=== PATIENT | female | born 1945 | race Caucasian/White ===

== ENCOUNTER → 2017-10-30 | Outpatient (CLI) | payer MEDICARE ==
--- NOTE | 2017-10-30 13:43 | CT ---
EXAMINATION TYPE: CT chest w con DATE OF EXAM: 10/30/2017 COMPARISON: November 19, 2012 HISTORY: sarcoidoisis CT DLP: 475.2 mGycm Automated exposure control for dose reduction was used. CONTRAST: CT scan of the chest is performed with IV Contrast, patient injected with 100 mL of Isovue 300. FINDINGS: LUNGS: Again noted are upper lobe and mid lung zone as well as lower lobe areas of interstitial lung disease and nodularity somewhat improved from prior examination. No suspicious masses appreciated. No evidence for pleural effusion or consolidation. MEDIASTINUM: Low right paratracheal adenopathy measures 1.0 cm. Subcarinal adenopathy measures 1.8 cm and demonstrates internal calcifications and is slightly improved from prior study. AP window adenop athy persists and is also unchanged and measures 9 mm. Bilateral hilar adenopathy measuring 1 cm on t he right and less than 1 cm on the left. Subcentimeter axillary lymph nodes noted. UPPER ABDOMEN: Left adrenal mass measures 2.7 cm. Overall no change from prior study. Fatty liver.Lar ge calculus left renal pelvis measuring 2.2 cm with urothelial thickening. OTHER: No additional significant abnormality is seen. IMPRESSION: 1. Persistent interstitial and reticulonodular changes of the lungs likely improved from prior study. 2. Mediastinal hilar adenopathy as discussed. 3. Large calculus left renal pelvis measuring 2.2 cm with urothelial thickening. 4. Stable left adrenal mass may reflect adenoma. Other possibilities not excluded.
== END | disposition home or self-care (01) ==
LOC: RADCTMAIN 12:02
PROVIDERS: ATTEND Internal Medicine Critical Care Medicine
DX: R91.8 Other nonspecific abnormal finding of lung field (principal); R59.0 Localized enlarged lymph nodes
CPT/HCPCS: 82565; 84520; 71260; 36415; Q9967

== ENCOUNTER → 2020-01-21 | Outpatient (CLI) | payer MEDICARE ==
--- NOTE | 2020-01-21 12:55 | US ---
"EXAMINATION TYPE: US renals and bladder DATE OF EXAM: 01/21/2020 COMPARISON: NONE CLINICAL HISTORY: R94.4 abnormal kidney function studies,E11.21. No pain per patient. Abnormal labs. EXAM MEASUREMENTS: Right Kidney: 10.8 x 4.9 x 4.9 cm Left Kidney: 10.7 x 4.0 x 5.0 cm Right Kidney: No hydronephrosis or masses seen. Left Kidney: Moderate to severe hydronephrosis. Areas of nonshadowing linear echogenicity around the renal pelvis likely represent echogenic renal sinus fat. No shadowing nephrolithiasis. Bladder: Distended with no wall thickening. Urine is anechoic. Bilateral Jets seen IMPRESSION: 1. Moderate to severe left hydronephrosis. Further evaluation with CT exam may be of benefit. 2. No right hydronephrosis. 3. No shadowing nephrolithiasis. 4. Normal urinary bladder. A [place] level critical message alert has been initiated for Jody Escobedo DO via the [employer] 36 0 | Critical Results System on 01/21/2020 12:52 PM. This message alert has been sent to Jody adan DO via the preferences provided by the clinician for the receipt of Radiology Critical Findings. [place] essage ID [id number]."
== END | disposition home or self-care (01) ==
LOC: RADUSWWP 09:04
PROVIDERS: ATTEND Family Medicine
DX: N13.30 Unspecified hydronephrosis (principal); E11.21 Type 2 diabetes mellitus with diabetic nephropathy
CPT/HCPCS: 76770

== ENCOUNTER → 2020-03-03 | Outpatient (CLI) | payer MEDICARE ==
--- NOTE | 2020-03-03 10:51 | CT ---
EXAMINATION TYPE: CT abdomen pelvis wo/w con DATE OF EXAM: 03/03/2020 HISTORY: abnormal US, hydronephrosis CT DLP: 2704.1mGycm Automated Exposure Control for Dose Reduction was Utilized. CONTRAST: CT scan of the abdomen and pelvis is performed with oral and without and with IV Contrast, patient in jected with 80 mL of Isovue 300. COMPARISON: Renal ultrasound January 21, 2020. CT chest October 30, 2017 and older CTs. FINDINGS: LUNG BASES: Mild linear scarring and/or atelectatic change. LIVER/GB: Gallbladder not seen and presumed surgically absent PANCREAS: No significant abnormality is seen. SPLEEN: No significant abnormality is seen. ADRENALS: Stable 2.4 cm left adrenal mass of low density consistent with benign lipid rich adenoma. KIDNEYS: Noncontrast images show 5 mm calculus lower pole level right kidney coronal image 53. There is larger 15 mm calculus lower pole left kidney coronal image 66 and 3 mm punctate calcificatio n mid pole level left kidney coronal image 66. There is a 5 mm calculus left kidney lower pole level coronal image 63. In addition there are 17 mm calculus at left UPJ axial image 33 series 3. This was present and noted on [address] Postcontrast images show symmetric corticomedullary uptake and excretion with moderate to severe left -sided hydronephrosis. No right-sided hydronephrosis. No hydroureter is present bilaterally. No intra luminal calculus in the poorly distended bladder. BOWEL: Oral contrast which is level of mid transverse colon. Focal moderate concentric wall thickenin g coronal image 23 is present. Follow-up advised. No suspicious proximal dilatation. Appendix within normal limits UTERUS/ADNEXA: Anteverted uterus. Scattered bilateral pelvic phleboliths LYMPH NODES: No greater than 1cm abdominal or pelvic lymph nodes are appreciated. OSSEOUS STRUCTURES: Exaggerated lumbar lordosis. Prominent facet arthropathy throughout the lumbar sp ine. Slight grade 1 anterolisthesis L3 on L4 and L4 on L5. OTHER: Moderate to large sized fat-containing umbilical hernia. IMPRESSION: Confirmation of moderate to severe left-sided hydronephrosis without delayed excretion du e to large calculus at left UPJ correlating with recent ultrasound. Additional nonobstructing renal c alculi bilaterally left more numerous than right.
== END | disposition home or self-care (01) ==
LOC: RADCTMAIN 07:53
PROVIDERS: ATTEND Family Medicine
DX: N13.2 Hydronephrosis with renal and ureteral calculous obstruction (principal); N13.30 Unspecified hydronephrosis
CPT/HCPCS: 82565; 84520; 74178; 36415; Q9967

== ENCOUNTER 2020-04-23 17:35 | Observation (INO) | payer MEDICARE ==
[2020-04-23] MEDS ORDERED: SODIUM CHLORIDE 0.9% 1,000 ML IV STA (17:52)
[2020-04-23 18:07] LABS: Basophils % (A) 0 %; Eosinophils # (A) 0.2 k/uL (0-0.7); Eosinophils % (A) 1 %; HCT 46.6 % (34.0-46.0); HGB 15.2 gm/dL (11.4-16.0); Lymphocytes # (A) 0.8 k/uL (1.0-4.8); Lymphocytes % (A) 8 %; MCH 30.7 pg (25.0-35.0); MCHC 32.7 g/dL (31.0-37.0); MCV 93.9 fL (80.0-100.0); Mean Platelet Volume 6.7; Monocytes # (A) 0.5 k/uL (0-1.0); Monocytes % (A) 5 %; Neutrophils # (A) 9.4 k/uL (1.3-7.7); Neutrophils % (A) 86 %; Platelet Count 191 k/uL (150-450); RBC 4.96 m/uL (3.80-5.40); RDW 14.7 % (11.5-15.5); WBC 10.9 k/uL (3.8-10.6)
--- NOTE | 2020-04-23 18:14 | ED ---
General Adult HPI - General Chief complaint: Weakness Stated complaint: Dehydration/Weakness Time Seen by Provider: 04/23/20 17:40 Source: patient, EMS Mode of arrival: EMS - History of Present Illness Initial comments: Dictation was produced using [employer] dictation software. please excuse any grammatical, word or spelling errors. This patient was cared for during a federal and state declared state of emergency secondary to Covid 19 Chief Complaint: 74-year-old female with kidney disease, dementia, diabetes presents to the emergency department for episode of weakness. History of Present Illness: 74-year-old female she presents to emergency department for weakness. Patient reports that she's been feeling weak today. Patient is a poor historian. EMS and patient's niece reports that she's had an episode of weakness today. She was assisted to the bathroom where she is having significant difficulties. Phallus and the toilet and when she tried to stand up she could not really get up. She ambulated couple steps where she felt really weak and could not stand up anymore. She was slowly. She was escorted down to the ground by her family member. Patient lives at home with niece, niece's in a 10-year-old daughter. The has severe back problems and the niece is working full-time unable to care for at home. Niece who has been tr valeria to help care for her reports that she was trying to get home health care nursing to assist in caring for the patient. He did not qualify. Niece is concerned that patient is seemingly more more difficult to care for at home. She has chronic diarrhea. She is seen for diarrhea by primary care physician who told niece that it's from dietary reasons. The ROS documented in this emergency department record has been reviewed and confirmed by me. Those systems with pertinent positive or negative responses have been documented in the HPI. All other systems are other negative and/or noncontributory. PHYSICAL EXAM: General Impression: Alert and oriented x3, not in acute distress HEENT: Normocephalic atraumatic, extra-ocular movements intact, pupils equal and reactive to light bilaterally, dry mucous membranes Cardiovascular: Heart regular rate and rhythm Chest: Able to complete full sentences, no retractions, no tachypnea Abdomen: abdomen soft, non-tender, non-distended, no organomegaly Musculoskeletal: Pulses present and equal in all extremities, no peripheral edema Motor: no focal deficits noted Neurological: CN II-XII grossly intact, no focal motor or sensory deficits noted Skin: Intact with no visualized rashes Psych: Normal affect and mood ED course: 74-year-old female presents to the emergency department for episode of weakness. Vital signs upon arrival are within acceptable limits. Patient appears comfortable at this time. Patient has a a poor social situation. EKG interpretation: Ventricular rate 76, sinus rhythm,. Interval 172, QRS 82, QTc 461. No MD prolongation, no QTC prolongation, no ST or T-wave changes noted. No old EKG for comparison. Overall, this EKG is unremarkable Laboratory evaluation obtained. Mild leukocytosis 10.9. Metabolic panel shows non-gap acidosis that is very mild. Lactic acidosis of 6.3. Urinalysis is negative per chest x-ray is clear. Medications reviewed. I displaced not entirely clear what is causing patient's lactic acidosis. It's likely from metformin. Patient given intravenous fluids. Otherwise, no other obvious source. Case discussed with [facility] nurse practitioner was willing to accept patient's [facility] hospitalist group. - Related Data Home Medications Medication Instructions Recorded Confirmed Aspirin EC [Ecotrin Low Dose] 81 mg PO DAILY 04/23/20 04/23/20 Atorvastatin [Lipitor] 20 mg PO HS 04/23/20 04/23/20 Clopidogrel Bisulfate [Plavix] 75 mg PO DAILY 04/23/20 04/23/20 Gabapentin [Neurontin] 100 mg PO TID 04/23/20 04/23/20 lisinopriL [Zestril] 5 mg PO HS 04/23/20 04/23/20 metFORMIN HCL [Glucophage] 1,000 mg PO BID 04/23/20 04/23/20 sitaGLIPtin PHOSPHATE [Januvia] 100 mg PO DAILY 04/23/20 04/23/20 Allergies Allergy/AdvReac Type Severity Reaction Status Date / Time No Known Allergies Allergy Verified 10/02/17 10:21 Review of Systems ROS Statement: Those systems with pertinent positive or pertinent negative responses have been documented in the HPI. ROS Other: All systems not noted in ROS Statement are negative. Past Medical History Past Medical History: Diabetes Mellitus, Respiratory Disorder Additional Past Medical History / Comment(s): sarcoidosis History of Any Multi-Drug Resistant Organisms: None Reported Past Surgical History: Cholecystectomy Past Anesthesia/Blood Transfusion Reactions: No Reported Reaction Past Psychological History: Depression Smoking Status: Former smoker Past Alcohol Use History: None Reported Past Drug Use History: None Reported Course Vital Signs 04/23/20 17:37 Temperature 97.7 F Pulse Rate 79 Respiratory 18 Rate Blood Pressure 138/83 O2 Sat by Pulse 98 Oximetry Medical Decision Making - Lab Data Result diagrams: 04/23/20 18:01 04/23/20 18:01 Lab Results 04/23/20 04/23/20 04/23/20 Range/Units 18:01 18:01 18:01 WBC 10.9 H (3.8-10.6) k/uL RBC 4.96 (3.80-5.40) m/uL Hgb 15.2 (11.4-16.0) gm/dL Hct 46.6 H (34.0-46.0) % MCV 93.9 (80.0-100.0) fL MCH 30.7 (25.0-35.0) pg MCHC 32.7 (31.0-37.0) g/dL RDW 14.7 (11.5-15.5) % Plt Count 191 (150-450) k/uL MPV 6.7 Neutrophils % 86 % Lymphocytes % 8 % Monocytes % 5 % Eosinophils % 1 % Basophils % 0 % Neutrophils # 9.4 H (1.3-7.7) k/uL Lymphocytes # 0.8 L (1.0-4.8) k/uL Monocytes # 0.5 (0-1.0) k/uL Eosinophils # 0.2 (0-0.7) k/uL Basophils # 0.0 (0-0.2) k/uL Sodium 141 (137-145) mmol/L Potassium 3.7 (3.5-5.1) mmol/L Chloride 109 H (98-107) mmol/L Carbon Dioxide 21 L (22-30) mmol/L Anion Gap 11 mmol/L BUN 14 (7-17) mg/dL Creatinine 0.88 (0.52-1.04) mg/dL Est GFR (CKD-EPI)AfAm 74 (>60 ml/min/1.73 sqM) Est GFR (CKD-EPI)NonAf 64 (>60 ml/min/1.73 sqM) Glucose 159 H (74-99) mg/dL Plasma Lactic Acid Raudel 6.4 H* (0.7-2.0) mmol/L Calcium 9.3 (8.4-10.2) mg/dL Magnesium 1.5 L (1.6-2.3) mg/dL Total Bilirubin 0.7 (0.2-1.3) mg/dL AST 39 H (14-36) U/L ALT 37 H (4-34) U/L Alkaline Phosphatase 87 (38-126) U/L Total Protein 6.7 (6.3-8.2) g/dL Albumin 3.7 (3.5-5.0) g/dL Lipase (23-300) U/L Urine Color Urine Appearance (Clear) Urine pH (5.0-8.0) Ur Specific [place] (1.001-1.035) Urine Protein (Negative) Urine Glucose (UA) (Negative) Urine Ketones (Negative) Urine Blood (Negative) Urine Nitrite (Negative) Urine Bilirubin (Negative) Urine Urobilinogen (<2.0) mg/dL Ur Leukocyte Esterase (Negative) Urine RBC (0-5) /hpf Urine WBC (0-5) /hpf Hyaline Casts (0-2) /lpf Urine Mucus (None) /hpf 04/23/20 04/23/20 Range/Units 18:01 18:29 WBC (3.8-10.6) k/uL RBC (3.80-5.40) m/uL Hgb (11.4-16.0) gm/dL Hct (34.0-46.0) % MCV (80.0-100.0) fL MCH (25.0-35.0) pg MCHC (31.0-37.0) g/dL RDW (11.5-15.5) % Plt Count (150-450) k/uL MPV Neutrophils % % Lymphocytes % % Monocytes % % Eosinophils % % Basophils % % Neutrophils # (1.3-7.7) k/uL Lymphocytes # (1.0-4.8) k/uL Monocytes # (0-1.0) k/uL Eosinophils # (0-0.7) k/uL Basophils # (0-0.2) k/uL Sodium (137-145) mmol/L Potassium (3.5-5.1) mmol/L Chloride (98-107) mmol/L Carbon Dioxide (22-30) mmol/L Anion Gap mmol/L BUN (7-17) mg/dL Creatinine (0.52-1.04) mg/dL Est GFR (CKD-EPI)AfAm (>60 ml/min/1.73 sqM) Est GFR (CKD-EPI)NonAf (>60 ml/min/1.73 sqM) Glucose (74-99) mg/dL Plasma Lactic Acid Raudel (0.7-2.0) mmol/L Calcium (8.4-10.2) mg/dL Magnesium (1.6-2.3) mg/dL Total Bilirubin (0.2-1.3) mg/dL AST (14-36) U/L ALT (4-34) U/L Alkaline Phosphatase (38-126) U/L Total Protein (6.3-8.2) g/dL Albumin (3.5-5.0) g/dL Lipase 32 (23-300) U/L Urine Color Yellow Urine Appearance Clear (Clear) Urine pH 5.0 (5.0-8.0) Ur Specific [place] 1.018 (1.001-1.035) Urine Protein Negative (Negative) Urine Glucose (UA) Negative (Negative) Urine Ketones Negative (Negative) Urine Blood Negative (Negative) Urine Nitrite Negative (Negative) Urine Bilirubin Negative (Negative) Urine Urobilinogen <2.0 (<2.0) mg/dL Ur Leukocyte Esterase Trace H (Negative) Urine RBC 2 (0-5) /hpf Urine WBC 5 (0-5) /hpf Hyaline Casts 6 H (0-2) /lpf Urine Mucus Rare H (None) /hpf Disposition Clinical Impression: Lactic acidosis Disposition: ADMITTED IP TO THIS HOSP Condition: Fair Referrals: Jody Escobedo DO [Primary Care Provider] - 1-2 days Decision Time: 19:08
[2020-04-23 18:20] LABS: Albumin 3.7 g/dL (3.5-5.0); Calcium 9.3 mg/dL (8.4-10.2); Magnesium 1.5 mg/dL (1.6-2.3); Potassium 3.7 mmol/L (3.5-5.1); Total Bilirubin 0.7 mg/dL (0.2-1.3); Total Protein 6.7 g/dL (6.3-8.2)
[2020-04-23] MEDS ORDERED: PIPERACILLIN-TAZOBACTAM 3.375 GM in SODIUM CHLORIDE 0.9% 100 ML IVPB STA (18:34)
[2020-04-23 18:40] LABS: Appearance,Urine Clear (Clear); Bilirubin,Urine Negative (Negative); Blood,Urine Negative (Negative); Color,Urine Yellow; Glucose,Urine (UA) Negative (Negative); Hyaline Casts,Urine 6 /lpf (0-2); Ketones,Urine Negative (Negative); Leukocyte Esterase,Urine Trace (Negative); Mucus,Urine Rare /hpf; Nitrite,Urine Negative (Negative); Protein,Urine Negative (Negative); RBC,Urine 2 /hpf (0-5); Specific Gravity,Urine 1.018 (1.001-1.035); Urobilinogen,Urine <2.0 mg/dL (<2.0); WBC,Urine 5 /hpf (0-5)
--- NOTE | 2020-04-23 18:49 | XR ---
EXAMINATION TYPE: XR chest 1V portable DATE OF EXAM: 04/23/2020 COMPARISON: NONE HISTORY: Weakness and intermittent nausea and vomiting. TECHNIQUE: Single frontal view of the chest is obtained. FINDINGS: There is no focal air space opacity, pleural effusion, or pneumothorax seen. The cardiac silhouette size is within normal limits. The osseous structures are intact. IMPRESSION: No acute process.
[2020-04-23] MEDS: MAGNESIUM SULFATE-D5W PMX 1 GM in DEXTROSE/WATER 1 100ML.BAG IVPB SCH ×2 (18:55→20:12)
[2020-04-23] MEDS ORDERED: ONDANSETRON 4 MG/2 ML VIAL IVP PRN (19:02)
[2020-04-23] MEDS ORDERED: NALOXONE 0.4 MG/ML 1 ML VIAL IV PRN (19:02)
[2020-04-23] MEDS ORDERED: ACETAMINOPHEN TAB 325 MG TAB PO PRN (19:02)
[2020-04-23] MEDS: SODIUM CHLORIDE 0.9% 1,000 ML IV SCH (21:35)
[2020-04-24 04:20] LABS: Basophils % (A) 0 %; Eosinophils # (A) 0.1 k/uL (0-0.7); Eosinophils % (A) 1 %; HCT 39.4 % (34.0-46.0); Lymphocytes # (A) 1.5 k/uL (1.0-4.8); Lymphocytes % (A) 19 %; MCH 30.9 pg (25.0-35.0); MCV 93.8 fL (80.0-100.0); Monocytes # (A) 0.5 k/uL (0-1.0); Monocytes % (A) 6 %; Neutrophils # (A) 5.6 k/uL (1.3-7.7); Neutrophils % (A) 72 %; Platelet Count 164 k/uL (150-450); RDW 14.8 % (11.5-15.5); WBC 7.8 k/uL (3.8-10.6)
[2020-04-24] MEDS: SODIUM CHLORIDE 0.9% 1,000 ML IV SCH ×3 (04:39→23:28)
[2020-04-24 04:50] LABS: ALT 32 U/L (4-34); AST 32 U/L (14-36); African American GFR (CKD) 85 (>60 ml/min/1.73 sqM); Albumin 2.9 g/dL (3.5-5.0); Albumin/Globulin Ratio 1.1; Alkaline Phosphatase 72 U/L (38-126); Blood Urea Nitrogen 11 mg/dL (7-17); Calcium 8.8 mg/dL (8.4-10.2); Carbon Dioxide 23 mmol/L (22-30); Globulin 2.7 g/dL; Glucose 110 mg/dL (74-99); Non-African American GFR(CKD) 74 (>60 ml/min/1.73 sqM); Potassium 3.8 mmol/L (3.5-5.1); Sodium 140 mmol/L (137-145); Total Bilirubin 0.7 mg/dL (0.2-1.3); Total Protein 5.6 g/dL (6.3-8.2)
[2020-04-24 04:51] LABS: Anion Gap 5 mmol/L; Chloride 112 mmol/L (98-107)
[2020-04-24 07:11] LABS: Glucose,Whole Blood 100 mg/dL (75-99)
[2020-04-24] MEDS ORDERED: PANTOPRAZOLE 40 MG/10 ML VIAL IV SCH (09:00)
--- NOTE | 2020-04-24 11:05 | P.HPIM ---
History of Present Illness 74-year-old female was brought in because of from generalized weakness. Patient didn't have a fall but about to fall and was tested to ground. Patient is alert oriented 2. Patient does complain that she has memory issues for a while. Patient appears to have dementia which may be vascular dementia , patient is able to provide me fairly good history and patient denied any fever chills patient denied dysuria cough. All the workup for sepsis is negative. Patient is found to have lactic acidosis and patient is on metformin which can cause lactic acidosis. Patient is bit dehydrated patient received IV fluids overnight. Patient is on dual antiplatelet therapy not sure why patient is on dual antiplatelet therapy. Review of Systems REVIEW OF SYSTEMS: CONSTITUTIONAL: No fever, no malaise, no fatigue. HEENT: No recent visual problems or hearing problems. Denied any sore throat. CARDIOVASCULAR: No chest pain, orthopnea, PND, no palpitations, no syncope. PULMONARY: No shortness of breath, no cough, no hemoptysis. GASTROINTESTINAL: No diarrhea, no nausea, no vomiting, no abdominal pain. NEUROLOGICAL: No headaches, no weakness, no numbness. HEMATOLOGICAL: Denies any bleeding or petechiae. GENITOURINARY: Denies any burning micturition, frequency, or urgency. MUSCULOSKELETAL/RHEUMATOLOGICAL: Denies any joint pain, swelling, or any muscle pain. ENDOCRINE: Denies any polyuria or polydipsia. The rest of the 14-point review of systems is negative. Past Medical History Past Medical History: Dementia, Diabetes Mellitus, Respiratory Disorder Additional Past Medical History / Comment(s): sarcoidosis History of Any Multi-Drug Resistant Organisms: None Reported Past Surgical History: Cholecystectomy Past Anesthesia/Blood Transfusion Reactions: No Reported Reaction Past Psychological History: Depression Smoking Status: Never smoker Past Alcohol Use History: None Reported Past Drug Use History: None Reported Medications and Allergies Home Medications Medication Instructions Recorded Confirmed Type Aspirin EC [Ecotrin Low Dose] 81 mg PO DAILY 04/23/20 04/23/20 History Atorvastatin [Lipitor] 20 mg PO HS 04/23/20 04/23/20 History Clopidogrel Bisulfate [Plavix] 75 mg PO DAILY 04/23/20 04/23/20 History Gabapentin [Neurontin] 100 mg PO TID 04/23/20 04/23/20 History lisinopriL [Zestril] 5 mg PO HS 04/23/20 04/23/20 History sitaGLIPtin PHOSPHATE [Januvia] 100 mg PO DAILY 04/23/20 04/23/20 History Allergies Allergy/AdvReac Type Severity Reaction Status Date / Time No Known Allergies Allergy Verified 10/02/17 10:21 Physical Exam Vitals: Vital Signs Temp Pulse Pulse Resp BP BP Pulse Ox 04/24/20 07:38 97.9 F 63 17 158/83 97 04/24/20 01: 97.3 F L 53 L 129/66 96 04/23/20 21:00 18 04/23/20 20:59 97.8 F 63 108/64 96 04/23/20 20:15 70 18 116/52 95 04/23/20 17:37 97.7 F 79 18 138/83 98 Intake and Output 04/23/20 04/24/20 04/24/20 22:59 06:59 14:59 Other: Voiding Method Diaper Diaper Weight 81.647 kg PHYSICAL EXAMINATION: GENERAL: The patient is alert and oriented x3, not in any acute distress. Well developed, well nourished. HEENT: Pupils are round and equally reacting to light. EOMI. No scleral icterus. No conjunctival pallor. Normocephalic, atraumatic. No pharyngeal erythema. No thyromegaly. CARDIOVASCULAR: S1 and S2 present. No murmurs, rubs, or gallops. PULMONARY: Chest is clear to auscultation, no wheezing or crackles. ABDOMEN: Soft, nontender, nondistended, normoactive bowel sounds. No palpable organomegaly. MUSCULOSKELETAL: No joint swelling or deformity. EXTREMITIES: No cyanosis, clubbing, or pedal edema. NEUROLOGICAL: Gross neurological examination did not reveal any focal deficits. SKIN: No rashes. Results CBC & Chem 7: 04/24/20 04:00 04/24/20 04:00 Labs: Abnormal Lab Results - Last 24 Hours (Table) 04/23/20 04/23/20 04/23/20 Range/Units 18:01 18:01 18:01 WBC 10.9 H (3.8-10.6) k/uL Hct 46.6 H (34.0-46.0) % Neutrophils # 9.4 H (1.3-7.7) k/uL Lymphocytes # 0.8 L (1.0-4.8) k/uL Chloride 109 H (98-107) mmol/L Carbon Dioxide 21 L (22-30) mmol/L Glucose 159 H (74-99) mg/dL POC Glucose (mg/dL) (75-99) mg/dL Plasma Lactic Acid Raudel 6.4 H* (0.7-2.0) mmol/L Magnesium 1.5 L (1.6-2.3) mg/dL AST 39 H (14-36) U/L ALT 37 H (4-34) U/L Total Protein (6.3-8.2) g/dL Albumin (3.5-5.0) g/dL Ur Leukocyte Esterase (Negative) Hyaline Casts (0-2) /lpf Urine Mucus (None) /hpf 04/23/20 04/23/20 04/24/20 Range/Units 18:29 21:10 00:50 WBC (3.8-10.6) k/uL Hct (34.0-46.0) % Neutrophils # (1.3-7.7) k/uL Lymphocytes # (1.0-4.8) k/uL Chloride (98-107) mmol/L Carbon Dioxide (22-30) mmol/L Glucose (74-99) mg/dL POC Glucose (mg/dL) (75-99) mg/dL Plasma Lactic Acid Raudel 3.2 H* 2.7 H* (0.7-2.0) mmol/L Magnesium (1.6-2.3) mg/dL AST (14-36) U/L ALT (4-34) U/L Total Protein (6.3-8.2) g/dL Albumin (3.5-5.0) g/dL Ur Leukocyte Esterase Trace H (Negative) Hyaline Casts 6 H (0-2) /lpf Urine Mucus Rare H (None) /hpf 04/24/20 04/24/20 Range/Units 04:00 07:10 WBC (3.8-10.6) k/uL Hct (34.0-46.0) % Neutrophils # (1.3-7.7) k/uL Lymphocytes # (1.0-4.8) k/uL Chloride 112 H (98-107) mmol/L Carbon Dioxide (22-30) mmol/L Glucose 110 H (74-99) mg/dL POC Glucose (mg/dL) 100 H (75-99) mg/dL Plasma Lactic Acid Raud[place] (0.7-2.0) mmol/L Magnesium (1.6-2.3) mg/dL AST (14-36) U/L ALT (4-34) U/L Total Protein 5.6 L (6.3-8.2) g/dL Albumin 2.9 L (3.5-5.0) g/dL Ur Leukocyte Esterase (Negative) Hyaline Casts (0-2) /lpf Urine Mucus (None) /hpf Assessment and Plan Plan: -Generalized weakness: Secondary to advanced age and dementia. As nursing staff to ablate the patient and patient is strong enough to be discharged patient will be discharged today or rales patient will need evaluation with physical therapy and occupational therapy. The patient is staying here will also do mini cognitive testing for her dementia. -possible vascular dementia -mild dehydration improved with IV fluids -Type 2 diabetes mellitus -Lactic acidosis: Secondary to metformin as mentioned above metformin were discussed in your patient is also on Januvia which she will continue. Mild dehydration may have contributed to her lactic acidosis as well there is no evidence of sepsis at this time.
--- NOTE | 2020-04-24 11:13 | P.DS ---
Providers Date of admission: 04/23/20 19:03 Attending physician: Kartik Horta Primary care physician: Jody Escobedo Hospital Course: Patient will require subacute intimidation placement. Patient will be discharged today will also try and set up home care if she qualifies for that. Patient has a walker. Patient will be referred to neurologist for her dementia. Patient Condition at Discharge: Fair Plan - Discharge Summary Discharge Rx Participant: Yes New Discharge Prescriptions: Discontinued metFORMIN HCL [Glucophage] 1,000 mg PO BID No Action sitaGLIPtin PHOSPHATE [Januvia] 100 mg PO DAILY lisinopriL [Zestril] 5 mg PO HS Clopidogrel Bisulfate [Plavix] 75 mg PO DAILY Atorvastatin [Lipitor] 20 mg PO HS Aspirin EC [Ecotrin Low Dose] 81 mg PO DAILY Gabapentin [Neurontin] 100 mg PO TID Discharge Medication List Aspirin EC [Ecotrin Low Dose] 81 mg PO DAILY 04/23/20 [History] Atorvastatin [Lipitor] 20 mg PO HS 04/23/20 [History] Clopidogrel Bisulfate [Plavix] 75 mg PO DAILY 04/23/20 [History] Gabapentin [Neurontin] 100 mg PO TID 04/23/20 [History] lisinopriL [Zestril] 5 mg PO HS 04/23/20 [History] sitaGLIPtin PHOSPHATE [Januvia] 100 mg PO DAILY 04/23/20 [History] Follow up Appointment(s)/Referral(s): Jody Escobedo DO [Primary Care Provider] - 3 Days Emelia Kee MD [REFERRING] - 1 Week Discharge Disposition: HOME WITH HOME HEALTH SERVICES
[2020-04-24 11:40] LABS: Glucose,Whole Blood 148 mg/dL (75-99)
[2020-04-24] MEDS: GABAPENTIN 100 MG CAP PO SCH ×2 (16:52→20:50)
[2020-04-24 16:54] LABS: Glucose,Whole Blood 104 mg/dL (75-99)
[2020-04-24 20:37] LABS: Glucose,Whole Blood 102 mg/dL (75-99)
[2020-04-24] MEDS: ATORVASTATIN 20 MG TAB PO SCH (20:51)
[2020-04-24] MEDS: lisinopriL 5 MG TAB PO SCH (20:51)
[2020-04-25] MEDS: SODIUM CHLORIDE 0.9% 1,000 ML IV SCH (05:55)
[2020-04-25 06:45] LABS: Glucose,Whole Blood 110 mg/dL (75-99)
[2020-04-25] MEDS: GABAPENTIN 100 MG CAP PO SCH ×3 (07:34→20:44)
[2020-04-25] MEDS: ASPIRIN 81 MG PO SCH (07:34)
[2020-04-25] MEDS: ENOXAPARIN 40 MG/0.4 ML SYRINGE SQ SCH (07:34)
[2020-04-25] MEDS: PANTOPRAZOLE 40 MG TABLET PO SCH (07:34)
[2020-04-25] MEDS: LINAGLIPTIN 5 MG TABLET PO SCH (07:34)
[2020-04-25] MEDS: CLOPIDOGREL 75 MG TAB PO SCH (07:35)
--- NOTE | 2020-04-25 10:02 | P.PN ---
Subjective 74-year-old female was brought in because of from generalized weakness. Patient didn't have a fall but about to fall and was tested to ground. Patient is alert oriented 2. Patient does complain that she has memory issues for a while. Patient appears to have dementia which may be vascular dementia , patient is able to provide me fairly good history and patient denied any fever chills patient denied dysuria cough. All the workup for sepsis is negative. Patient is found to have lactic acidosis and patient is on metformin which can cause l actic acidosis. Patient is bit dehydrated patient received IV fluids overnight. Patient is on dual antiplatelet therapy not sure why patient is on dual antiplatelet therapy. 04/25/2020 Patient is alert oriented 1 today patient appears to have fluctuating mental status. This is secondary to advanced dementia. Patient will need placement physical therapy and occupational therapy evaluation is pending, magnesium is bit low which we will replace leukocytosis resolved dehydration improved.. Constitutional: Denied any fatigue denied any fever. Cardio vascular: denied any chest pain, palpitations Gastrointestinal denied any nausea vomiting Pulmonary: Denied any shortness of breath cough Neurologic denied any new focal deficits. Patient is not a reliable historian because of her dementia. All inpatient medications were reviewed and appropriate changes in these medications as dictated in the interval history and assessment and plan. Objective - Vital Signs Vital signs: Vital Signs Temp 97.6 F 04/25/20 07:57 Pulse 60 04/25/20 07:57 Resp 17 04/25/20 07:57 BP 159/79 04/25/20 07:57 Pulse Ox 94 L 04/25/20 07:57 Intake & Output 04/24/20 04/25/20 04/25/20 18:59 06:59 18:59 Output Total 1750 Balance -1750 Output: Urine 1750 Other: Voiding Method Diaper Diaper Incontinent External Catheter # Voids 3 - Exam PHYSICAL EXAMINATION: GENERAL: The patient is alert and oriented x1, not in any acute distress. Well developed, well nourished. HEENT: Pupils are round and equally reacting to light. EOMI. No scleral icterus. No conjunctival pallor. Normocephalic, atraumatic. No pharyngeal erythema. No thyromegaly. CARDIOVASCULAR: S1 and S2 present. No murmurs, rubs, or gallops. PULMONARY: Chest is clear to auscultation, no wheezing or crackles. ABDOMEN: Soft, nontender, nondistended, normoactive bowel sounds. No palpable organomegaly. MUSCULOSKELETAL: No joint swelling or deformity. EXTREMITIES: No cyanosis, clubbing, or pedal edema. NEUROLOGICAL: Gross neurological examination did not reveal any focal deficits. SKIN: No rashes. - Labs CBC & Chem 7: 04/24/20 04:00 04/24/20 04:00 Labs: Abnormal Lab Results - Last 24 Hours (Table) 04/24/20 04/24/20 04/24/20 Range/Units 11:39 16:53 20:36 POC Glucose (mg/dL) 148 H 104 H 102 H (75-99) mg/dL 04/25/20 Range/Units 06:44 POC Glucose (mg/dL) 110 H (75-99) mg/dL Microbiology - Last 24 Hours (Table) 04/23/20 18:46 Blood Culture - Preliminary Blood No Growth after 24 hours Assessment and Plan Plan: -Generalized weakness: Secondary to advanced age and dementia. We will obtain mini cognitive testing patient will need placement. Patient dementia is pretty advanced. -possible vascular dementia -mild dehydration improved with IV fluids -Type 2 diabetes mellitus -Lactic acidosis: Secondary to metformin as mentioned above metformin were discussed in your patient is also on Januvia which she will continue. Mild dehydration may have contributed to her lactic acidosis as well there is no evidence of sepsis at this time. DVT prophylaxis: Lovenox
[2020-04-25] MEDS: MAGNESIUM SULFATE-D5W PMX 1 GM in DEXTROSE/WATER 1 100ML.BAG IVPB SCH ×2 (10:44→12:34)
[2020-04-25 11:32] LABS: Glucose,Whole Blood 130 mg/dL (75-99)
[2020-04-25 16:49] LABS: Glucose,Whole Blood 101 mg/dL (75-99)
[2020-04-25] MEDS: ATORVASTATIN 20 MG TAB PO SCH (20:44)
[2020-04-25] MEDS: lisinopriL 5 MG TAB PO SCH (20:44)
[2020-04-25 21:02] LABS: Glucose,Whole Blood 125 mg/dL (75-99)
[2020-04-26 06:41] LABS: Glucose,Whole Blood 135 mg/dL (75-99)
[2020-04-26] MEDS: ENOXAPARIN 40 MG/0.4 ML SYRINGE SQ SCH (08:00)
[2020-04-26] MEDS: PANTOPRAZOLE 40 MG TABLET PO SCH (08:00)
[2020-04-26] MEDS: LINAGLIPTIN 5 MG TABLET PO SCH (08:00)
[2020-04-26] MEDS: CLOPIDOGREL 75 MG TAB PO SCH (08:00)
[2020-04-26] MEDS: ASPIRIN 81 MG PO SCH (08:00)
[2020-04-26] MEDS: GABAPENTIN 100 MG CAP PO SCH (08:00)
--- NOTE | 2020-04-26 11:07 | P.DS ---
Providers Date of admission: 04/23/20 19:03 Attending physician: Kartik Horta Primary care physician: Jody Fanny [facility] Course: 74-year-old female was brought in because of from generalized weakness. Patient didn't have a fall but about to fall and was tested to ground. Patient is alert oriented 2. Patient does complain that she has memory issues for a while. Patient appears to have dementia which may be vascular dementia , patient is able to provide me fairly good history and patient denied any fever chills patient denied dysuria cough. All the workup for sepsis is negative. Patient is found to have lactic acidosis and patient is on metformin which can cause lactic acidosis. Patient is bit dehydrated patient received IV fluids overnight. Patient is on dual antiplatelet therapy not sure why patient is on dual antiplatelet therapy. 04/25/2020 Patient is alert oriented 1 today patient appears to have fluctuating mental status. This is secondary to advanced dementia. Patient will need placement physical therapy and occupational therapy evaluation is pending, magnesium is bit low which we will replace leukocytosis resolved dehydration improved.. 04/26/2020 Patient is alert oriented 2-3 today. It's typical for an advanced dementia patient to have acute phases of lucidity and non-lucid phases. Patient most probably will be discharged to subacute rehabilitation today. PT and OT will evaluate the patient. PHYSICAL EXAMINATION: GENERAL: The patient is alert and oriented x2-3, not in any acute distress. Well developed, well nourished. HEENT: Pupils are round and equally reacting to light. EOMI. No scleral icterus. No conjunctival pallor. Normocephalic, atraumatic. No pharyngeal erythema. No thyromegaly. CARDIOVASCULAR: S1 and S2 present. No murmurs, rubs, or gallops. PULMONARY: Chest is clear to auscultation, no wheezing or crackles. ABDOMEN: Soft, nontender, nondistended, normoactive bowel sounds. No palpable organomegaly. MUSCULOSKELETAL: No joint swelling or deformity. EXTREMITIES: No cyanosis, clubbing, or pedal edema. NEUROLOGICAL: Gross neurological examination did not reveal any focal deficits. SKIN: No rashes. Assessment and Plan Plan: -Generalized weakness: Secondary to advanced age and dementia. We will obtain mini cognitive testing patient will need placement. Patient's dementia is pretty advanced. -possible vascular dementia -mild dehydration improved with IV fluids -Rule out urinary tract infection -Type 2 diabetes mellitus -Lactic acidosis: Secondary to metformin as mentioned above metformin were discussed in your patient is also on Januvia which she will continue. Mild dehydration may have contributed to her lactic acidosis as well there is no evidence of sepsis at this time. mostly probably will be discharged to subacute rehab Patient Condition at Discharge: Fair Plan - Discharge Summary Discharge Rx Participant: Yes New Discharge Prescriptions: Discontinued metFORMIN HCL [Glucophage] 1,000 mg PO BID No Action sitaGLIPtin PHOSPHATE [Januvia] 100 mg PO DAILY lisinopriL [Zestril] 5 mg PO HS Clopidogrel Bisulfate [Plavix] 75 mg PO DAILY Atorvastatin [Lipitor] 20 mg PO HS Aspirin EC [Ecotrin Low Dose] 81 mg PO DAILY Gabapentin [Neurontin] 100 mg PO TID Discharge Medication List Aspirin EC [Ecotrin Low Dose] 81 mg PO DAILY 04/23/20 [History] Atorvastatin [Lipitor] 20 mg PO HS 04/23/20 [History] Clopidogrel Bisulfate [Plavix] 75 mg PO DAILY 04/23/20 [History] Gabapentin [Neurontin] 100 mg PO TID 04/23/20 [History] lisinopriL [Zestril] 5 mg PO HS 04/23/20 [History] sitaGLIPtin PHOSPHATE [Januvia] 100 mg PO DAILY 04/23/20 [History] Follow up Appointment(s)/Referral(s): Jody Escobedo DO [Primary Care Provider] - 3 Days (Office closed at time of discharge. Please call to make appointment on Sunday) Emelia Kee MD [REFERRING] - 1 Week () Discharge Disposition: TRANSFER TO SNF/ECF
[2020-04-26 11:24] LABS: Glucose,Whole Blood 126 mg/dL (75-99)
[2020-04-26 14:40] VITALS: BP 168/82; PULSE 74; RESP 18; TEMP 98.1
== END 2020-04-26 14:33 ==
LOC: EC 17:35 → 4SSUR 19:03
PROVIDERS: ADMIT Hospitalist; ATTEND Hospitalist
DX: R53.1 Weakness (principal); F03.90 Unspecified dementia, unspecified severity, without behavioral disturbance, psychotic disturbance, mood disturbance, and anxiety; E86.0 Dehydration; Z20.828 Contact with and (suspected) exposure to other viral communicable diseases; E11.9 Type 2 diabetes mellitus without complications; E87.2 Acidosis; T38.3X5A Adverse effect of insulin and oral hypoglycemic [antidiabetic] drugs, initial encounter; K52.9 Noninfective gastroenteritis and colitis, unspecified; D72.829 Elevated white blood cell count, unspecified; D86.9 Sarcoidosis, unspecified; Z90.49 Acquired absence of other specified parts of digestive tract; F32.9 Major depressive disorder, single episode, unspecified; Z87.891 Personal history of nicotine dependence; Z79.02 Long term (current) use of antithrombotics/antiplatelets; Z79.84 Long term (current) use of oral hypoglycemic drugs; Z79.82 Long term (current) use of aspirin; Z79.899 Other long term (current) drug therapy
CPT/HCPCS: 96366 ×2; 96372 ×2; 96375; 96361; 96365; 99285; 36415; 93005; 97162; 97166; 80053 ×2; 83605 ×2; 83690; 83735 ×3; 85025 ×2; 81001; 87040; 87635; 71045; G0378 ×4; J2543; J1650 ×2; J3475 ×2; C9113

== ENCOUNTER → 2020-06-21 | Outpatient (CLI) | payer MEDICARE ==
--- NOTE | 2020-06-21 16:05 | US ---
EXAMINATION TYPE: US kidneys/renal and bladder DATE OF EXAM: 06/21/2020 COMPARISON: 01/21/[address] 03/03/2020 CLINICAL HISTORY: 74-year-old female N18.31 STAGE 3 CHR KIDNEY DISEASE. Abnormal labs TECHNIQUE: Multiple sonographic images of the kidneys and bladder are seen. FINDINGS: EXAM MEASUREMENTS: Right Kidney: 10.4 x 4.7 x 5.4 cm Left Kidney: 9.4 x 4.9 x 5.0 cm Plant Guard notes:Limited due to overlying bowel gas and body habitus Right Kidney: prominent dromedary hump vs cortical mass measuring 3.1 x 2.8 x 2.8 cm. The former is f avored as no abnormal mass was identified on the patient's 03/03/2020 CT. Short interval follow-up ul trasound is recommended to reassess this area. Left Kidney: Limited visualization due to overlying bowel gas. Mild hydronephrosis seen. Bladder: Underdistention limits its evaluation Bilateral Jets not seen IMPRESSION: 1. Examination limitations due to large patient body habitus and overlying bowel gas. Limited detail visualization of the left kidney. There seems to be mild residual hydronephrosis on the left. 2. Either a dromedary hump measuring 3.1 cm versus a cortical mass of the right renal midpole. The fo rmer is favored. Three-month follow-up ultrasound recommended to reassess.
== END ==
LOC: RADUSWWP 14:08
PROVIDERS: ATTEND Internal Medicine
DX: N18.30 Chronic kidney disease, stage 3 unspecified (principal)
CPT/HCPCS: 76770

== ENCOUNTER 2020-07-08 07:26 | Day surgery (SDC) | payer MEDICARE, OTHER ==
[2020-07-05 15:55] VITALS: BMI 36.6
--- NOTE | 2020-07-07 22:40 | P.HPIHPCON ---
History of Present Illness H&P Date: 07/02/20 Chief Complaint: left ureteral calculi This is 74 old female with history of a 1.7 cm left UPJ stone, and multiple nonobstructive renal calculi. Stone has been present since February 2020. CT was reviewed and there is evidence of hydronephrosis on that side. Additionally she has significant stone burden in the lower pole. Discussed with her the option of doing Ureteroscopy vs PCNL. Discussed risk and benefit of each approach. Discussed with her and her son that PCNL has higher clearance rate but is associated with higher complication given her comorbidities. Discussed with her if stone is impacted then we can only proceed with stent placement followed by ureteroscopy in the future. Discussed with her given the size of the stone she might need a repeated ureteroscopy to clear her stone burden. Discussed that the lower pole stone are unlikely to be addressed during ureteroscopy given the location. She understood all risks and agreed to proceed with left sided ureteroscopy with holmium laser and stone basketting and stent placement, understood this might be a staged procedure. Consent for Procedure: I have explained the operation/procedure to the patient, including the risks, benefits, side effects, alternative therapies (including not receiving the proposed treatment or service), the likelihood of the patient achieving his/her goals, and potential recuperation problems for the procedure/sedation/analgesia, as well as any blood products, if indicated. I also explained to the patient the risks, benefits and side effects of the alternatives, as well as the risks related to not receiving the proposed procedure, care, treatment, or services. Past Medical History Past Medical History: Dementia, Diabetes Mellitus, Respiratory Disorder Additional Past Medical History / Comment(s): sarcoidosis History of Any Multi-Drug Resistant Organisms: None Reported Past Surgical History: Cholecystectomy Past Anesthesia/Blood Transfusion Reactions: No Reported Reaction Past Psychological History: Depression Smoking Status: Never smoker Past Alcohol Use History: None Reported Past Drug Use History: None Reported Medications and Allergies Home Medications Medication Instructions Recorded Confirmed Type Aspirin EC [Ecotrin Low Dose] 81 mg PO DAILY 04/23/20 07/06/20 History Atorvastatin [Lipitor] 20 mg PO HS 04/23/20 07/05/20 History Clopidogrel Bisulfate [Plavix] 75 mg PO DAILY 04/23/20 07/06/20 History sitaGLIPtin PHOSPHATE [Januvia] 100 mg PO DAILY 04/23/20 07/05/20 History Gabapentin [Neurontin] 100 mg PO TID #14 cap 04/26/20 07/05/20 Rx Acetaminophen [Tylenol] 650 mg PO Q6H PRN 07/05/20 07/05/20 History Ciprofloxacin HCl [Cipro] 500 mg PO Q12HR 07/05/20 07/05/20 History Nystatin 100,000 Unit/gm Oint 1 applic TOPICAL BID 07/05/20 07/05/20 History [Mycostatin Oint] Allergies Allergy/AdvReac Type Severity Reaction Status Date / Time No Known Allergies Allergy Verified 07/05/20 14:33 Surgical - Exam - General well developed, well nourished, no distress - Respiratory normal expansion, normal respiratory effort - Abdomen Abdomen: soft, non tender Assessment and Plan Assessment: 74 yo female with hx of 1.7 cm left sided ureteral stone -OR for left sided ureteroscopy with holmium laser lithotripsy, stone basketting and stent placement
[~2020-07-08 07:26] MED LIST: DEXAMETHASONE SOD PHOSPHATE 4 MG/ML 1 ML VIAL IV ONE; HYDROmorphone 0.5 MG/0.5 ML SYRINGE IVP PRN; LACTATED RINGERS 1,000 ML IV SCH; ONDANSETRON 4 MG/2 ML VIAL IVP ONE
[2020-07-08 08:13] LABS: Glucose,Whole Blood 121 mg/dL (75-99)
[2020-07-08] MEDS ORDERED: LACTATED RINGERS 1,000 ML IV ONE (08:16)
--- NOTE | 2020-07-08 08:17 | XR ---
EXAMINATION TYPE: XR KUB DATE OF EXAM: 07/08/2020 COMPARISON: None HISTORY: Kidney stone TECHNIQUE: AP supine abdomen FINDINGS: There is a 2.1 x 1.5 cm calcification in the region of the left renal pelvis. There is a 1. 8 x 0.9 cm calcification at the inferior pole left kidney Psoas margins are normal. Normal bowel gas is present. IMPRESSION: 1. Large calcifications in the region of the left kidney.
[2020-07-08] MEDS ORDERED: GLYCOPYRROLATE 0.2 MG/ML 2 ML VIAL ONE (11:30)
[2020-07-08] MEDS ORDERED: ROCURONIUM 10 MG/ML (5 ML VIAL) IV ONE (11:30)
[2020-07-08] MEDS ORDERED: SUCCINYLCHOLINE CHLORIDE 100 MG/5 ML SYR IV ONE (11:30)
[2020-07-08] MEDS ORDERED: PROPOFOL 10 MG/ML 20 ML VIAL IV ONE (11:30)
[2020-07-08] MEDS ORDERED: fentaNYL (PF) 50 MCG/ML 2 ML AMP ONE (11:30)
[2020-07-08] MEDS ORDERED: LIDOCAINE 1% INJ 10MG/ML (20 ML MDV) ONE (11:30)
[2020-07-08] MEDS ORDERED: NEOSTIGMINE 1 MG/ML 10 ML VIAL ONE (11:30)
[2020-07-08] MEDS ORDERED: ePHEDrine SULFATE/0.9% NACL/PF 50 MG/5 ML SYRINGE IV ONE (11:30)
[2020-07-08] MEDS ORDERED: IOPAMIDOL-370 50ML BTL MISCELLANE ONE (11:33)
--- NOTE | 2020-07-08 13:14 | P.OP ---
Date of Procedure: 07/08/20 Preoperative Diagnosis: Left-sided ureteral stone Postoperative Diagnosis: Same Procedure(s) Performed: Cystoscopy, left ureteroscopy, holmium laser lithotripsy, stone basketing and stent placement Implants: 6-Guamanian by 22 cm stent Anesthesia: KEON Surgeon: Khris Melendez Estimated Blood Loss (ml): 5 Pathology: other (Left ureteral stone, left renal urine culture) Condition: stable Disposition: PACU Indications for Procedure: right-sided ureteroscopy, with holmium laser lithotripsy, stone basketing and stent placement Operative Findings: Stone completely impacted in the left UPJ, holmium laser lithotripsy was performed to allow for wire passage into the kidney Description of Procedure: Patient was brought to the operating room, general anesthesia was induced. She was prepped and draped in sterile fashion a placemed in dorsal lithotomy position. A cystoscopy fitted with the 21-Guamanian sheath was inserted per urethra, cystoscopy was performed which showed no abnormality within the bladder . Attention was then carried to the left ureteral orifice which was intubated with a open-ended catheter, retrograde pyelogram was performed which showed minimal contrast past the radiopaque stone in the UPJ. At this time a wire was advanced through the catheter but resistance was met at stone. Multiple attempts was made to navigate the wire past stone but was unsuccessful. At this time 1113-Guamanian access sheath was passed over the wire under fluoroscopy and distal to the stone. A flexible ureteroscope was advanced through the access sheath, the stone was visualized and was completely impacted attempted to place a wire past the stone was unsuccessful. At this time using the holmium laser the stone was carefully fragmented, some of the fragments were removed using the stone basket. Fragmenting was continued until a lumen could be visualized. Once the lumen was visualized, I was able to advance the scope into the renal pelvis. At this time urine within the renal pelvis appeared to be cloudy, aspirate was obtained and sent for culture. Given the this finding of cloudy urine within the renal pelvis the decision was made to stop further fragmenting the stone given the concern of infected urine in the kidney. At this time a wire was advanced through the ureteroscope and the ureteroscope was withdrawn with the wire in place. Pullback ureteroscopy was performed showed no injury to the ureter. At this time ureteral stent was passed over the wire, the proximal curl was visualized on fluoroscopy and the distal curl was visualized using the cystoscope. The bladder was emptied at the end of the case. The patient tolerated the procedure well was taken to PACU in stable condition. At this time she will be set up for a second stage ureteroscopy to clear her residual st one
[2020-07-08 13:31] LABS: Glucose,Whole Blood 172 mg/dL (75-99)
[2020-07-08 13:35] VITALS: TEMP 97
--- NOTE | 2020-07-08 13:58 | FL ---
Fluoroscopy INDICATION: Pain FINDINGS: Fluoroscopy time: Not available seconds. Images obtained: 4. IMPRESSIONS: 1. Documentation of fluoroscopy.
[2020-07-08 14:30] VITALS: BP 145/71
[2020-07-08 14:31] VITALS: PULSE 55; RESP 20
== END 2020-07-08 14:55 | disposition home or self-care (01) ==
LOC: OR 07:26
PROVIDERS: ATTEND Urology
DX: N20.1 Calculus of ureter (principal); F03.90 Unspecified dementia, unspecified severity, without behavioral disturbance, psychotic disturbance, mood disturbance, and anxiety; D86.9 Sarcoidosis, unspecified; F32.9 Major depressive disorder, single episode, unspecified; I25.10 Atherosclerotic heart disease of native coronary artery without angina pectoris; I12.9 Hypertensive chronic kidney disease with stage 1 through stage 4 chronic kidney disease, or unspecified chronic kidney disease; E11.22 Type 2 diabetes mellitus with diabetic chronic kidney disease; Z87.442 Personal history of urinary calculi; Z87.09 Personal history of other diseases of the respiratory system; Z90.49 Acquired absence of other specified parts of digestive tract; N18.9 Chronic kidney disease, unspecified; Z79.82 Long term (current) use of aspirin; Z79.899 Other long term (current) drug therapy; Z79.02 Long term (current) use of antithrombotics/antiplatelets; Z79.84 Long term (current) use of oral hypoglycemic drugs; Z97.2 Presence of dental prosthetic device (complete) (partial)
CPT/HCPCS: 82365; 87070; 87205; 87075; 87077; 87186; 74420; 74018; 52356; C2625; C1758; C1769; J1100; J2710; J0690; J2405; J2001; J3010; J0330; J2704; Q9967

== ENCOUNTER → 2020-08-13 | Day surgery (SDC) | payer MEDICARE, OTHER ==
[2020-08-11 09:22] VITALS: BMI 39.4
[~2020-08-13] MED LIST changes: +GENTAMICIN 90 MG in SODIUM CHLORIDE 0.9% 100 ML IVPB PRN; +LIDOCAINE 1% INJ 10MG/ML (20 ML MDV) ONE; +MIDAZOLAM 2 MG/2 ML VIAL IV PRN; +PROPOFOL 10 MG/ML 20 ML VIAL IV ONE; +SUCCINYLCHOLINE CHLORIDE 100 MG/5 ML SYR IV ONE; +fentaNYL (PF) 50 MCG/ML 2 ML AMP ONE
--- NOTE | 2020-08-13 11:02 | XR ---
EXAMINATION TYPE: XR KUB DATE OF EXAM: 08/13/2020 10:43 AM CLINICAL HISTORY: Kidney stones TECHNIQUE: Supine images of the abdomen and pelvis were obtained COMPARISON: 07/08/2020. FINDINGS: There is a left-sided ureteral stent proximally coiled over the region of the renal pelvis and distal ly over the expected urinary bladder. There is a 17 x 15 mm calculus over the renal pelvis/proximal c oil. The stone previously measured 15 x 21 mm on 07/08/2020, and is decreased in size versus rotated in position. There are 2 adjacent versus staghorn calculi over the lower pole of the left kidney measur ing up to 14 mm and 9 mm. Single versus overlapping calcification over the lower pole on 07/08/2020 com parison previously spanned 9 x 18 mm. Appearance of pelvic phleboliths appear similar. There is a calcification left lateral aspect of L4 o verlying the ureteral stent, which was seen on 07/08/2020 comparison and 03/03/2020 CT comparison and d emonstrated to be vascular in etiology, not related to ureteral calculus. Nonspecific bowel gas pattern. Degenerative changes and levocurvature of the lumbar spine. Degenerati ve changes of the sacroiliac joints and bilateral hips. IMPRESSION: 1. Left ureteral stent with appropriate radiographic appearance. 2. 15 x 17 mm calculus overlies the renal pelvis/proximal ureteral stent coil. 3. 2 adjacent versus staghorn calculi over the left renal lower pole measure 14 and 9 mm.
[2020-08-13 11:23] LABS: Glucose,Whole Blood 110 mg/dL (75-99)
--- NOTE | 2020-08-13 11:33 | P.HPIHPCON ---
History of Present Illness H&P Date: 08/13/20 Chief Complaint: left ureteral stone This is 74 old female with history of a 1.7 cm left UPJ stone, and multiple nonobstructive renal calculi. She underwent staged 1 left-sided ureteroscopy, holmium laser lithotripsy and stent placement on July 08, she presents today for second stage ureteroscopy. Stone has been present since February 2020. . Discussed that the lower pole stone are unlikely to be addressed during ureteroscopy given the location. She and her son understood all risks and agreed to proceed with left sided ureteroscopy with holmium laser and stone basketting and stent placement. Of note she is currently on IV antibiotic Consent for Procedure: I have explained the operation/procedure to the patient, including the risks, benefits, side effects, alternative therapies (including not receiving the proposed treatment or service), the likelihood of the patient achieving his/her goals, and potential recuperation problems for the procedure/sedation/analgesia, as well as any blood products, if indicated. I also explained to the patient the risks, benefits and side effects of the alternatives, as well as the risks related to not receiving the proposed procedure, care, treatment, or services. Past Medical History Past Medical History: Dementia, Diabetes Mellitus, Respiratory Disorder Additional Past Medical History / Comment(s): sarcoidosis History of Any Multi-Drug Resistant Organisms: ESBL, MRSA Date of last positivie culture/infection: 07/08/20 ESBL Klebsiella; 12/17/08 MRSA MDRO Source:: ESBL-Urine aspirated-renal pelvis; MRSA-unkonwn Past Surgical History: Cholecystectomy Past Anesthesia/Blood Transfusion Reactions: No Reported Reaction Smoking Status: Never smoker Medications and Allergies Home Medications Medication Instructions Recorded Confirmed Type Aspirin EC [Ecotrin Low Dose] 81 mg PO DAILY 04/23/20 08/12/20 History Atorvastatin [Lipitor] 20 mg PO HS 04/23/20 08/12/20 History Clopidogrel Bisulfate [Plavix] 75 mg PO DAILY 04/23/20 08/13/20 History sitaGLIPtin PHOSPHATE [Januvia] 100 mg PO DAILY 04/23/20 08/13/20 History Gabapentin [Neurontin] 100 mg PO TID #14 cap 04/26/20 08/13/20 Rx Acetaminophen [Tylenol] 650 mg PO Q6H PRN 07/05/20 08/12/20 History Nystatin 100,000 Unit/gm Oint 1 applic TOPICAL BID 07/05/20 08/12/20 History [Mycostatin Oint] Acetaminophen Tab [Tylenol Tab] 500 mg PO Q8H PRN 08/12/20 08/12/20 History Cholecalciferol [Vitamin D3 (25 25 mcg PO DAILY 08/12/20 08/13/20 History Mcg = 1000 Iu)] Ertapenem [INVanz] 1 gm IVPB Q24H 08/12/20 08/13/20 History Allergies Allergy/AdvReac Type Severity Reaction Status Date / Time No Known Allergies Allergy Verified 08/13/20 11:10 Surgical - Exam Vital Signs Temp Pulse Resp BP Pulse Ox 97.4 F L 60 16 146/66 99 08/13/20 11:13 08/13/20 11:13 08/13/20 11:13 08/13/20 11:13 08/13/20 11:13 - General well developed, well nourished, no distress, no pain - Eyes PERRL, normal ocular movement - Respiratory normal expansion, normal respiratory effort Results - Labs Abnormal Lab Results - Last 24 Hours (Table) 08/13/20 Range/Units 11:21 POC Glucose (mg/dL) 110 H (75-99) mg/dL Assessment and Plan Assessment: OR for left-sided ureteroscopy, holmium laser lithotripsy, stone basketing, stent removal versus exchange
--- NOTE | 2020-08-13 13:54 | FL ---
Fluoroscopy INDICATION: Pain FINDINGS: Fluoroscopy time: 11 seconds. Images obtained: 1. IMPRESSIONS: 1. Documentation of fluoroscopy.
--- NOTE | 2020-08-13 13:54 | P.OP ---
Date of Procedure: 08/13/20 Preoperative Diagnosis: Left ureteral, renal stones Postoperative Diagnosis: Same Procedure(s) Performed: Cystoscopy, left ureteroscopy, holmium laser lithotripsy, stone basketing and stent exchange Implants: 6-Haitian by 22 cm stent Anesthesia: KEON Surgeon: Khris Melendez Estimated Blood Loss (ml): 5 Pathology: other (Left ureteral, renal stones) Condition: stable Disposition: PACU Indications for Procedure: This is 74 old female with history of a 1.7 cm left UPJ stone, and multiple nonobstructive renal calculi. She underwent staged 1 left-sided ureteroscopy, holmium laser lithotripsy and stent placement on July 08, she presents today for second stage ureteroscopy. Stone has been present since February 2020. . Discussed that the lower pole stone are unlikely to be addressed during ureteroscopy given the location. She and her son understood all risks and agreed to proceed with left sided ureteroscopy with holmium laser and stone basketting and stent placement. Of note she is currently on IV antibiotic Operative Findings: Large stone in the left UPJ, multiple small stones within the lower pole, sizable stones in the lower pole were removed, the remaining stones were less than 1 mm, but there was more than 100 stones in the lower pole, consistent with urinary stasis stones Description of Procedure: Patient brought to the operating room, general anesthesia was induced. She was prepped and draped in sterile fashion a placed in dorsal lithotomy position. Cystoscopy fitted with a 21-Haitian sheath was inserted per urethra, cystoscopy was performed which showed no abnormality within the bladder. Stent was grasped using a stent grasper, and removed to the meatus. Next the sensor wire was advanced through the stent and the stent was removed with the wire in place. Next a 1214 Haitian access sheath was passed over the wire under fluoroscopy to the proximal ureter. Next a flexible ureteroscope was inserted through the access sheath, a large stone was encountered in the UPJ, the stone was dusted using the holmium laser, sizable fragments were removed using the stone basket. Renoscopy also showed multiple stones within the lower pole, of note there was a greater than 100 stones in the lower pole, the majority were less than 1 mm in size. The sizable once were removed using the stone basket. Repeat renoscopy showed no sizable stone or injury to the kidney, but of note there was more than 100 small stones within the lower pole, all consistent with urinary stasis stones, and all measured less than 1 mm in size. Pullback ureteroscopy was performed which showed no injury to the ureter. As the ureteroscope was withdrawn and a wire was advanced through. Next a ureteral stent was passed over the wire, the proximal curl was visualized on fluoroscopy and distal curl was visualized and cystoscope. The bladder was emptied and of the case. The patient tolerated the procedure well was taken to PACU in stable condition
[2020-08-13 13:57] VITALS: TEMP 97
[2020-08-13 14:33] VITALS: RESP 17
[2020-08-13 14:41] LABS: Glucose,Whole Blood 150 mg/dL (75-99)
[2020-08-13 15:10] VITALS: BP 177/70; PULSE 74
== END | disposition home or self-care (01) ==
LOC: OR 10:08
PROVIDERS: ATTEND Urology
DX: N20.2 Calculus of kidney with calculus of ureter (principal); E11.9 Type 2 diabetes mellitus without complications; F03.90 Unspecified dementia, unspecified severity, without behavioral disturbance, psychotic disturbance, mood disturbance, and anxiety; J98.9 Respiratory disorder, unspecified; Z86.14 Personal history of Methicillin resistant Staphylococcus aureus infection; Z86.19 Personal history of other infectious and parasitic diseases; Z90.49 Acquired absence of other specified parts of digestive tract; D86.9 Sarcoidosis, unspecified; F32.9 Major depressive disorder, single episode, unspecified; Z79.84 Long term (current) use of oral hypoglycemic drugs; Z79.02 Long term (current) use of antithrombotics/antiplatelets; Z79.82 Long term (current) use of aspirin; Z79.899 Other long term (current) drug therapy
CPT/HCPCS: 52356; 82365; 74018; C2625; C1894; C1769; J1100; J2405; J2001; J3010; J1580; J0330; J2704; 76000

== ENCOUNTER → 2020-08-16 | Outpatient (CLI) | payer MEDICARE, OTHER ==
--- NOTE | 2020-08-16 09:36 | BD ---
EXAMINATION TYPE: Axial Bone Density DATE OF EXAM: 08/16/2020 COMPARISON: 11/14/2010 CLINICAL HISTORY: Height: 58 IN Weight: 191 LBS FRAX RISK QUESTIONS: Secondary Osteoporosis: 3. Menopause before 45: AGE 38 RISK FACTORS HISTORY OF: Active: LIMITED Postmenopausal woman: AGE 38 MEDICATIONS: Additional Medications: ASPIRIN, ATORVASTATIN, CHOLECALCIFEROL, CLOPIDOGREL, ERTAPENEM, GABAPENTIN, N YSTATIN, PHENAZOPYRIDINE, SITAGLIPTIN, TAMSULOSIN, TYLENOL EXTRA STRENGTH, EXAM MEASUREMENTS: Bone mineral densitometry was performed using the [employer] System. Bone mineral density as measured about the Lumbar spine is: ----- L1-L4(G/cm2): 1.153 T Score Values are as follows: ----- L2: -0.8 ----- L3: 0.5 ----- L4: -0.2 ----- L1-L4: -0.2 Bone mineral density has: Decreased -2.7% since study of: 11/14/2010 Bone mineral density about the R hip (g/cm2): 0.724 Bone mineral density about the L hip (g/cm2): 0.811 T Score values are as follows: -----R Neck: -2.3 -----L Neck: -1.6 -----R Total: -1.6 -----L Total: -1.9 Bone mineral density has: Decreased -16.0% since study of: 11/14/2010 IMPRESSION: Osteopenia (T Score between -2.5 and -1). There is slightly increased risk of fracture and the patient may be considered for treatment. Re-Screen 2-5 years. NOTE: T-SCORE=SD OF THE YOUNG ADULT MEAN.
== END | disposition home or self-care (01) ==
LOC: RADBDWWP 08:31
PROVIDERS: ATTEND Internal Medicine
DX: M85.80 Other specified disorders of bone density and structure, unspecified site (principal)
CPT/HCPCS: 77080

== ENCOUNTER → 2020-12-10 | Outpatient (CLI) | payer MEDICARE, OTHER ==
--- NOTE | 2020-12-10 09:30 | US ---
EXAMINATION TYPE: US kidneys/renal and bladder DATE OF EXAM: 12/10/2020 COMPARISON: 06/21/2020 ultrasound, 03/03/2020 CT CLINICAL HISTORY: N20.0 calculus of kidney. hematuria. follow up from prior ultrasound 06/21/20 EXAM MEASUREMENTS: Right Kidney: 11.2 x 5.1 x 4.8 cm Left Kidney: 10.3 x 4.7 x 4.1 cm Right Kidney: lobulated, isoechoic area mid as on prior exam. Possible mass vs. dromedary hump. Findi ng is similar to the 06/21/2020 exam. Left Kidney: lobulation mid/lower pole. mild hydronephrosis Bladder: not fully distended, appears wnl Bilateral Jets seen: no IMPRESSION: Persistent fullness of the right renal cortex without interval growth. Consider repeat CT examination .
== END | disposition home or self-care (01) ==
LOC: RADUSWWP 08:00
PROVIDERS: ATTEND Urology
DX: N28.89 Other specified disorders of kidney and ureter (principal)
CPT/HCPCS: 76770

== ENCOUNTER → 2021-04-06 | Outpatient (CLI) | payer MEDICARE, OTHER ==
--- NOTE | 2021-04-06 09:46 | CT ---
EXAMINATION TYPE: CT abdomen pelvis wo con DATE OF EXAM: 04/06/2021 COMPARISON: 03/03/2020 HISTORY: Unspecified hydronephrosis CT DLP: 1317.3 mGycm Examination of the solid and hollow viscera is limited given the lack of contrast. FINDINGS: LUNG BASES: No evidence for nodule. No evidence for infiltrate. LIVER/GB: The gallbladder is unremarkable. No space-occupying hepatic lesion. PANCREAS: No pancreatic mass identified. No inflammatory process seen. SPLEEN: No evidence for splenomegaly. No intrasplenic lesions seen. ADRENALS: No adrenal nodules identified. No evidence for thickening. KIDNEYS: There is much improved left-sided hydronephrosis with only mild fullness currently noted of the left renal pelvis. There is a calculus noted in the region of the left UPJ which measures 7.4 mm versus 1.7 cm previously. Nonobstructing calculi lower pole left kidney measure up to 5 mm. Nonobstru cting calculus mid pole right kidney is likely 4 mm. BOWEL: Appendix has a normal appearance. No evidence of bowel obstruction. No inflammatory process. Lymph nodes: No evidence for adenopathy greater than 1 cm. Abdominal aorta: Atheromatous changes seen. No evidence for aneurysm. Genital organs: No significant abnormality. Other: There is a fat-containing umbilical hernia. Degenerative changes lumbar spine. IMPRESSION: There is much improved left-sided hydronephrosis with only mild fullness currently noted of the left renal pelvis. There is a calculus noted in the region of the left UPJ which measures 7.4 mm versus 1. 7 cm previously.
== END | disposition home or self-care (01) ==
LOC: RADCTMAIN 09:12
PROVIDERS: ATTEND Urology
DX: N13.2 Hydronephrosis with renal and ureteral calculous obstruction (principal)
CPT/HCPCS: 74176

== ENCOUNTER 2021-05-13 09:25 | Day surgery (SDC) | payer MEDICARE, OTHER ==
[2021-05-11 11:48] VITALS: BMI 42.0
--- NOTE | 2021-05-12 09:49 | P.HPIHPCON ---
History of Present Illness H&P Date: 05/12/21 This is a 75-year-old female with a history of a left-sided UPJ stone, causing minimal hydronephrosis. Review of images it appeared to be multiple small fragments within the left proximal ureter. She underwent stent placement on April 25. Discussed given the persistent Guinda the option of left-sided ureteroscopy. Discussed the risk of surgery which includes but not limited to bleeding, infection, injury to the ureter. Discussed also risk from anesthesia. This was discussed with the patient and her son. They understood all the risk and agreed to proceed. The patient's urine culture showed ESBL, she is currently on ertapenem Consent for Procedure: I have explained the operation/procedure to the patient, including the risks, benefits, side effects, alternative therapies (including not receiving the proposed treatment or service), the likelihood of the patient achieving his/her goals, and potential recuperation problems for the procedure/sedation/analgesia, as well as any blood products, if indicated. I also explained to the patient the risks, benefits and side effects of the alternatives, as well as the risks related to not receiving the proposed procedure, care, treatment, or services. Past Medical History Past Medical History: Dementia, Diabetes Mellitus, Hyperlipidemia, Hypertension, Respiratory Disorder Additional Past Medical History / Comment(s): Sarcoidosis, hx of and current kidney stones, chronic UTI's, bladder and bowel incontinence. History of Any Multi-Drug Resistant Organisms: ESBL, MRSA Date of last positivie culture/infection: 04/25/21 ESBL Klebsiella; 12/17/08 MRSA MDRO Source:: ESBL-Urine aspirated-renal pelvis; MRSA-unkonwn Past Surgical History: Cholecystectomy Additional Past Surgical History / Comment(s): Surgery for kidney stones. Past Anesthesia/Blood Transfusion Reactions: No Reported Reaction Past Psychological History: Depression Additional Psychological History / Comment(s): DEMENTIA. Smoking Status: Former smoker Past Alcohol Use History: None Reported Additional Past Alcohol Use History / Comment(s): Quit smoking in the s. Past Drug Use History: None Reported - Past Family History Mother Family Medical History: No Reported History Medications and Allergies Home Medications Medication Instructions Recorded Confirmed Type Atorvastatin [Lipitor] 20 mg PO HS 04/23/20 05/11/21 History Clopidogrel Bisulfate [Plavix] 75 mg PO DAILY 04/23/20 05/11/21 History sitaGLIPtin PHOSPHATE [Januvia] 100 mg PO DAILY 04/23/20 05/11/21 History Gabapentin [Neurontin] 100 mg PO TID #14 cap 04/26/20 05/11/21 Rx Acetaminophen [Tylenol] 650 mg PO Q6H PRN 07/05/20 05/11/21 History Cholecalciferol [Vitamin D3 (25 50 mcg PO DAILY 08/12/20 05/11/21 History Mcg = 1000 Iu)] Tamsulosin [Flomax] 0.4 mg PO DAILY #10 cap 08/13/20 05/11/21 Rx Acetaminophen [Tylenol Extra 500 mg PO Q8H PRN 05/11/21 05/11/21 History Strength] Aspirin 81 mg PO HS 05/11/21 05/11/21 History Allergies Allergy/AdvReac Type Severity Reaction Status Date / Time No Known Allergies Allergy Verified 04/25/21 13:00 Surgical - Exam - General no distress - Eyes normal ocular movement - ENT normal nares, normal mucosa - Respiratory normal expansion, normal respiratory effort - Abdomen Abdomen: soft, non tender - Psychiatric oriented to time, oriented to person Assessment and Plan Assessment: OR For left-sided ureteroscopy, holmium laser lithotripsy, stone basketing and stent removal
[~2021-05-13 09:25] MED LIST changes: +ERTAPENEM 1 GM in SODIUM CHLORIDE 0.9% 50 ML IVPB ONE; -GENTAMICIN 90 MG in SODIUM CHLORIDE 0.9% 100 ML IVPB PRN; -HYDROmorphone 0.5 MG/0.5 ML SYRINGE IVP PRN; +HYDROmorphone 1 MG/ML 1 ML SYRINGE IVP PRN; -LIDOCAINE 1% INJ 10MG/ML (20 ML MDV) ONE; -PROPOFOL 10 MG/ML 20 ML VIAL IV ONE; -SUCCINYLCHOLINE CHLORIDE 100 MG/5 ML SYR IV ONE; -fentaNYL (PF) 50 MCG/ML 2 ML AMP ONE
--- NOTE | 2021-05-13 10:11 | XR ---
EXAMINATION TYPE: XR KUB DATE OF EXAM: 05/13/2021 HISTORY: Pain Comparison: None.Single KUB is submitted for interpretation. Findings: Right renal calculi: Stable 7.5 mm calculus mid pole right kidney. Right ureteral calculi: None Visualized. Left renal calculi: Stable calculi overlying the lower pole of the left kidney. Left ureteral calculi: Left ureteral stent is noted to be in place. No definite calculus along the c ourse of the stent. Several phleboliths are seen distally within the pelvis. Pelvic calcifications: Probable phleboliths noted. Bowel gas pattern is unremarkable. No free air. No mass effects. IMPRESSION: 1. Stable appearing bilateral nephrolithiasis. 2. Left ureteral stent.
[2021-05-13] MEDS ORDERED: LIDOCAINE 1% (10MG/ML) FOR IV START INTRADERMA ONE (10:25)
[2021-05-13 10:32] LABS: Glucose,Whole Blood 92 mg/dL (75-99)
[2021-05-13 10:34] VITALS: RESP 16
[2021-05-13] MEDS ORDERED: SUCCINYLCHOLINE CHLORIDE 100 MG/5 ML SYR IV ONE (10:55)
[2021-05-13] MEDS ORDERED: ROCURONIUM 10 MG/ML (5 ML VIAL) IV ONE (10:55)
[2021-05-13] MEDS ORDERED: NEOSTIGMINE 1 MG/ML 10 ML VIAL ONE (10:55)
[2021-05-13] MEDS ORDERED: LIDOCAINE 1% INJ 10MG/ML (20 ML MDV) ONE (10:55)
[2021-05-13] MEDS ORDERED: fentaNYL (PF) 50 MCG/ML 2 ML AMP ONE (10:55)
[2021-05-13] MEDS ORDERED: GLYCOPYRROLATE 0.2 MG/ML 2 ML VIAL ONE (10:55)
[2021-05-13] MEDS ORDERED: PROPOFOL 10 MG/ML 20 ML VIAL IV ONE (10:55)
--- NOTE | 2021-05-13 12:06 | FL ---
Fluoroscopy History: CYSTO LITHO LEFT SIDE LEFT SIDE RENAL CALCULI. DR. HUNT SMASHED STONES WITH LASER AND REMOVED WITH BASKET. FL TIME OF 2 S ECS
[2021-05-13 12:09] VITALS: TEMP 96.8
--- NOTE | 2021-05-13 12:14 | P.OP ---
Date of Procedure: 05/13/21 Preoperative Diagnosis: Left ureteral stones Postoperative Diagnosis: Left renal stones Procedure(s) Performed: Cystoscopy, left ureteroscopy, holmium laser lithotripsy, stone basketing and stent removal Implants: None Anesthesia: FLORIANA Surgeon: Khris Melendez Estimated Blood Loss (ml): 1 Pathology: other (left renal stone) Condition: stable Disposition: PACU Indications for Procedure: This is a 75-year-old female with a history of a left-sided UPJ stone, causing minimal hydronephrosis. Review of images it appeared to be multiple small fragments within the left proximal ureter. She underwent stent placement on April 25. Discussed given the persistent Kellogg the option of left-sided ureteroscopy. Discussed the risk of surgery which includes but not limited to bleeding, infection, injury to the ureter. Discussed also risk from anesthesia. This was discussed with the patient and her son. They understood all the risk and agreed to proceed. The patient's urine culture showed ESBL, she is currently on ertapenem Operative Findings: Multiple stones within the left lower pole Description of Procedure: Patient was brought to the operating room, general anesthesia was induced. She was prepped and draped so fashion a placement dorsal lithotomy position. Cystoscopy fitted with a 21-Armenian sheath was inserted per urethra, cystoscopy was performed which showed no abnormality within the bladder. Attention was then carried to the ureteral stent, the stent was grasped and removed to the meatus. Next a sensor wire was advanced through the stent the stent was removed with the wire in place. Next a 11-13 Fr ureteral access sheath was passed over the wire and into the proximal ureter under fluoroscopy. Next a flexible ureteroscope was inserted through the access sheath, renoscopy was performed showed multiple stones within the lower pole. Using the holmium laser the stones were fragmented, sizable fragments were removed using the stone basket. Repeat renoscopy showed no sizable stones within the kidney. Pullback ureteroscopy was performed showed no injury to ureter and ureteral fragments. The bladder was emptied at the end of the case. Patient tolerated procedure wel l was taken to recovery in stable condition
[2021-05-13 12:20] LABS: Glucose,Whole Blood 129 mg/dL (75-99)
[2021-05-13 14:57] VITALS: BP 139/80; PULSE 61
== END 2021-05-13 14:48 ==
LOC: OR 09:25
PROVIDERS: ATTEND Urology
DX: N20.1 Calculus of ureter (principal)
CPT/HCPCS: 52356; 82365; 74018; C1769; J1100; J2710; J2405; J2001; J3010; J0330; J2704

== ENCOUNTER → 2021-06-23 | Outpatient (CLI) | payer MEDICARE, OTHER ==
--- NOTE | 2021-06-28 11:36 | MM ---
Reason for exam: clinical finding. Last mammogram was performed 10 years and 5 months ago. History: Patient is postmenopausal. Benign left mammotome panel of the left breast, May 30, 2011. Indicated problem(s): pain in the left breast. Physical Findings: A clinical breast exam by your physician is recommended on an annual basis and results should be correlated with mammographic findings. MG 3D Diag Mammo W/Cad ELSI Bilateral CC and MLO view(s) were taken. Technologist: RT Corina (R)(M) Prior study comparison: January 24, 2011, [facility] DIGITAL BILATERAL MAMMOGRAM w/CAD. November 14, 2010, bilateral digital screening mammo w/CAD. There are scattered fibroglandular densities. Stable benign calcifications. There is no discrete abnormality. No significant changes when compared with prior studies. ASSESSMENT: Benign, BI-RAD 2 RECOMMENDATION: Routine screening mammogram of both breasts in 1 year. Manage patient on a clinical basis.
== END | disposition home or self-care (01) ==
LOC: RADMAMWWP 14:31
DX: N64.89 Other specified disorders of breast (principal); R92.1 Mammographic calcification found on diagnostic imaging of breast; Z78.0 Asymptomatic menopausal state
CPT/HCPCS: 77066; G0279; 77062

== ENCOUNTER 2021-12-06 08:50 | Emergency (ER) | payer MEDICARE, OTHER ==
[2021-12-06 08:58] VITALS: RESP 18; TEMP 97.6
[2021-12-06 09:39] LABS: Basophils % (A) 0 %; Eosinophils % (A) 0 %; HCT 43.4 % (34.0-46.0); HGB 13.6 gm/dL (11.4-16.0); Lymphocytes # (A) 1.3 k/uL (1.0-4.8); Lymphocytes % (A) 20 %; MCH 30.1 pg (25.0-35.0); MCHC 31.4 g/dL (31.0-37.0); Mean Platelet Volume 7.4; Monocytes # (A) 0.5 k/uL (0-1.0); Monocytes % (A) 7 %; Neutrophils # (A) 4.4 k/uL (1.3-7.7); Neutrophils % (A) 70 %; Platelet Count 190 k/uL (150-450); RBC 4.52 m/uL (3.80-5.40); RDW 13.5 % (11.5-15.5); WBC 6.3 k/uL (3.8-10.6)
[2021-12-06 10:11] LABS: ALT 19 U/L (4-34); AST 24 U/L (14-36); African American GFR (CKD) 69 (>60 ml/min/1.73 sqM); Alcohol <10 mg/dL; Alkaline Phosphatase 114 U/L (38-126); Anion Gap 12 mmol/L; Blood Urea Nitrogen 18 mg/dL (7-17); Calcium 9.5 mg/dL (8.4-10.2); Carbon Dioxide 24 mmol/L (22-30); Chloride 106 mmol/L (98-107); Glucose 139 mg/dL (74-99); Non-African American GFR(CKD) 60 (>60 ml/min/1.73 sqM); Potassium 3.6 mmol/L (3.5-5.1); Sodium 142 mmol/L (137-145); Total Bilirubin 0.4 mg/dL (0.2-1.3); Total Protein 7.1 g/dL (6.3-8.2)
--- NOTE | 2021-12-06 10:48 | ED ---
Psych HPI - General Chief Complaint: Psychiatric Symptoms Stated Complaint: mental health Time Seen by Provider: 12/06/21 09:05 Source: patient, EMS, RN notes reviewed Mode of arrival: EMS Limitations: no limitations - History of Present Illness Initial Comments: This a 76-year-old female presents emergency department for psychiatric evaluation. Patient is [facility] was sent here for increased agitation, depression. Patient reportedly was throwing chairs at staff member. Patient does not provide useful information that she states she is just angry at prior doctor. Patient denies any drug use no alcohol abuse denies being homicidal. Patient does have a history of depression, psychiatric issues. - Related Data Home Medications Medication Instructions Recorded Confirmed Atorvastatin [Lipitor] 20 mg PO HS 04/23/20 12/06/21 Clopidogrel Bisulfate [Plavix] 75 mg PO DAILY 04/23/20 12/06/21 sitaGLIPtin PHOSPHATE [Januvia] 100 mg PO DAILY 04/23/20 12/06/21 Acetaminophen [Tylenol] 650 mg PO Q6H PRN 07/05/20 12/06/21 Cholecalciferol [Vitamin D3 (25 50 mcg PO DAILY 08/12/20 12/06/21 Mcg = 1000 Iu)] Acetaminophen [Tylenol Extra 500 mg PO TID@0700,1300,1900 05/11/21 12/06/21 Strength] Aspirin 81 mg PO HS 05/11/21 12/06/21 Ativan 2mg/Ml 0.5 mg IM Q8H PRN 12/06/21 12/06/21 Gabapentin [Neurontin] 100 mg PO TID@0700,1300,1900 12/06/21 12/06/21 LORazepam [Ativan] 0.5 mg PO Q6H PRN 12/06/21 12/06/21 Previous Rx's Medication Instructions Recorded Tamsulosin [Flomax] 0.4 mg PO DAILY #10 cap 08/13/20 Allergies Allergy/AdvReac Type Severity Reaction Status Date / Time No Known Allergies Allergy Verified 12/06/21 09:26 Review of Systems ROS Statement: Those systems with pertinent positive or pertinent negative responses have been documented in the HPI. ROS Other: All systems not noted in ROS Statement are negative. Past Medical History Past Medical History: Dementia, Diabetes Mellitus, Hyperlipidemia, Hypertension, Respiratory Disorder Additional Past Medical History / Comment(s): Sarcoidosis, hx of and current kidney stones, chronic UTI's, bladder and bowel incontinence. History of Any Multi-Drug Resistant Organisms: ESBL, MRSA Date of last positivie culture/infection: 04/25/21 ESBL Klebsiella; 12/17/08 MRSA MDRO Source:: ESBL-Urine aspirated-renal pelvis; MRSA-unkonwn Past Surgical History: Cholecystectomy Additional Past Surgical History / Comment(s): Surgery for kidney stones. Past Anesthesia/Blood Transfusion Reactions: No Reported Reaction Past Psychological History: Depression Smoking Status: Former smoker Past Alcohol Use History: None Reported Past Drug Use History: None Reported - Past Family History Mother Family Medical History: No Reported History General Exam Limitations: altered mental status General appearance: alert, in no apparent distress Head exam: Present: atraumatic, normocephalic, normal inspection Eye exam: Present: normal appearance, PERRL, EOMI. Absent: scleral icterus, conjunctival injection, periorbital swelling ENT exam: Present: normal exam, normal oropharynx, mucous membranes moist Neck exam: Present: normal inspection, full ROM. Absent: tenderness, meningismus, lymphadenopathy Respiratory exam: Present: normal lung sounds bilaterally. Absent: respiratory distress, wheezes, rales, rhonchi, stridor Cardiovascular Exam: Present: regular rate, normal rhythm, normal heart sounds. Absent: systolic murmur, diastolic murmur, rubs, gallop, clicks GI/Abdominal exam: Present: soft, normal bowel sounds. Absent: distended, tenderness, guarding, rebound, rigid Neurological exam: Present: alert Psychiatric exam: Present: agitated Skin exam: Present: warm, dry, intact, normal color. Absent: rash Course Vital Signs 12/06/21 08:55 Temperature 97.6 F Pulse Rate 91 Respiratory 18 Rate Blood Pressure 146/72 O2 Sat by Pulse 98 Oximetry Medical Decision Making - Medical Decision Making 76-year-old female presented for psychiatric evaluation from [facility] Patient was evaluated by EPS case discussed with psychiatrist on-call who recommends patient be discharged felt this related to dementia. Patient we discharged in stable condition. - Lab Data Result diagrams: 12/06/21 09:24 12/06/21 09:24 Lab Results 12/06/21 12/06/21 Range/Units 09:24 09:24 WBC 6.3 (3.8-10.6) k/uL RBC 4.52 (3.80-5.40) m/uL Hgb 13.6 (11.4-16.0) gm/dL Hct 43.4 (34.0-46.0) % MCV 96.0 (80.0-100.0) fL MCH 30.1 (25.0-35.0) pg MCHC 31.4 (31.0-37.0) g/dL RDW 13.5 (11.5-15.5) % Plt Count 190 (150-450) k/uL MPV 7.4 Neutrophils % 70 % Lymphocytes % 20 % Monocytes % 7 % Eosinophils % 0 % Basophils % 0 % Neutrophils # 4.4 (1.3-7.7) k/uL Lymphocytes # 1.3 (1.0-4.8) k/uL Monocytes # 0.5 (0-1.0) k/uL Eosinophils # 0.0 (0-0.7) k/uL Basophils # 0.0 (0-0.2) k/uL Sodium 142 (137-145) mmol/L Potassium 3.6 (3.5-5.1) mmol/L Chloride 106 (98-107) mmol/L Carbon Dioxide 24 (22-30) mmol/L Anion Gap 12 mmol/L BUN 18 H (7-17) mg/dL Creatinine 0.92 (0.52-1.04) mg/dL Est GFR (CKD-EPI)AfAm 69 (>60 ml/min/1.73 sqM) Est GFR (CKD-EPI)NonAf 60 (>60 ml/min/1.73 sqM) Glucose 139 H (74-99) mg/dL Calcium 9.5 (8.4-10.2) mg/dL Total Bilirubin 0.4 (0.2-1.3) mg/dL AST 24 (14-36) U/L ALT 19 (4-34) U/L Alkaline Phosphatase 114 (38-126) U/L Total Protein 7.1 (6.3-8.2) g/dL Albumin 4.0 (3.5-5.0) g/dL Serum Alcohol <10 mg/dL Disposition Clinical Impression: Dementia Disposition: HOME SELF-CARE Condition: Stable Instructions (If sedation given, give patient instructions): Dementia (ED) Additional Instructions: Please return to the Emergency Department if symptoms worsen or any other concerns. Is patient prescribed a controlled substance at d/c from ED?: No Referrals: Nonstaff,Physician [Primary Care Provider] - 1-2 days Time of Disposition: 14:01
[2021-12-06 14:07] VITALS: BP 149/79; PULSE 78
[2021-12-06 14:07] LABS: Appearance,Urine Clear (Clear); Bacteria,Urine Rare /hpf; Bilirubin,Urine Negative (Negative); Blood,Urine Moderate (Negative); Color,Urine Yellow; Glucose,Urine (UA) Negative (Negative); Hyaline Casts,Urine 1 /lpf (0-2); Ketones,Urine Negative (Negative); Leukocyte Esterase,Urine Small (Negative); Mucus,Urine Rare /hpf; Nitrite,Urine Positive (Negative); Protein,Urine Negative (Negative); RBC,Urine 10 /hpf (0-5); Specific Gravity,Urine 1.015 (1.001-1.035); Squamous Epithelial Cell,Urine 3 /hpf (0-4); Urobilinogen,Urine <2.0 mg/dL (<2.0); WBC,Urine 9 /hpf (0-5)
[2021-12-06 14:11] LABS: Amphetamine Screen,Urine Not Detected (NotDetected); Barbiturate Screen,Urine Not Detected (NotDetected); Benzodiazepines Screen,Urine Detected (NotDetected); Cocaine Screen,Urine Not Detected (NotDetected); Methadone Screen, Urine Not Detected (NotDetected); Opiate Screen,Urine Not Detected (NotDetected); Oxycodone Screen, Urine Not Detected (NotDetected); Phencyclidine Screen,Urine Not Detected (NotDetected); Tricyclic Antidepressant,Urine Not Detected (NotDetected); Urn Cannabinoid Scrn Not Detected (NotDetected)
== END 2021-12-06 16:01 | disposition home or self-care (01) ==
LOC: EC 08:50
DX: F03.90 Unspecified dementia, unspecified severity, without behavioral disturbance, psychotic disturbance, mood disturbance, and anxiety (principal); E11.9 Type 2 diabetes mellitus without complications; E78.5 Hyperlipidemia, unspecified; I10 Essential (primary) hypertension; Z87.891 Personal history of nicotine dependence; Z79.899 Other long term (current) drug therapy; Z79.02 Long term (current) use of antithrombotics/antiplatelets; Z79.84 Long term (current) use of oral hypoglycemic drugs; Z79.82 Long term (current) use of aspirin
CPT/HCPCS: 36415; 80053; 85025; 81001; 80306; 99285; G0480; 80320

== ENCOUNTER 2021-12-28 13:55 | Observation (INO) | payer MEDICARE, OTHER ==
[2021-12-28 14:46] LABS: ALT 23 U/L (4-34); AST 26 U/L (14-36); African American GFR (CKD) 64 (>60 ml/min/1.73 sqM); Alcohol <10 mg/dL; Alkaline Phosphatase 131 U/L (38-126); Anion Gap 12 mmol/L; Blood Urea Nitrogen 23 mg/dL (7-17); Calcium 9.4 mg/dL (8.4-10.2); Carbon Dioxide 25 mmol/L (22-30); Chloride 104 mmol/L (98-107); Glucose 153 mg/dL (74-99); Non-African American GFR(CKD) 55 (>60 ml/min/1.73 sqM); Potassium 4.1 mmol/L (3.5-5.1); Sodium 141 mmol/L (137-145); Total Bilirubin 0.3 mg/dL (0.2-1.3); Total Protein 6.8 g/dL (6.3-8.2)
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
[2021-12-28] MEDS ORDERED: ONDANSETRON 4 MG/2 ML VIAL IM STA (15:10)
[2021-12-28] MEDS ORDERED: ONDANSETRON 4 MG/2 ML VIAL IVP STA (15:21)
[2021-12-28 15:50] LABS: Basophils % (A) 1 %; Eosinophils # (A) 0.1 k/uL (0-0.7); Eosinophils % (A) 2 %; HCT 42.7 % (34.0-46.0); HGB 13.8 gm/dL (11.4-16.0); Lymphocytes # (A) 0.7 k/uL (1.0-4.8); Lymphocytes % (A) 13 %; MCH 31.1 pg (25.0-35.0); MCHC 32.2 g/dL (31.0-37.0); MCV 96.5 fL (80.0-100.0); Mean Platelet Volume 7.3; Monocytes # (A) 0.4 k/uL (0-1.0); Monocytes % (A) 8 %; Neutrophils # (A) 3.9 k/uL (1.3-7.7); Neutrophils % (A) 75 %; Platelet Count 168 k/uL (150-450); RBC 4.42 m/uL (3.80-5.40); WBC 5.3 k/uL (3.8-10.6)
[2021-12-28 16:24] LABS: Appearance,Urine Cloudy (Clear); Bacteria,Urine Occasional /hpf; Bilirubin,Urine Negative (Negative); Blood,Urine Small (Negative); Color,Urine Yellow; Glucose,Urine (UA) Negative (Negative); Ketones,Urine Negative (Negative); Leukocyte Esterase,Urine Large (Negative); Mucus,Urine Rare /hpf; Nitrite,Urine Positive (Negative); Protein,Urine Trace (Negative); RBC,Urine 5 /hpf (0-5); Specific Gravity,Urine 1.019 (1.001-1.035); Squamous Epithelial Cell,Urine <1 /hpf (0-4); Urobilinogen,Urine <2.0 mg/dL (<2.0); WBC,Urine 148 /hpf (0-5)
[2021-12-28] MEDS ORDERED: LORazepam 2 MG/ML INJ IM STA ×2 (16:24→17:36)
[2021-12-28 16:31] LABS: Amphetamine Screen,Urine Not Detected (NotDetected); Barbiturate Screen,Urine Not Detected (NotDetected); Benzodiazepines Screen,Urine Detected (NotDetected); Cocaine Screen,Urine Not Detected (NotDetected); Methadone Screen, Urine Not Detected (NotDetected); Opiate Screen,Urine Not Detected (NotDetected); Oxycodone Screen, Urine Not Detected (NotDetected); Phencyclidine Screen,Urine Not Detected (NotDetected); Tricyclic Antidepressant,Urine Not Detected (NotDetected); Urn Cannabinoid Scrn Not Detected (NotDetected)
[2021-12-28] MEDS ORDERED: cefTRIAXone IN SWFI 1,000 MG/10 ML SYRINGE IVP STA (17:18)
[2021-12-28] MEDS ORDERED: cefTRIAXone 1,000 MG VIAL (IM USE) IM STA (17:23)
[2021-12-28] MEDS ORDERED: ACETAMINOPHEN TAB 325 MG TAB PO PRN (18:19)
[2021-12-28] MEDS ORDERED: HYDROcodone/APAP 5-325MG 1 EACH TAB PO PRN (18:19)
[2021-12-28] MEDS ORDERED: NALOXONE 0.4 MG/ML 1 ML VIAL IV PRN (18:19)
[2021-12-28] MEDS ORDERED: ONDANSETRON 4 MG/2 ML VIAL IM PRN (18:20)
[2021-12-28] MEDS ORDERED: LORazepam 0.5 MG TAB PO PRN (18:21)
[2021-12-28] MEDS: ATORVASTATIN 20 MG TAB PO SCH (20:21)
[2021-12-28] MEDS: GABAPENTIN 100 MG CAP PO SCH (20:21)
[2021-12-28] MEDS: ASPIRIN 81 MG PO SCH (20:21)
[2021-12-28] MEDS ORDERED: QUEtiapine 25 MG TAB PO STA (20:28)
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
[2021-12-29 07:27] LABS: Glucose,Whole Blood 116 mg/dL (70-110)
[2021-12-29] MEDS: INSULIN ASPART (NovoLOG) 100 UNIT/ML VIAL SQ SCH ×4 (08:42→20:29)
[2021-12-29] MEDS: SODIUM CHLORIDE 0.9% 1,000 ML IV SCH ×2 (08:48→19:55)
[2021-12-29] MEDS: HEPARIN SODIUM,PORCINE/PF 5,000 UNIT/0.5 ML SYRINGE SQ SCH ×3 (08:51→23:17)
[2021-12-29] MEDS: CHOLECALCIFEROL 25 MCG (1000 IU) TABLET PO SCH (08:51)
[2021-12-29] MEDS: GABAPENTIN 100 MG CAP PO SCH ×3 (08:51→19:55)
[2021-12-29] MEDS: TAMSULOSIN 0.4 MG CAP.ER.24H PO SCH (08:51)
[2021-12-29] MEDS: CLOPIDOGREL 75 MG TAB PO SCH (08:51)
[2021-12-29 11:17] LABS: Glucose,Whole Blood 151 mg/dL (70-110)
[2021-12-29] MEDS: OLANZapine 2.5 MG TAB PO SCH (11:40)
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
[2021-12-29 17:41] LABS: Glucose,Whole Blood 110 mg/dL (70-110)
[2021-12-29] MEDS: ATORVASTATIN 20 MG TAB PO SCH (19:55)
[2021-12-29] MEDS: ASPIRIN 81 MG PO SCH (19:55)
[2021-12-29 20:23] LABS: Glucose,Whole Blood 160 mg/dL (70-110)
[2021-12-30 07:04] LABS: Glucose,Whole Blood 115 mg/dL (70-110)
[2021-12-30] MEDS: GABAPENTIN 100 MG CAP PO SCH ×3 (07:44→20:08)
[2021-12-30] MEDS: OLANZapine 2.5 MG TAB PO SCH (07:44)
[2021-12-30] MEDS: CHOLECALCIFEROL 25 MCG (1000 IU) TABLET PO SCH (07:44)
[2021-12-30] MEDS: CLOPIDOGREL 75 MG TAB PO SCH (07:44)
[2021-12-30] MEDS: TAMSULOSIN 0.4 MG CAP.ER.24H PO SCH (07:44)
[2021-12-30] MEDS: HEPARIN SODIUM,PORCINE/PF 5,000 UNIT/0.5 ML SYRINGE SQ SCH ×3 (07:44→22:52)
[2021-12-30] MEDS: INSULIN ASPART (NovoLOG) 100 UNIT/ML VIAL SQ SCH ×4 (07:45→20:14)
[2021-12-30 11:06] LABS: Glucose,Whole Blood 168 mg/dL (70-110)
[2021-12-30] MEDS: SODIUM CHLORIDE 0.9% 1,000 ML IV SCH ×2 (12:53→22:52)
[2021-12-30] MEDS ORDERED: QUEtiapine 25 MG TAB PO PRN (14:24)
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
--- NOTE | 2021-12-30 15:09 | P.PN ---
Subjective Progress Note Date: 12/30/21 Patient this morning was sitting in the chair. She denied any acute complaints. She is denying any suicidal or homicidal idealization. I have not been notified via nurse of any aggressive behavior since admission. Patient seen by psychiatry and started on Seroquel twice a day. Objective - Vital Signs Vital signs: Vital Signs Temp 98.5 F 12/30/21 11:05 Pulse 68 12/30/21 11:05 Resp 18 12/30/21 11:05 BP 147/76 12/30/21 11:05 Pulse Ox 97 12/30/21 11:05 FiO2 Intake & Output 12/29/21 12/30/21 12/30/21 18:59 06:59 18:59 Intake Total 50 600 Output Total 2 Balance 50 600 -2 Intake: Intake, IV Titration 50 Amount cefTRIAXone 1 gm In 50 Sodium Chloride 0.9% 50 ml @ 100 mls/hr IVPB Q24HR TIERA Rx#:[id number] Oral 600 Output: Urine 2 Other: Voiding Method Diaper Diaper Diaper Incontinent Incontinent Incontinent # Voids 2 - Exam General examination - Alert and Oriented 2 in NAD Heart - + S1S2 no murmurs Lungs - diminished patella bilaterally with Abdomen soft NT ND +ve BS Extremities - No edema 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 - Moving all 4 extremities spontaneously Psych - Calm and cooperative - Labs CBC & Chem 7: 12/28/21 14:29 12/28/21 14:29 Labs: Abnormal Lab Results - Last 24 Hours (Table) 12/29/21 12/30/21 12/30/21 Range/Units 20:21 07:03 11:05 POC Glucose (mg/dL) 160 H 115 H 168 H (70-110) mg/dL Microbiology - Last 24 Hours (Table) 12/28/21 16:06 Urine Culture - Preliminary Urine,Voided Gram Neg Bacilli Assessment and Plan Assessment: Urinary tract infection We'll start the patient IV Rocephin Urine culture growing gram-negative bacilli Patient does not meet sepsis criteria Dementia with behavioral disturbance at her long term Psychiatry started the patient on seroquel 25 mg twice a day Resume Zyprexa No aggressive behavior since admission Depression Appreciated psychiatry recommendations Patient denies suicidal or homicidal idealization Diabetes mellitus Sliding-scale insulin DVT prophylaxis: Subcu heparin
[2021-12-30] MEDS: QUEtiapine 25 MG TAB PO SCH ×2 (16:02→22:51)
[2021-12-30 17:14] LABS: Glucose,Whole Blood 151 mg/dL (70-110)
[2021-12-30 20:08] LABS: Glucose,Whole Blood 237 mg/dL (70-110)
[2021-12-30] MEDS: ATORVASTATIN 20 MG TAB PO SCH (20:08)
[2021-12-30] MEDS: ASPIRIN 81 MG PO SCH (20:08)
[2021-12-31 07:20] LABS: Glucose,Whole Blood 118 mg/dL (70-110)
[2021-12-31] MEDS: INSULIN ASPART (NovoLOG) 100 UNIT/ML VIAL SQ SCH ×2 (07:32→13:13)
[2021-12-31] MEDS: TAMSULOSIN 0.4 MG CAP.ER.24H PO SCH (07:59)
[2021-12-31] MEDS: GABAPENTIN 100 MG CAP PO SCH ×2 (07:59→13:13)
[2021-12-31] MEDS: HEPARIN SODIUM,PORCINE/PF 5,000 UNIT/0.5 ML SYRINGE SQ SCH ×2 (07:59→08:03)
[2021-12-31] MEDS: CLOPIDOGREL 75 MG TAB PO SCH (07:59)
[2021-12-31] MEDS: QUEtiapine 25 MG TAB PO SCH (08:00)
[2021-12-31] MEDS: CHOLECALCIFEROL 25 MCG (1000 IU) TABLET PO SCH (08:00)
[2021-12-31 12:04] LABS: Glucose,Whole Blood 205 mg/dL (70-110)
--- NOTE | 2021-12-31 12:29 | P.DS ---
Providers Date of admission: 12/30/21 15:26 Expected date of discharge: 12/31/21 Attending physician: Antony Lucio DO Consults: 12/29/21 13:51 Consult Physician Routine Consulting Provider: Mann Gutierrez Consult Reason/Comments: depression Do you want consulting provider notified?: Yes Primary care physician: Physician Nonstaff Hospital Course: Discharge Diagnosis: Dementia with aggressive behavior likely exacerbated by UTI UTI Diabetes mellitus Hospital Course: Patient is a 76-year-old female with a past medical history dementia who [facility] to her aggressive behavior towards the staff. In the ED patient was found to have a UTI. She was started on antibiotics. During her hospitalization patient did not have any aggressive behavior. Patient seen by psychiatry and her Zyprexa was discontinued and her seroquel was changed to 25 mg twice a day. Patient's urine culture grew Klebsiella pneumonia. She'll be discharged on Ceftin to complete a 5 day antibiotic course. Patient deemed stable for discharge back to her [facility]. General examination - Alert and Oriented 2 in NAD Heart - + S1S2 no murmurs Lungs - diminished patella bilaterally with Abdomen soft NT ND +ve BS Extremities - No edema ADMIN ASSISTANT - Moving all 4 extremities spontaneously Psych - Calm and cooperative A total of [33] minutes of time were spent preparing this complex discharge summary . Patient Condition at Discharge: Fair Plan - Discharge Summary Discharge Rx Participant: No New Discharge Prescriptions: New cefUROXime axetiL [Ceftin] 500 mg PO BID 3 Days #6 tab QUEtiapine [SEROquel] 25 mg PO BID tab Continue sitaGLIPtin PHOSPHATE [Januvia] 100 mg PO DAILY@0700 Clopidogrel Bisulfate [Plavix] 75 mg PO DAILY@0700 Atorvastatin [Lipitor] 20 mg PO HS LORazepam [Ativan] 0.5 mg PO Q6H PRN PRN Reason: Anxiety Cholecalciferol [Vitamin D3 (25 Mcg = 1000 Iu)] 50 mcg PO DAILY Aspirin 81 mg PO HS Acetaminophen [Tylenol Extra Strength] 500 mg PO TID@0700,1300,1900 Gabapentin [Neurontin] 100 mg PO TID@0700,1300,1900 Tamsulosin [Flomax] 0.4 mg PO DAILY@0700 Discontinued Acetaminophen [Tylenol] 650 mg PO Q6H PRN PRN Reason: Pain OLANZapine [ZyPREXA] 2.5 mg PO DAILY@0700 Discharge Medication List Atorvastatin [Lipitor] 20 mg PO HS 04/23/20 [History] Clopidogrel Bisulfate [Plavix] 75 mg PO DAILY@0700 04/23/20 [History] sitaGLIPtin PHOSPHATE [Januvia] 100 mg PO DAILY@0700 04/23/20 [History] Cholecalciferol [Vitamin D3 (25 Mcg = 1000 Iu)] 50 mcg PO DAILY 08/12/20 [History] Acetaminophen [Tylenol Extra Strength] 500 mg PO TID@0700,1300,1900 05/11/21 [History] Aspirin 81 mg PO HS 05/11/21 [History] Gabapentin [Neurontin] 100 mg PO TID@0700,1300,1900 12/06/21 [History] LORazepam [Ativan] 0.5 mg PO Q6H PRN 12/06/21 [History] Tamsulosin [Flomax] 0.4 mg PO DAILY@0700 12/28/21 [History] QUEtiapine [SEROquel] 25 mg PO BID tab 12/31/21 [Rx] cefUROXime axetiL [Ceftin] 500 mg PO BID 3 Days #6 tab 12/31/21 [Rx] Follow up Appointment(s)/Referral(s): Nonstaff,Physician [Primary Care Provider] - 1-2 days Discharge Disposition: TRANSFER TO SNF/ECF
[2021-12-31] MEDS: SODIUM CHLORIDE 0.9% 1,000 ML IV SCH (13:13)
[2021-12-31 13:18] VITALS: BP 129/60; PULSE 71; RESP 16; TEMP 98.2
== END 2021-12-31 14:27 ==
LOC: EC 13:55 → 4SSUR 17:52 → 5NMEDONC 18:45 → INTOOBSV 12-30 15:26 → OBSVTOIN 12-30 15:26 → UNDODISIN 12-31 14:27
PROVIDERS: ADMIT Internal Medicine; ATTEND Internal Medicine
DX: N39.0 Urinary tract infection, site not specified (principal); F03.91 Unspecified dementia, unspecified severity, with behavioral disturbance; B96.1 Klebsiella pneumoniae [K. pneumoniae] as the cause of diseases classified elsewhere; F32.A Depression, unspecified; E11.9 Type 2 diabetes mellitus without complications; E78.5 Hyperlipidemia, unspecified; I10 Essential (primary) hypertension; D86.9 Sarcoidosis, unspecified; R15.9 Full incontinence of feces; R32 Unspecified urinary incontinence; E66.9 Obesity, unspecified; Z68.35 Body mass index [BMI] 35.0-35.9, adult; Z79.02 Long term (current) use of antithrombotics/antiplatelets; Z79.84 Long term (current) use of oral hypoglycemic drugs; Z79.82 Long term (current) use of aspirin; Z79.899 Other long term (current) drug therapy; Z86.14 Personal history of Methicillin resistant Staphylococcus aureus infection; Z16.12 Extended spectrum beta lactamase (ESBL) resistance; Z86.19 Personal history of other infectious and parasitic diseases; Z90.49 Acquired absence of other specified parts of digestive tract; Z87.442 Personal history of urinary calculi; Z87.891 Personal history of nicotine dependence; Z87.440 Personal history of urinary (tract) infections
CPT/HCPCS: 96361 ×2; 96365; 96366; 96372 ×3; 96375; 99285; 36415; 97162; 97166; 80053; 85025; 81001; 80306; 87086; 87077; 87186; G0378 ×5; G0480; J2060; J2405; J0696 ×4; J1644 ×2; 80320; 96374

== ENCOUNTER → 2023-03-06 | Outpatient (CLI) | payer MEDICARE, OTHER ==
--- NOTE | 2023-03-06 15:33 | CT ---
EXAMINATION TYPE: CT abdomen pelvis wo con DATE OF EXAM: 03/06/2023 COMPARISON: 04/06/2021 HISTORY: Renal stones CT DLP: 1116.80 mGycm Examination of the solid and hollow viscera is limited given the lack of contrast. FINDINGS: LUNG BASES: Pleural based pulmonary nodule right middle lobe measuring 1.[address] of the ch est is recommended for further evaluation and/or PET/CT to exclude malignancy. LIVER/GB: The gallbladder is unremarkable. No space-occupying hepatic lesion. PANCREAS: No pancreatic mass identified. No inflammatory process seen. SPLEEN: No evidence for splenomegaly. No intrasplenic lesions seen. ADRENALS: 2.4 cm left adrenal lesion could reflect an adenoma. Right adrenal gland is unremarkable. N o evidence for thickening. KIDNEYS: Large staghorn calculi seen bilaterally difficult to measure however estimated at 5.2 x 3.7 cm on the right and 6.0 x 4.3 cm on the left. Parenchymal thinning noted bilaterally left greater kb n right. No definite obstructive uropathy at this time. Dependent calculi within the urinary bladder lumen. BOWEL: Appendix has a normal appearance. No evidence of bowel obstruction. No inflammatory process. Lymph nodes: No evidence for adenopathy greater than 1 cm. Abdominal aorta: Atheromatous changes seen. No evidence for aneurysm. Genital organs: No significant abnormality. Other: Fat-containing umbilical hernia. Low level and without IMPRESSION: 1.Pleural based pulmonary nodule right middle lobe measuring 1.[address] of the chest is rec ommended for further evaluation and/or PET/CT to exclude malignancy. 2. Large staghorn calculi bilaterally without obstructive uropathy at this time. Multiple small depen dent calculi within the urinary bladder lumen.
== END | disposition home or self-care (01) ==
LOC: RADCTMAIN 14:11
PROVIDERS: ATTEND Urology
DX: N21.0 Calculus in bladder (principal); N20.0 Calculus of kidney; R91.1 Solitary pulmonary nodule
CPT/HCPCS: 74176

== ENCOUNTER 2023-04-18 22:28 | Inpatient (IN) | payer MEDICARE, OTHER ==
[2023-04-18 22:55] LABS: Glucose,Whole Blood 340 mg/dL (70-110)
--- NOTE | 2023-04-18 23:01 | ED ---
General Adult HPI - General Chief complaint: Altered Mental Status Stated complaint: AMS Time Seen by Provider: 04/18/23 22:59 Source: patient, EMS Mode of arrival: EMS Limitations: altered mental status - History of Present Illness Initial comments: This patient is a 77-year-old woman sent from residential to have evaluation of altered mental status and hyperglycemia. The patient reported to be very minimally responsive prior to leaving the residential. When I interview the patient, she is able answer simple questions. She denies pain. No dyspnea. Not able to otherwise characterize her symptoms. -: unknown Consistency: constant Improves with: none Worsens with: none - Related Data Home Medications Medication Instructions Recorded Confirmed Atorvastatin [Lipitor] 20 mg PO HS@199904/23/20 04/19/23 Clopidogrel Bisulfate [Plavix] 75 mg PO DAILY@69904/23/20 04/19/23 sitaGLIPtin PHOSPHATE [Januvia] 100 mg PO DAILY@69904/23/20 04/19/23 Cholecalciferol [Vitamin D3 (25 50 mcg PO DAILY@69908/12/20 04/19/23 Mcg = 1000 Iu)] Acetaminophen [Tylenol Extra 500 mg PO TID@0700,1300,1900 05/11/21 04/19/23 Strength] Aspirin 81 mg PO HS@199905/11/21 04/19/23 Tamsulosin [Flomax] 0.4 mg PO DAILY@69912/28/21 04/19/23 Citalopram Hydrobromide [CeleXA] 10 mg PO DAILY@69904/19/23 04/19/23 Empagliflozin [Jardiance] 10 mg PO DAILY@69904/19/23 04/19/23 QUEtiapine [SEROquel] 12.5 mg PO HS@199904/19/23 04/19/23 Allergies Allergy/AdvReac Type Severity Reaction Status Date / Time No Known Allergies Allergy Verified 04/19/23 06:28 Review of Systems ROS Statement: Those systems with pertinent positive or pertinent negative responses have been documented in the HPI. ROS Other: All systems not noted in ROS Statement are negative. Limitations: ROS unobtainable due to patients medical condition Constitutional: Reports: weakness. Denies: fever Respiratory: Denies: cough Gastrointestinal: Denies: vomiting Neurological: Denies: headache Past Medical History Past Medical History: Dementia, Diabetes Mellitus, Hyperlipidemia, Hypertension, Respiratory Disorder Additional Past Medical History / Comment(s): Sarcoidosis, hx of and current kidney stones, chronic UTI's, bladder and bowel incontinence. History of Any Multi-Drug Resistant Organisms: ESBL, MRSA Date of last positivie culture/infection: 04/25/21 ESBL Klebsiella; 12/17/08 MRSA MDRO Source:: ESBL-Urine aspirated-renal pelvis; MRSA-[place]wn Past Surgical History: Cholecystectomy Additional Past Surgical History / Comment(s): Surgery for kidney stones. Past Anesthesia/Blood Transfusion Reactions: No Reported Reaction Past Psychological History: Depression Smoking Status: Former smoker Past Alcohol Use History: None Reported Past Drug Use History: None Reported - Past Family History Mother Family Medical History: No Reported History Father History Unknown: Yes General Exam Limitations: no limitations General appearance: alert Head exam: Present: atraumatic, normocephalic Eye exam: Present: normal appearance. Absent: scleral icterus, conjunctival injection ENT exam: Present: mucous membranes dry Neck exam: Present: normal inspection, full ROM. Absent: meningismus Respiratory exam: Present: rhonchi. Absent: respiratory distress, wheezes, rales, stridor, accessory muscle use, decreased breath sounds Cardiovascular Exam: Present: regular rate, normal rhythm, normal heart sounds. Absent: systolic murmur, diastolic murmur, rubs, gallop GI/Abdominal exam: Present: soft. Absent: distended, tenderness, guarding, rebound, rigid, mass Extremities exam: Present: normal inspection, normal capillary refill, other. Absent: pedal edema, calf tenderness Back exam: Present: normal inspection. Absent: CVA tenderness (R), CVA tenderness (L) Neurological exam: Present: alert. Absent: oriented X3, motor sensory deficit Skin exam: Present: warm, dry, intact, normal color. Absent: rash Course Vital Signs 04/18/23 04/18/23 04/18/23 22:37 23:07 23:29 Temperature 97.8 F Pulse Rate 80 81 82 Respiratory 16 14 16 Rate Blood Pressure 130/74 114/72 129/84 O2 Sat by Pulse 96 95 Oximetry 04/19/23 04/19/23 04/19/23 02:19 05:52 08:31 Temperature 98.4 F 97.3 F L Pulse Rate 81 76 74 Respiratory 16 16 16 Rate Blood Pressure 111/63 127/81 110/80 O2 Sat by Pulse 97 96 98 Oximetry 04/19/23 04/19/23 04/19/23 10:30 18:07 23:50 Temperature 97.7 F Pulse Rate 74 60 58 L Respiratory 18 20 18 Rate Blood Pressure 112/76 117/62 116/63 O2 Sat by Pulse 98 95 100 Oximetry 04/20/23 04/20/23 04/20/23 01:00 02:00 04:32 Temperature Pulse Rate 56 L 57 L 56 L Respiratory 18 16 16 Rate Blood Pressure 129/99 126/60 131/87 O2 Sat by Pulse 96 96 96 Oximetry 04/20/23 04/20/23 04/20/23 05:55 07:54 13:05 Temperature 98 F 97.5 F L 97.5 F L Pulse Rate 61 65 70 Respiratory 18 18 18 Rate Blood Pressure 108/58 142/71 115/73 O2 Sat by Pulse 96 97 97 Oximetry EKG Findings - EKG Results: EKG: interpreted by ERMD, sinus rhythm (rate 80 bpm) - Blocks, [place], Hypertrophy, ST Abn: QRS axis and voltage: low voltage (<0.5 MV total QRS and <1.0 MV in each precordial lead) Medical Decision Making - Medical Decision Making The patient had chest x-ray which I interpreted as negative for acute infiltrate, pneumothorax, congestive heart failure. Was pt. sent in by a medical professional or institution (JABARI Denise, [employer], urgent care, hospital, or residential...) When possible be specific @ -[No] Did you speak to anyone other than the patient for history (EMS, parent, family, police, friend...)? What history was obtained from this source @ -[No] Did you review nursing and triage notes (agree or disagree)? Why? @ -[I reviewed and agree with nursing and triage notes] Were old charts reviewed (outside hosp., previous admission, EMS record, old EKG, old radiological studies, urgent care reports/EKG's, residential records)? Report findings @ -[No old charts were reviewed] Differential Diagnosis (chest pain, altered mental status, abdominal pain women, abdominal pain men, vaginal bleeding, weakness, fever, dyspnea, syncope, headache, dizziness, GI bleed, back pain, seizure, CVA, palpatations, mental health, musculoskeletal)? @ -[Differential Altered Mental Status: Hypoglycemia, DKA, hypercapnia, ETOH, overdose, CO poisoning, trauma, myxedema coma, HTN encephalopathy, infection, encephalitis, psychosis, intercranial hem orrhage, hepatic encephalopathy, meningitis, CVA, this is not meant to be an all-inclusive list EKG interpreted by me (3pts min.). @ -[As above] X-rays interpreted by me (1pt min.). @ -[I interpreted as above CT interpreted by me (1pt min.). @ -[None done] U/S interpreted by me (1pt. min.). @ -[None done] What testing was considered but not performed or refused? (CT, X-rays, U/S, labs)? Why? @ -[None] What meds were considered but not given or refused? Why? @ -[None] Did you discuss the management of the patient with other professionals (professionals i.e. , PA, [employer], lab, RT, psych nurse, social media strategist, shank turner, teacher, customer service officer, shoe parts caser)? Give summary @ -[No] Was smoking cessation discussed for >3mins.? @ -[No] Was critical care preformed (if so, how long)? @ -[No] Were there social determinants of health that impacted care today? How? (Homelessness, low income, unemployed, alcoholism, drug addiction, transportat ion, low edu. Level, literacy, decrease access to med. care, detention, rehab)? @ -[No] Was there de-escalation of care discussed even if they declined (Discuss DNR or withdrawal of care, Hospice)? DNR status @ -[No] What co-morbidities impacted this encounter? (DM, HTN, Smoking, COPD, CAD, Cancer, CVA, ARF, Chemo, Hep., AIDS, mental health diagnosis, sleep apnea, morbid obesity)? @ -[None] Was patient admitted / discharged? Hospital course, mention meds given and route, prescriptions, significant lab abnormalities, going to OR and other pertinent info. @ -[Patient is 77-year-old woman here to have evaluation of altered mental status, found to have urinary tract infection and hypernatremia. There is also metabolic encephalopathy/delirium. The patient is started on antibiotics and will have admission Undiagnosed new problem with uncertain prognosis? @ -[No] Drug Therapy requiring intensive monitoring for toxicity (Heparin, Nitro, Insulin, Cardizem)? @ -[No] Were any procedures done? @ -[No] Diagnosis/symptom? @ -[Acute urinary tract infection Acute hypernatremia Acute kidney injury Elevated troponin I Acute delirium Acute, or Chronic, or Acute on Chronic? @ -[Acute Uncomplicated (without systemic symptoms) or Complicated (systemic symptoms)? @ -[Complicated by acute delirium fects of treatment? @ -[No] Exacerbation, Progression, or Severe Exacerbation? @ -[No] Poses a threat to life or bodily function? How? (Chest pain, [place], [place], pneumonia, PE, COPD, DKA, ARF, appy, cholecystitis, CVA, Diverticulitis, Homicidal, Suicidal, threat to staff... and all critical care pts) @ yes there is moderate risk of morbidity/mortality in older patient with this degree of hypernatremia and urinary tract infection - Lab Data Result diagrams: 04/23/23 07:46 04/25/23 08:19 Lab Results 04/18/23 04/18/23 04/18/23 Range/Units 22:54 23:32 23:32 WBC 11.7 H (3.8-10.6) k/uL RBC 4.98 (3.80-5.40) m/uL Hgb 15.8 (11.4-16.0) gm/dL Hct 51.0 H (34.0-46.0) % MCV 102.4 H (80.0-100.0) fL MCH 31.6 (25.0-35.0) pg MCHC 30.9 L (31.0-37.0) g/dL RDW 15.1 (11.5-15.5) % Plt Count 188 (150-450) k/uL MPV 8.7 Neutrophils % 76 % Lymphocytes % 16 % Monocytes % 5 % Eosinophils % 1 % Basophils % 0 % Neutrophils # 8.9 H (1.3-7.7) k/uL Lymphocytes # 1.8 (1.0-4.8) k/uL Monocytes # 0.6 (0-1.0) k/uL Eosinophils # 0.1 (0-0.7) k/uL Basophils # 0.0 (0-0.2) k/uL Hypochromasia Moderate Macrocytosis Slight Sodium 164 H* (137-145) mmol/L Potassium 3.9 (3.5-5.1) mmol/L Chloride 128 H (98-107) mmol/L Carbon Dioxide 21 L (22-30) mmol/L Anion Gap 15 mmol/L BUN 66 H (7-17) mg/dL Creatinine 1.69 H (0.52-1.04) mg/dL Est GFR (CKD-EPI)AfAm 33 (>60 ml/min/1.73 sqM) Est GFR (CKD-EPI)NonAf 29 (>60 ml/min/1.73 sqM) Glucose 426 H (74-99) mg/dL POC Glucose (mg/dL) 340 H (70-110) mg/dL POC Glu Aircraft Instrument Repairer ID Brandon Guo Osmolality (280-301) mosm/kg Lactic Ac Sepsis Rflx Plasma Lactic Acid Raudel (0.7-2.0) mmol/L Calcium 9.4 (8.4-10.2) mg/dL Total Bilirubin 0.9 (0.2-1.3) mg/dL AST 135 H (14-36) U/L ALT 181 H (4-34) U/L Alkaline Phosphatase 154 H (38-126) U/L Troponin I (0.000-0.034) ng/mL Total Protein 7.1 (6.3-8.2) g/dL Albumin 3.6 (3.5-5.0) g/dL Urine Color Urine Appearance (Clear) Urine pH (5.0-8.0) Ur Specific [place] (1.001-1.035) Urine Protein (Negative) Urine Glucose (UA) (Negative) Urine Ketones (Negative) Urine Blood (Negative) Urine Nitrite (Negative) Urine Bilirubin (Negative) Urine Urobilinogen (<2.0) mg/dL Ur Leukocyte Esterase (Negative) Urine RBC (0-5) /hpf Urine WBC (0-5) /hpf Urine WBC Clumps (None) /hpf Ur Squamous Epith Cells (0-4) /hpf Urine Bacteria (None) /hpf Urine Mucus (None) /hpf Urine Osmolality (50-1400) mosm/kg Ur Random Creatinine mg/dL Ur Random Sodium (40-220) mmol/L Ur Random Potassium (25.0-125.0) mmol/L Acetone, Qual Negative (Negative) Influenza Type A (PCR) (Not Detectd) Influenza Type B (PCR) (Not Detectd) RSV (PCR) (Not Detectd) SARS-CoV-2 (PCR) (Not Detectd) 04/18/23 04/18/23 04/18/23 Range/Units 23:32 23:32 23:40 WBC (3.8-10.6) k/uL RBC (3.80-5.40) m/uL Hgb (11.4-16.0) gm/dL Hct (34.0-46.0) % MCV (80.0-100.0) fL MCH (25.0-35.0) pg MCHC (31.0-37.0) g/dL RDW (11.5-15.5) % Plt Count (150-450) k/uL MPV Neutrophils % % Lymphocytes % % Monocytes % % Eosinophils % % Basophils % % Neutrophils # (1.3-7.7) k/uL Lymphocytes # (1.0-4.8) k/uL Monocytes # (0-1.0) k/uL Eosinophils # (0-0.7) k/uL Basophils # (0-0.2) k/uL Hypochromasia Macrocytosis Sodium (137-145) mmol/L Potassium (3.5-5.1) mmol/L Chloride (98-107) mmol/L Carbon Dioxide (22-30) mmol/L Anion Gap mmol/L BUN (7-17) mg/dL Creatinine (0.52-1.04) mg/dL Est GFR (CKD-EPI)AfAm (>60 ml/min/1.73 sqM) Est GFR (CKD-EPI)NonAf (>60 ml/min/1.73 sqM) Glucose (74-99) mg/dL POC Glucose (mg/dL) (70-110) mg/dL POC Glu Aircraft Instrument Repairer ID Osmolality (280-301) mosm/kg Lactic Ac Sepsis Rflx Plasma Lactic Acid Raudel 2.3 H* (0.7-2.0) mmol/L Calcium (8.4-10.2) mg/dL Total Bilirubin (0.2-1.3) mg/dL AST (14-36) U/L ALT (4-34) U/L Alkaline Phosphatase (38-126) U/L Troponin I 0.037 H* (0.000-0.034) ng/mL Total Protein (6.3-8.2) g/dL Albumin (3.5-5.0) g/dL Urine Color Urine Appearance (Clear) Urine pH (5.0-8.0) Ur Specific [place] (1.001-1.035) Urine Protein (Negative) Urine Glucose (UA) (Negative) Urine Ketones (Negative) Urine Blood (Negative) Urine Nitrite (Negative) Urine Bilirubin (Negative) Urine Urobilinogen (<2.0) mg/dL Ur Leukocyte Esterase (Negative) Urine RBC (0-5) /hpf Urine WBC (0-5) /hpf Urine WBC Clumps (None) /hpf Ur Squamous Epith Cells (0-4) /hpf Urine Bacteria (None) /hpf Urine Mucus (None) /hpf Urine Osmolality (50-1400) mosm/kg Ur Random Creatinine mg/dL Ur Random Sodium (40-220) mmol/L Ur Random Potassium (25.0-125.0) mmol/L Acetone, Qual (Negative) Influenza Type A (PCR) Not Detected (Not Detectd) Influenza Type B (PCR) Not Detected (Not Detectd) RSV (PCR) Not Detected (Not Detectd) SARS-CoV-2 (PCR) Not Detected (Not Detectd) 04/18/23 04/19/23 04/19/23 Range/Units 23:53 02:12 03:44 WBC (3.8-10.6) k/uL RBC (3.80-5.40) m/uL Hgb (11.4-16.0) gm/dL Hct (34.0-46.0) % MCV (80.0-100.0) fL MCH (25.0-35.0) pg MCHC (31.0-37.0) g/dL RDW (11.5-15.5) % Plt Count (150-450) k/uL MPV Neutrophils % % Lymphocytes % % Monocytes % % Eosinophils % % Basophils % % Neutrophils # (1.3-7.7) k/uL Lymphocytes # (1.0-4.8) k/uL Monocytes # (0-1.0) k/uL Eosinophils # (0-0.7) k/uL Basophils # (0-0.2) k/uL Hypochromasia Macrocytosis Sodium (137-145) mmol/L Potassium (3.5-5.1) mmol/L Chloride (98-107) mmol/L Carbon Dioxide (22-30) mmol/L Anion Gap mmol/L BUN (7-17) mg/dL Creatinine (0.52-1.04) mg/dL Est GFR (CKD-EPI)AfAm (>60 ml/min/1.73 sqM) Est GFR (CKD-EPI)NonAf (>60 ml/min/1.73 sqM) Glucose (74-99) mg/dL POC Glucose (mg/dL) (70-110) mg/dL POC Glu Aircraft Instrument Repairer ID Osmolality (280-301) mosm/kg Lactic Ac Sepsis Rflx Y Plasma Lactic Acid Raudel 2.0 (0.7-2.0) mmol/L Calcium (8.4-10.2) mg/dL Total Bilirubin (0.2-1.3) mg/dL AST (14-36) U/L ALT (4-34) U/L Alkaline Phosphatase (38-126) U/L Troponin I (0.000-0.034) ng/mL Total Protein (6.3-8.2) g/dL Albumin (3.5-5.0) g/dL Urine Color Yellow Urine Appearance Cloudy H (Clear) Urine pH 7.5 (5.0-8.0) Ur Specific [place] 1.022 (1.001-1.035) Urine Protein 1+ H (Negative) Urine Glucose (UA) 4+ H (Negative) Urine Ketones Negative (Negative) Urine Blood Large H (Negative) Urine Nitrite Negative (Negative) Urine Bilirubin Negative (Negative) Urine Urobilinogen <2.0 (<2.0) mg/dL Ur Leukocyte Esterase Large H (Negative) Urine RBC 98 H (0-5) /hpf Urine WBC >182 H (0-5) /hpf Urine WBC Clumps Occasional H (None) /hpf Ur Squamous Epith Cells <1 (0-4) /hpf Urine Bacteria Many H (None) /hpf Urine Mucus Rare H (None) /hpf Urine Osmolality (50-1400) mosm/kg Ur Random Creatinine mg/dL Ur Random Sodium (40-220) mmol/L Ur Random Potassium (25.0-125.0) mmol/L Acetone, Qual (Negative) Influenza Type A (PCR) (Not Detectd) Influenza Type B (PCR) (Not Detectd) RSV (PCR) (Not Detectd) SARS-CoV-2 (PCR) (Not Detectd) 04/19/23 04/19/23 04/19/23 Range/Units 03:44 03:44 03:44 WBC (3.8-10.6) k/uL RBC (3.80-5.40) m/uL Hgb (11.4-16.0) gm/dL Hct (34.0-46.0) % MCV (80.0-100.0) fL MCH (25.0-35.0) pg MCHC (31.0-37.0) g/dL RDW (11.5-15.5) % Plt Count (150-450) k/uL MPV Neutrophils % % Lymphocytes % % Monocytes % % Eosinophils % % Basophils % % Neutrophils # (1.3-7.7) k/uL Lymphocytes # (1.0-4.8) k/uL Monocytes # (0-1.0) k/uL Eosinophils # (0-0.7) k/uL Basophils # (0-0.2) k/uL Hypochromasia Macrocytosis Sodium (137-145) mmol/L Potassium (3.5-5.1) mmol/L Chloride (98-107) mmol/L Carbon Dioxide (22-30) mmol/L Anion Gap mmol/L BUN (7-17) mg/dL Creatinine (0.52-1.04) mg/dL Est GFR (CKD-EPI)AfAm (>60 ml/min/1.73 sqM) Est GFR (CKD-EPI)NonAf (>60 ml/min/1.73 sqM) Glucose (74-99) mg/dL POC Glucose (mg/dL) (70-110) mg/dL POC Glu Aircraft Instrument Repairer ID Osmolality 382 H* (280-301) mosm/kg Lactic Ac Sepsis Rflx Plasma Lactic Acid Raudel (0.7-2.0) mmol/L Calcium (8.4-10.2) mg/dL Total Bilirubin (0.2-1.3) mg/dL AST (14-36) U/L ALT (4-34) U/L Alkaline Phosphatase (38-126) U/L Troponin I (0.000-0.034) ng/mL Total Protein (6.3-8.2) g/dL Albumin (3.5-5.0) g/dL Urine Color Urine Appearance (Clear) Urine pH (5.0-8.0) Ur Specific [place] (1.001-1.035) Urine Protein (Negative) Urine Glucose (UA) (Negative) Urine Ketones (Negative) Urine Blood (Negative) Urine Nitrite (Negative) Urine Bilirubin (Negative) Urine Urobilinogen (<2.0) mg/dL Ur Leukocyte Esterase (Negative) Urine RBC (0-5) /hpf Urine WBC (0-5) /hpf Urine WBC Clumps (None) /hpf Ur Squamous Epith Cells (0-4) /hpf Urine Bacteria (None) /hpf Urine Mucus (None) /hpf Urine Osmolality 645 (50-1400) mosm/kg Ur Random Creatinine 42.6 mg/dL Ur Random Sodium (40-220) mmol/L Ur Random Potassium (25.0-125.0) mmol/L Acetone, Qual (Negative) Influenza Type A (PCR) (Not Detectd) Influenza Type B (PCR) (Not Detectd) RSV (PCR) (Not Detectd) SARS-CoV-2 (PCR) (Not Detectd) 04/19/23 Range/Units 03:44 WBC (3.8-10.6) k/uL RBC (3.80-5.40) m/uL Hgb (11.4-16.0) gm/dL Hct (34.0-46.0) % MCV (80.0-100.0) fL MCH (25.0-35.0) pg MCHC (31.0-37.0) g/dL RDW (11.5-15.5) % Plt Count (150-450) k/uL MPV Neutrophils % % Lymphocytes % % Monocytes % % Eosinophils % % Basophils % % Neutrophils # (1.3-7.7) k/uL Lymphocytes # (1.0-4.8) k/uL Monocytes # (0-1.0) k/uL Eosinophils # (0-0.7) k/uL Basophils # (0-0.2) k/uL Hypochromasia Macrocytosis Sodium (137-145) mmol/L Potassium (3.5-5.1) mmol/L Chloride (98-107) mmol/L Carbon Dioxide (22-30) mmol/L Anion Gap mmol/L BUN (7-17) mg/dL Creatinine (0.52-1.04) mg/dL Est GFR (CKD-EPI)AfAm (>60 ml/min/1.73 sqM) Est GFR (CKD-EPI)NonAf (>60 ml/min/1.73 sqM) Glucose (74-99) mg/dL POC Glucose (mg/dL) (70-110) mg/dL POC Glu Aircraft Instrument Repairer ID Osmolality (280-301) mosm/kg Lactic Ac Sepsis Rflx Plasma Lactic Acid Raudel (0.7-2.0) mmol/L Calcium (8.4-10.2) mg/dL Total Bilirubin (0.2-1.3) mg/dL AST (14-36) U/L ALT (4-34) U/L Alkaline Phosphatase (38-126) U/L Troponin I (0.000-0.034) ng/mL Total Protein (6.3-8.2) g/dL Albumin (3.5-5.0) g/dL Urine Color Urine Appearance (Clear) Urine pH (5.0-8.0) Ur Specific [place] (1.001-1.035) Urine Protein (Negative) Urine Glucose (UA) (Negative) Urine Ketones (Negative) Urine Blood (Negative) Urine Nitrite (Negative) Urine Bilirubin (Negative) Urine Urobilinogen (<2.0) mg/dL Ur Leukocyte Esterase (Negative) Urine RBC (0-5) /hpf Urine WBC (0-5) /hpf Urine WBC Clumps (None) /hpf Ur Squamous Epith Cells (0-4) /hpf Urine Bacteria (None) /hpf Urine Mucus (None) /hpf Urine Osmolality (50-1400) mosm/kg Ur Random Creatinine mg/dL Ur Random Sodium 43 (40-220) mmol/L Ur Random Potassium 27.6 (25.0-125.0) mmol/L Acetone, Qual (Negative) Influenza Type A (PCR) (Not Detectd) Influenza Type B (PCR) (Not Detectd) RSV (PCR) (Not Detectd) SARS-CoV-2 (PCR) (Not Detectd) Disposition Clinical Impression: Acute delirium, UTI (urinary tract infection), Hypernatremia Disposition: ADMITTED IP TO THIS HOSP Condition: Poor Is patient prescribed a controlled substance at d/c from ED?: No
[2023-04-18] MEDS ORDERED: SODIUM CHLORIDE 0.9% 1,000 ML IV STA (23:31)
[2023-04-18 23:46] LABS: ALT 181 U/L (4-34); AST 135 U/L (14-36); African American GFR (CKD) 33 (>60 ml/min/1.73 sqM); Albumin 3.6 g/dL (3.5-5.0); Alkaline Phosphatase 154 U/L (38-126); Anion Gap 15 mmol/L; Blood Urea Nitrogen 66 mg/dL (7-17); Calcium 9.4 mg/dL (8.4-10.2); Carbon Dioxide 21 mmol/L (22-30); Chloride 128 mmol/L (98-107); Glucose 426 mg/dL (74-99); Non-African American GFR(CKD) 29 (>60 ml/min/1.73 sqM); Potassium 3.9 mmol/L (3.5-5.1); Total Bilirubin 0.9 mg/dL (0.2-1.3); Total Protein 7.1 g/dL (6.3-8.2)
[2023-04-18 23:50] LABS: Basophils % (A) 0 %; Eosinophils # (A) 0.1 k/uL (0-0.7); Eosinophils % (A) 1 %; HGB 15.8 gm/dL (11.4-16.0); Hypochromasia Moderate; Lymphocytes # (A) 1.8 k/uL (1.0-4.8); Lymphocytes % (A) 16 %; MCH 31.6 pg (25.0-35.0); MCHC 30.9 g/dL (31.0-37.0); MCV 102.4 fL (80.0-100.0); Macrocytosis Slight; Mean Platelet Volume 8.7; Monocytes # (A) 0.6 k/uL (0-1.0); Monocytes % (A) 5 %; Neutrophils # (A) 8.9 k/uL (1.3-7.7); Neutrophils % (A) 76 %; Platelet Count 188 k/uL (150-450); RBC 4.98 m/uL (3.80-5.40); RDW 15.1 % (11.5-15.5); WBC 11.7 k/uL (3.8-10.6)
[2023-04-18 23:51] LABS: Sodium 164 mmol/L (137-145)
--- NOTE | 2023-04-19 00:09 | XR ---
EXAM: XR Chest, 1 View CLINICAL HISTORY: ITS.REASON XR Reason: altered mental status TECHNIQUE: Frontal view of the chest. COMPARISON: No relevant prior studies available. FINDINGS: Lungs: Unremarkable. No consolidation. Pleural space: Unremarkable. No pneumothorax. Heart: Unremarkable. No cardiomegaly. Mediastinum: Unremarkable. Normal mediastinal contour. Bones/joints: Unremarkable. No acute fracture. Vasculature: Calcified aorta. IMPRESSION: No acute findings in the chest.
[2023-04-19 04:16] LABS: Appearance,Urine Cloudy (Clear); Bacteria,Urine Many /hpf; Bilirubin,Urine Negative (Negative); Blood,Urine Large (Negative); Color,Urine Yellow; Glucose,Urine (UA) 4+ (Negative); Ketones,Urine Negative (Negative); Leukocyte Esterase,Urine Large (Negative); Mucus,Urine Rare /hpf; Nitrite,Urine Negative (Negative); PH, Urine 7.5 (5.0-8.0); Protein,Urine 1+ (Negative); RBC,Urine 98 /hpf (0-5); Specific Gravity,Urine 1.022 (1.001-1.035); Squamous Epithelial Cell,Urine <1 /hpf (0-4); Urobilinogen,Urine <2.0 mg/dL (<2.0); WBC,Urine >182 /hpf (0-5)
[2023-04-19] MEDS ORDERED: NALOXONE 0.4 MG/ML 1 ML VIAL IV PRN (04:27)
[2023-04-19] MEDS ORDERED: ACETAMINOPHEN TAB 325 MG TAB PO PRN (04:27)
[2023-04-19] MEDS ORDERED: INSULIN REGULAR 100 UNIT/ML VIAL (IV) IV STA (05:12)
[2023-04-19 05:47] LABS: Glucose,Whole Blood 419 mg/dL (70-110)
[2023-04-19] MEDS: CLOPIDOGREL 75 MG TAB PO SCH (06:15)
[2023-04-19] MEDS ORDERED: GABAPENTIN 100 MG CAP PO SCH (07:00)
[2023-04-19 07:04] LABS: Glucose,Whole Blood 328 mg/dL (70-110)
[2023-04-19] MEDS: CHOLECALCIFEROL 25 MCG (1000 IU) TABLET PO SCH (08:31)
[2023-04-19] MEDS ORDERED: FAMOTIDINE 20 MG TAB PO SCH (09:00)
[2023-04-19] MEDS ORDERED: QUEtiapine 25 MG TAB PO PRN (10:31)
[2023-04-19 10:37] LABS: Glucose,Whole Blood 258 mg/dL (70-110)
[2023-04-19 10:42] LABS: Potassium,Urine Random 27.6 mmol/L (25.0-125.0)
--- NOTE | 2023-04-19 10:42 | P.HPIM ---
History of Present Illness 77-year-old female assisted resident with advanced dementia was sent in here because of increased mental status changes and nonverbal. Patient usually is verbal and lately has become nonverbal patient doesn't have any fevers does have mild leukocytosis patient is found to have severe hyponatremia with serum sodium of 164 and clinically appears to be severely dehydrated due to poor by mouth intake. Patient also has lactic acidosis secondary to poor by mouth intake and patient blood sugars are very high. Unable to get any history from the patient. REVIEW OF SYSTEMS: Unable to obtain PHYSICAL EXAMINATION: GENERAL: The patient is alert and nonverbal, not agitated, not in any acute distress. Well developed, well nourished. HEENT: Pupils are round and equally reacting to light. EOMI. No scleral icterus. No conjunctival pallor. Normocephalic, atraumatic. No pharyngeal erythema. No thyromegaly. Mucous membranes CARDIOVASCULAR: S1 and S2 present. No murmurs, rubs, or gallops. PULMONARY: Chest is clear to auscultation, no wheezing or crackles. ABDOMEN: Soft, nontender, nondistended, normoactive bowel sounds. No palpable organomegaly. MUSCULOSKELETAL: No joint swelling or deformity. EXTREMITIES: No cyanosis, clubbing, or pedal edema. NEUROLOGICAL: Patient is awake and alert and not agitated neuro exam is limited by nonverbal state and patient doesn't follow commands much but I believe she can understand. SKIN: No rashes. Assessment and plan Severe hypernatremia: Hypovolemic hypernatremia, patient is diabetic and that her blood sugars are already elevated will give her long-acting insulin followed by sliding scale every 6 hours or with each meal and patient will be started on D5 water at 75 mL per hour - macrocytosis probably B12 deficiency, will obtain B12 levels -Acute renal failure is secondary to dehydration and intravascular depletion prerenal azotemia, IV fluids as mentioned above -Lactic acidosis secondary to dehydration -Transaminitis nonspecific elevation secondary to severe dehydration and volume depletion we'll repeat CMP tomorrow -The respiratory distress with the elevated blood sugars blood sugars are expected to go higher with D5 would will treat with as needed insulin -Abnormal urine: Patient doesn't have any fever and doesn't appear to be septic if patient becomes febrile will consider starting on antibiotics although patient is not a reliable historian to get UTI symptoms patient doesn't have any suprapubic tenderness her confusion is mostly secondary to hyponatremia and dehydration -Mild troponin elevation: Secondary to acute renal failure and dehydration -Advanced dementia mostly vascular, supportive care will use Seroquel as needed at nighttime if she has any agitation episodes which are expected -Patient course status presently is full code patient is more appropriate for DO NOT RESUSCITATE will discuss with the son later today to make certain patient's for DVT prophylaxis: Subcutaneous heparin Past Medical History Past Medical History: Dementia, Diabetes Mellitus, Hyperlipidemia, Hypertension, Respiratory Disorder Additional Past Medical History / Comment(s): Sarcoidosis, hx of and current kidney stones, chronic UTI's, bladder and bowel incontinence. History of Any Multi-Drug Resistant Organisms: ESBL, MRSA Date of last positivie culture/infection: 04/25/21 ESBL Klebsiella; 12/17/08 MRSA MDRO Source:: ESBL-Urine aspirated-renal pelvis; MRSA-unkonwn Past Surgical History: Cholecystectomy Additional Past Surgical History / Comment(s): Surgery for kidney stones. Past Anesthesia/Blood Transfusion Reactions: No Reported Reaction Past Psychological History: Depression Smoking Status: Former smoker Past Alcohol Use History: None Reported Past Drug Use History: None Reported - Past Family History Mother Family Medical History: No Reported History Medications and Allergies Home Medications Medication Instructions Recorded Confirmed Type Atorvastatin [Lipitor] 20 mg PO HS@199904/23/20 04/19/23 History Clopidogrel Bisulfate [Plavix] 75 mg PO DAILY@69904/23/20 04/19/23 History sitaGLIPtin PHOSPHATE [Januvia] 100 mg PO DAILY@69904/23/20 04/19/23 History Cholecalciferol [Vitamin D3 (25 50 mcg PO DAILY@69908/12/20 04/19/23 History Mcg = 1000 Iu)] Acetaminophen [Tylenol Extra 500 mg PO TID@0700,1300,1900 05/11/21 04/19/23 History Strength] Aspirin 81 mg PO HS@199905/11/21 04/19/23 History Gabapentin [Neurontin] 100 mg PO TID@0700,1300,1900 12/06/21 04/19/23 History LORazepam [Ativan] 0.5 mg PO TID@0700,1300,1900 12/06/21 04/19/23 History Tamsulosin [Flomax] 0.4 mg PO DAILY@0700 21/22 01/11/24 History Citalopram Hydrobromide [CeleXA] 10 mg PO DAILY@69904/19/23 04/19/23 History Empagliflozin [Jardiance] 10 mg PO DAILY@69904/19/23 04/19/23 History QUEtiapine [SEROquel] 12.5 mg PO HS@199904/19/23 04/19/23 History Allergies Allergy/AdvReac Type Severity Reaction Status Date / Time No Known Allergies Allergy Verified 04/19/23 06:28 Physical Exam Vitals: Vital Signs Temp Pulse Resp BP Pulse Ox 04/19/23 08:31 97.3 F L 74 16 110/80 98 04/19/23 05:52 98.4 F 76 16 127/81 96 04/19/23 02:19 81 16 111/63 97 04/18/23 23:29 82 16 129/84 95 04/18/23 23:07 81 14 114/72 04/18/23 22:37 97.8 F 80 16 130/74 96 Intake and Output 04/18/23 04/19/23 04/19/23 22:59 06:59 14:59 Other: Weight 90.718 kg Results CBC & Chem 7: 04/18/23 23:32 04/18/23 23:32 Labs: Abnormal Lab Results - Last 24 Hours (Table) 04/18/23 04/18/23 04/18/23 Range/Units 22:54 23:32 23:32 WBC 11.7 H (3.8-10.6) k/uL Hct 51.0 H (34.0-46.0) % MCV 102.4 H (80.0-100.0) fL MCHC 30.9 L (31.0-37.0) g/dL Neutrophils # 8.9 H (1.3-7.7) k/uL Sodium 164 H* (137-145) mmol/L Chloride 128 H (98-107) mmol/L Carbon Dioxide 21 L (22-30) mmol/L BUN 66 H (7-17) mg/dL Creatinine 1.69 H (0.52-1.04) mg/dL Glucose 426 H (74-99) mg/dL POC Glucose (mg/dL) 340 H (70-110) mg/dL Osmolality (280-301) mosm/kg Plasma Lactic Acid Raudel (0.7-2.0) mmol/L AST 135 H (14-36) U/L ALT 181 H (4-34) U/L Alkaline Phosphatase 154 H (38-126) U/L Troponin I (0.000-0.034) ng/mL Urine Appearance (Clear) Urine Protein (Negative) Urine Glucose (UA) (Negative) Urine Blood (Negative) Ur Leukocyte Esterase (Negative) Urine RBC (0-5) /hpf Urine WBC (0-5) /hpf Urine WBC Clumps (None) /hpf Urine Bacteria (None) /hpf Urine Mucus (None) /hpf 04/18/23 04/18/23 04/19/23 Range/Units 23:32 23:32 03:44 WBC (3.8-10.6) k/uL Hct (34.0-46.0) % MCV (80.0-100.0) fL MCHC (31.0-37.0) g/dL Neutrophils # (1.3-7.7) k/uL Sodium (137-145) mmol/L Chloride (98-107) mmol/L Carbon Dioxide (22-30) mmol/L BUN (7-17) mg/dL Creatinine (0.52-1.04) mg/dL Glucose (74-99) mg/dL POC Glucose (mg/dL) (70-110) mg/dL Osmolality (280-301) mosm/kg Plasma Lactic Acid Raudel 2.3 H* (0.7-2.0) mmol/L AST (14-36) U/L ALT (4-34) U/L Alkaline Phosphatase (38-126) U/L Troponin I 0.037 H* (0.000-0.034) ng/mL Urine Appearance Cloudy H (Clear) Urine Protein 1+ H (Negative) Urine Glucose (UA) 4+ H (Negative) Urine Blood Large H (Negative) Ur Leukocyte Esterase Large H (Negative) Urine RBC 98 H (0-5) /hpf Urine WBC >182 H (0-5) /hpf Urine WBC Clumps Occasional H (None) /hpf Urine Bacteria Many H (None) /hpf Urine Mucus Rare H (None) /hpf 04/19/23 04/19/23 04/19/23 Range/Units 03:44 05:45 07:03 WBC (3.8-10.6) k/uL Hct (34.0-46.0) % MCV (80.0-100.0) fL MCHC (31.0-37.0) g/dL Neutrophils # (1.3-7.7) k/uL Sodium (137-145) mmol/L Chloride (98-107) mmol/L Carbon Dioxide (22-30) mmol/L BUN (7-17) mg/dL Creatinine (0.52-1.04) mg/dL Glucose (74-99) mg/dL POC Glucose (mg/dL) 419 H 328 H (70-110) mg/dL Osmolality 382 H* (280-301) mosm/kg Plasma Lactic Acid Raudel (0.7-2.0) mmol/L AST (14-36) U/L ALT (4-34) U/L Alkaline Phosphatase (38-126) U/L Troponin I (0.000-0.034) ng/mL Urine Appearance (Clear) Urine Protein (Negative) Urine Glucose (UA) (Negative) Urine Blood (Negative) Ur Leukocyte Esterase (Negative) Urine RBC (0-5) /hpf Urine WBC (0-5) /hpf Urine WBC Clumps (None) /hpf Urine Bacteria (None) /hpf Urine Mucus (None) /hpf 04/19/23 Range/Units 10:34 WBC (3.8-10.6) k/uL Hct (34.0-46.0) % MCV (80.0-100.0) fL MCHC (31.0-37.0) g/dL Neutrophils # (1.3-7.7) k/uL Sodium (137-145) mmol/L Chloride (98-107) mmol/L Carbon Dioxide (22-30) mmol/L BUN (7-17) mg/dL Creatinine (0.52-1.04) mg/dL Glucose (74-99) mg/dL POC Glucose (mg/dL) 258 H (70-110) mg/dL Osmolality (280-301) mosm/kg Plasma Lactic Acid Raudel (0.7-2.0) mmol/L AST (14-36) U/L ALT (4-34) U/L Alkaline Phosphatase (38-126) U/L Troponin I (0.000-0.034) ng/mL Urine Appearance (Clear) Urine Protein (Negative) Urine Glucose (UA) (Negative) Urine Blood (Negative) Ur Leukocyte Esterase (Negative) Urine RBC (0-5) /hpf Urine WBC (0-5) /hpf Urine WBC Clumps (None) /hpf Urine Bacteria (None) /hpf Urine Mucus (None) /hpf
[2023-04-19] MEDS: DEXTROSE 5% IN WATER 1,000 ML IV SCH (12:07)
[2023-04-19] MEDS ORDERED: INSULIN ASPART (NovoLOG) 100 UNIT/ML VIAL SQ SCH (12:30)
[2023-04-19 12:49] LABS: Glucose,Whole Blood 278 mg/dL (70-110)
[2023-04-19] MEDS: INSULIN ASPART (NovoLOG) 100 UNIT/ML VIAL SQ SCH ×3 (12:52→21:34)
[2023-04-19] MEDS: ACETAMINOPHEN TAB 500 MG TAB PO SCH ×2 (13:41→21:32)
[2023-04-19 17:39] LABS: Glucose,Whole Blood 259 mg/dL (70-110)
[2023-04-19 21:32] LABS: Glucose,Whole Blood 241 mg/dL (70-110)
[2023-04-19] MEDS: ASPIRIN 81 MG PO SCH (21:32)
[2023-04-19] MEDS: ATORVASTATIN 20 MG TAB PO SCH (21:32)
[2023-04-19] MEDS: HEPARIN SODIUM,PORCINE 5,000 UNIT/ML 1 ML VIAL SQ SCH (21:34)
[2023-04-20] MEDS: DEXTROSE 5% IN WATER 1,000 ML IV SCH ×2 (00:37→14:48)
[2023-04-20 07:39] LABS: HCT 53.7 % (34.0-46.0); Hypochromasia Marked; MCH 31.6 pg (25.0-35.0); MCHC 29.8 g/dL (31.0-37.0); MCV 105.9 fL (80.0-100.0); Macrocytosis Moderate; Mean Platelet Volume 8.6; Platelet Count 169 k/uL (150-450); RBC 5.07 m/uL (3.80-5.40); WBC 8.8 k/uL (3.8-10.6)
[2023-04-20 07:44] LABS: Glucose,Whole Blood 302 mg/dL (70-110)
[2023-04-20] MEDS: CITALOPRAM HYDROBROMIDE 10 MG TAB PO SCH (07:54)
[2023-04-20] MEDS: CLOPIDOGREL 75 MG TAB PO SCH (07:54)
[2023-04-20] MEDS: TAMSULOSIN 0.4 MG CAP.ER.24H PO SCH (07:54)
[2023-04-20] MEDS: CHOLECALCIFEROL 25 MCG (1000 IU) TABLET PO SCH (07:54)
[2023-04-20] MEDS: FAMOTIDINE 20 MG TAB PO SCH (07:54)
[2023-04-20] MEDS: HEPARIN SODIUM,PORCINE 5,000 UNIT/ML 1 ML VIAL SQ SCH ×2 (07:54→19:39)
[2023-04-20] MEDS: ACETAMINOPHEN TAB 500 MG TAB PO SCH ×3 (07:54→19:38)
[2023-04-20] MEDS: INSULIN ASPART (NovoLOG) 100 UNIT/ML VIAL SQ SCH ×4 (07:55→19:39)
[2023-04-20 07:59] LABS: ALT 135 U/L (4-34); AST 74 U/L (14-36); African American GFR (CKD) 39 (>60 ml/min/1.73 sqM); Albumin 3.3 g/dL (3.5-5.0); Alkaline Phosphatase 150 U/L (38-126); Anion Gap 12 mmol/L; Blood Urea Nitrogen 59 mg/dL (7-17); Calcium 9.5 mg/dL (8.4-10.2); Carbon Dioxide 22 mmol/L (22-30); Glucose 345 mg/dL (74-99); Non-African American GFR(CKD) 34 (>60 ml/min/1.73 sqM); Potassium 3.5 mmol/L (3.5-5.1); Total Bilirubin 0.8 mg/dL (0.2-1.3); Total Protein 6.7 g/dL (6.3-8.2)
[2023-04-20 08:13] LABS: Chloride 131 mmol/L (98-107); Sodium 165 mmol/L (137-145)
[2023-04-20] MEDS ORDERED: INSULIN DETEMIR (LEVEMIR) 100 UNIT/ML SYR SQ SCH (10:32)
[2023-04-20] MEDS: INSULIN DETEMIR (LEVEMIR) 100 UNIT/ML SYR SQ SCH (12:54)
[2023-04-20 13:02] LABS: Glucose,Whole Blood 281 mg/dL (70-110)
--- NOTE | 2023-04-20 15:11 | P.PN ---
Subjective Progress Note Date: 04/20/23 77-year-old female senior living resident with advanced dementia was sent in here because of increased mental status changes and nonverbal. Patient usually is verbal and lately has become nonverbal patient doesn't have any fevers does have mild leukocytosis patient is found to have severe hyponatremia with serum sodium of 164 and clinically appears to be severely dehydrated due to poor by mouth intake. Patient also has lactic acidosis secondary to poor by mouth intake and patient blood sugars are very high. Unable to get any history from the patient. 04/20/2023 Patient is evaluated today in the ER pending a bed on the medical floor. Unable to gather history from the patient due to currently nonverbal. This is not usual for the patient. Sodium remains elevated at 165 and chloride elevated at 1 31. Continues on dextrose infusion and we will consult nephrology for further recommendations. Social work is also following. Patient does not appear to be in any distress or pain. REVIEW OF SYSTEMS: Unable to obtain PHYSICAL EXAMINATION: GENERAL: The patient is alert and nonverbal, not agitated, not in any acute distress. Well developed, well nourished. HEENT: Pupils are round and equally reacting to light. EOMI. No scleral icterus. No conjunctival pallor. Normocephalic, atraumatic. No pharyngeal erythema. No thyromegaly. Mucous membranes CARDIOVASCULAR: S1 and S2 present. No murmurs, rubs, or gallops. PULMONARY: Chest is clear to auscultation, no wheezing or crackles. ABDOMEN: Soft, nontender, nondistended, normoactive bowel sounds. No palpable organomegaly. MUSCULOSKELETAL: No joint swelling or deformity. EXTREMITIES: No cyanosis, clubbing, or pedal edema. NEUROLOGICAL: Patient is awake and alert and not agitated neuro exam is limited by nonverbal state and patient doesn't follow commands much but I believe she can understand. SKIN: No rashes. Assessment and plan Severe hypernatremia: Hypovolemic hypernatremia currently being treated with dextrose 5% in water and will increase to 100 mls/hr and consult nephrology repeat labs in AM -Diabetes mellitus type 2 with hyperglycemia levemir will be increased and pt continues on sliding scale insulin. Continue accuchecks ACHS -Macrocytosis with normal B12 levels -Acute renal failure is secondary to dehydration and intravascular depletion prerenal azotemia, IV fluids as mentioned above, renal function improving.R/O urinary retention bladder scan ordered. -Lactic acidosis secondary to dehydration -Transaminitis nonspecific elevation secondary to severe dehydration and volume depletion improving and will repeat CMP. -Lactic acidosis urine culture pending procalcitonin will be checked. -Acute metabolic acidosis due to hyperchloremia -Abnormal urine: Patient doesn't have any fever and doesn't appear to be septic if patient becomes febrile will consider starting on antibiotics although patient is not a reliable historian to get UTI symptoms patient doesn't have any suprapubic tenderness her confusion is mostly secondary to hyponatremia and dehydration -Mild troponin elevation: Secondary to acute renal failure and dehydration -Advanced dementia mostly vascular, supportive care will use Seroquel as needed at nighttime if she has any agitation episodes which are expected -Do Not Resuscitate Do Not Intubate DVT prophylaxis: Subcutaneous heparin The impression and plan of care has been dictated by Azra Morgan, Nurse Practitioner as directed. Dr. Fernando MD I have performed a history and physical examination and medical decision making of this patient, discussed the same with the dictator, and agree with the dictators assessment and plan as written, documented as a scribe. Based on total visit time, I have performed more than 50% of this visit. Objective - Vital Signs Vital signs: Vital Signs Temp 97.5 F L 04/20/23 13:05 Pulse 70 04/20/23 13:05 Resp 18 04/20/23 13:05 BP 115/73 04/20/23 13:05 Pulse Ox 97 04/20/23 13:05 FiO2 Intake & Output 04/19/23 04/20/23 04/20/23 18:59 06:59 18:59 Output Total 525 Balance -525 Output: Urine 525 - Labs CBC & Chem 7: 04/20/23 06:44 04/20/23 06:44 Labs: Abnormal Lab Results - Last 24 Hours (Table) 04/19/23 04/19/23 04/20/23 Range/Units 17:38 21:30 06:44 Hct (34.0-46.0) % MCV (80.0-100.0) fL MCHC (31.0-37.0) g/dL Sodium 165 H* (137-145) mmol/L Chloride 131 H* (98-107) mmol/L BUN 59 H (7-17) mg/dL Creatinine 1.47 H (0.52-1.04) mg/dL Glucose 345 H (74-99) mg/dL POC Glucose (mg/dL) 259 H 241 H (70-110) mg/dL AST 74 H (14-36) U/L ALT 135 H (4-34) U/L Alkaline Phosphatase 150 H (38-126) U/L Albumin 3.3 L (3.5-5.0) g/dL 04/20/23 04/20/23 04/20/23 Range/Units 06:44 07:43 13:00 Hct 53.7 H (34.0-46.0) % MCV 105.9 H (80.0-100.0) fL MCHC 29.8 L (31.0-37.0) g/dL Sodium (137-145) mmol/L Chloride (98-107) mmol/L BUN (7-17) mg/dL Creatinine (0.52-1.04) mg/dL Glucose (74-99) mg/dL POC Glucose (mg/dL) 302 H 281 H (70-110) mg/dL AST (14-36) U/L ALT (4-34) U/L Alkaline Phosphatase (38-126) U/L Albumin (3.5-5.0) g/dL Assessment and Plan Time with Patient: Less than 30
[2023-04-20 16:56] LABS: Glucose,Whole Blood 195 mg/dL (70-110)
[2023-04-20 19:26] LABS: Glucose,Whole Blood 220 mg/dL (70-110)
[2023-04-20] MEDS: ASPIRIN 81 MG PO SCH (19:38)
[2023-04-20] MEDS: ATORVASTATIN 20 MG TAB PO SCH (19:39)
[2023-04-21] MEDS: DEXTROSE 5% IN WATER 1,000 ML IV SCH ×2 (02:08→07:48)
[2023-04-21] MEDS: INSULIN ASPART (NovoLOG) 100 UNIT/ML VIAL SQ SCH ×4 (06:13→20:48)
[2023-04-21] MEDS: INSULIN DETEMIR (LEVEMIR) 100 UNIT/ML SYR SQ SCH (06:13)
[2023-04-21] MEDS: CLOPIDOGREL 75 MG TAB PO SCH (06:14)
[2023-04-21] MEDS: CITALOPRAM HYDROBROMIDE 10 MG TAB PO SCH (06:14)
[2023-04-21] MEDS: ACETAMINOPHEN TAB 500 MG TAB PO SCH ×3 (06:14→18:11)
[2023-04-21 06:15] LABS: Glucose,Whole Blood 326 mg/dL (70-110)
[2023-04-21] MEDS ORDERED: INSULIN DETEMIR (LEVEMIR) 100 UNIT/ML SYR SQ SCH (07:00)
[2023-04-21] MEDS: TAMSULOSIN 0.4 MG CAP.ER.24H PO SCH (07:45)
[2023-04-21] MEDS: FAMOTIDINE 20 MG TAB PO SCH (07:48)
[2023-04-21] MEDS: HEPARIN SODIUM,PORCINE 5,000 UNIT/ML 1 ML VIAL SQ SCH ×2 (07:48→19:35)
[2023-04-21] MEDS: CHOLECALCIFEROL 25 MCG (1000 IU) TABLET PO SCH (07:48)
--- NOTE | 2023-04-21 10:38 | P.NPCON ---
History of Present Illness - Reason for Consult acute renal failure - History of Present Illness Patient is a 77-year-old female with history of dementia. Patient is admitted to the hospital with worsening mentation and increased weakness. She was noted to have a serum sodium of 164. Currently maintained on D5W. Serum sodium was down to 160 yesterday. We do not have any new labs today. No history of fever chills nausea vomiting or abdominal pain documented. Serum creatinine was 1.47. It is down from 1.69. Blood pressure has not been significantly low except for one documented systolic blood pressure of 94 mmHg. Review of Systems As per HPI Past Medical History Past Medical History: Dementia, Diabetes Mellitus, Hyperlipidemia, Hypertension, Respiratory Disorder Additional Past Medical History / Comment(s): Sarcoidosis, hx of and current kidney stones, chronic UTI's, bladder and bowel incontinence. History of Any Multi-Drug Resistant Organisms: ESBL, MRSA Date of last positivie culture/infection: 04/25/21 ESBL Klebsiella; 12/17/08 MRSA MDRO Source:: ESBL-Urine aspirated-renal pelvis; MRSA-unkonwn Past Surgical History: Cholecystectomy Additional Past Surgical History / Comment(s): Surgery for kidney stones. Past Anesthesia/Blood Transfusion Reactions: No Reported Reaction Additional Psychological History / Comment(s): DEMENTIA. Smoking Status: Former smoker Past Alcohol Use History: None Reported Additional Past Alcohol Use History / Comment(s): Quit smoking in the s. Past Drug Use History: None Reported - Past Family History Mother History Unknown: Yes Family Medical History: No Reported History Father History Unknown: Yes Medications and Allergies Home Medications Medication Instructions Recorded Confirmed Type Atorvastatin [Lipitor] 20 mg PO HS@199904/23/20 04/19/23 History Clopidogrel Bisulfate [Plavix] 75 mg PO DAILY@0704/23/20 04/19/23 History sitaGLIPtin PHOSPHATE [Januvia] 100 mg PO DAILY@0700 04/23/20 04/19/23 History Cholecalciferol [Vitamin D3 (25 50 mcg PO DAILY@0700 08/12/20 04/19/23 History Mcg = 1000 Iu)] Acetaminophen [Tylenol Extra 500 mg PO TID@0700,1300,1900 05/11/21 04/19/23 History Strength] Aspirin 81 mg PO HS@199905/11/21 04/19/23 History Gabapentin [Neurontin] 100 mg PO TID@0700,1300,1900 12/06/21 04/19/23 History LORazepam [Ativan] 0.5 mg PO TID@0700,1300,1900 12/06/21 04/19/23 History Tamsulosin [Flomax] 0.4 mg PO DAILY@0700 12/28/21 04/19/23 History Citalopram Hydrobromide [CeleXA] 10 mg PO DAILY@0704/19/23 04/19/23 History Empagliflozin [Jardiance] 10 mg PO DAILY@0704/19/23 04/19/23 History QUEtiapine [SEROquel] 12.5 mg PO HS@199904/19/23 04/19/23 History Allergies Allergy/AdvReac Type Severity Reaction Status Date / Time No Known Allergies Allergy Verified 04/19/23 06:28 Physical Exam Vitals: Vital Signs Temp Pulse Pulse Resp BP BP Pulse Ox 04/21/23 07:45 97.8 F 56 L 16 119/75 97 04/21/23 04:00 65 16 142/83 98 04/20/23 23:52 62 16 94/64 96 04/20/23 20:00 65 16 115/73 97 04/20/23 15:00 97.4 F L 73 16 119/55 95 04/20/23 13:05 97.5 F L 70 18 115/73 97 Intake and Output 04/20/23 04/21/23 04/21/23 22:59 06:59 14:59 Intake Total 118 0 Output Total 300 Balance 118 -300 Intake: Oral 118 0 Output: Urine 300 Other: Voiding Method External Catheter External Catheter External Catheter Weight 90.718 kg Patient is awake, comfortable, no acute distress. Response to verbal stimuli but does not communicate much. Examination of the heart S1 and S2 Examination of the lungs bilateral breath sounds are heard Abdomen is soft nontender Examination of the lower extremities shows no edema. Results - Lab Results Most recent lab results Calcium 9.5 mg/dL (8.4-10.2) 04/20/23 06:44 04/20/23 06:44 04/20/23 15:22 Assessment and Plan Assessment: 1. Acute kidney injury associated with volume depletion, currently improving 2. Severe hypernatremia slowly improving. Check sodium to avoid rapid correction 3. Dementia 4. Mental status changes associated with severe electrolyte disturbance Plan: Check sodium level now and adjust IV fluids based on repeat labs. Encourage increase oral intake particularly free water next Thank you for the consultation. We will continue to follow the patient with you during her hospitalization
[2023-04-21 11:40] LABS: Glucose,Whole Blood 260 mg/dL (70-110)
[2023-04-21 13:36] VITALS: BMI 33.3
[2023-04-21 14:19] LABS: Basophils % (A) 0 %; Eosinophils # (A) 0.1 k/uL (0-0.7); Eosinophils % (A) 1 %; HCT 47.5 % (34.0-46.0); HGB 15.3 gm/dL (11.4-16.0); Hypochromasia Slight; Lymphocytes % (A) 20 %; MCHC 32.1 g/dL (31.0-37.0); Macrocytosis Slight; Mean Platelet Volume 9.6; Monocytes # (A) 0.3 k/uL (0-1.0); Monocytes % (A) 3 %; Neutrophils # (A) 7.3 k/uL (1.3-7.7); Neutrophils % (A) 74 %; Platelet Count 135 k/uL (150-450); RBC 4.77 m/uL (3.80-5.40); RDW 15.1 % (11.5-15.5); WBC 9.9 k/uL (3.8-10.6)
[2023-04-21 14:21] LABS: MCV 99.6 fL (80.0-100.0)
[2023-04-21 15:38] LABS: ALT 95 U/L (4-34); AST 53 U/L (14-36); African American GFR (CKD) 45 (>60 ml/min/1.73 sqM); Albumin 3.4 g/dL (3.5-5.0); Alkaline Phosphatase 137 U/L (38-126); Anion Gap 13 mmol/L; Blood Urea Nitrogen 49 mg/dL (7-17); Calcium 9.3 mg/dL (8.4-10.2); Carbon Dioxide 20 mmol/L (22-30); Chloride 121 mmol/L (98-107); Glucose 253 mg/dL (74-99); Magnesium 2.4 mg/dL (1.6-2.3); Non-African American GFR(CKD) 39 (>60 ml/min/1.73 sqM); Potassium 3.2 mmol/L (3.5-5.1); Sodium 154 mmol/L (137-145); Total Bilirubin 0.9 mg/dL (0.2-1.3); Total Protein 6.8 g/dL (6.3-8.2)
[2023-04-21 16:24] LABS: Glucose,Whole Blood 202 mg/dL (70-110)
[2023-04-21] MEDS ORDERED: Potassium Replacement Protocol 1 EACH MISC MISCELLANE PRN ×2 (16:47→16:57)
[2023-04-21] MEDS: POTASSIUM CHLORIDE 10 MEQ in WATER FOR INJECTION 1 100ML.BAG IVPB SCH ×4 (17:08→20:48)
--- NOTE | 2023-04-21 17:29 | P.PN ---
Subjective 77-year-old female halfway resident with advanced dementia was sent in here because of increased mental status changes and nonverbal. Patient usually is verbal and lately has become nonverbal patient doesn't have any fevers does have mild leukocytosis patient is found to have severe hyponatremia with serum sodium of 164 and clinically appears to be severely dehydrated due to poor by mouth intake. Patient also has lactic acidosis secondary to poor by mouth intake and patient blood sugars are very high. Unable to get any history from the patient. 04/20/2023 Patient is evaluated today in the ER pending a bed on the medical floor. Unable to gather history from the patient due to currently nonverbal. This is not usual for the patient. Sodium remains elevated at 165 and chloride elevated at 131. Continues on dextrose infusion and we will consult nephrology for further recommendations. Social work is also following. Patient does not appear to be in any distress or pain. 04/21/2023 Patient is still confused, she looks at me but she does not answer questions or follow commands She presents with severe hypernatremia 165 and placed on D5W, currently down to 154 Creatinine 1.6 down to 1.3 today Ativan, gabapentin and Januvia out on hold Patient continued on home dose of aspirin and Plavix Please Aric ya per protocol Case was discussed with bed side nurse Review of systems CONSTITUTIONAL: No fever, no malaise, no fatigue. HEENT: No recent visual problems or hearing problems. Denied any sore throat. CARDIOVASCULAR: No orthopnea, PND, no palpitations, no syncope. PULMONARY: No shortness of breath, no cough, no hemoptysis. GASTROINTESTINAL: No diarrhea, no nausea, no vomiting, no abdominal pain. No rmoactive bowel sounds. NEUROLOGICAL: No headaches, no weakness, no numbness. Discharge Plan Resides With/At Outpatient Services Barriers To Discharge Barriers to Use Support Systems Additional Information Objective - Vital Signs Vital signs: Vital Signs Temp 97.8 F 04/21/23 07:45 Pulse 64 04/21/23 13:08 Resp 16 04/21/23 11:15 BP 132/75 04/21/23 11:15 Pulse Ox 98 04/21/23 11:15 FiO2 Intake & Output 04/20/23 04/21/23 04/21/23 18:59 06:59 18:59 Intake Total 118 0 Output Total 300 Balance 118 -300 Weight 90.718 kg 90.718 kg Intake: Oral 118 0 Output: Urine 300 Other: Voiding Method External Catheter External Catheter External Catheter # Voids 1 # Bowel Movements 1 - Exam -GENERAL: The patient is alert , confused, not in any acute distress. Well developed, well nourished. HEENT: Pupils are round and equally reacting to light. EOMI. No scleral icterus. No conjunctival pallor. Normocephalic, atraumatic. No pharyngeal erythema. No thyromegaly. CARDIOVASCULAR: S1 and S2 present. No murmurs, rubs, or gallops. PULMONARY: Chest is clear to auscultation, no wheezing , no crackles. ABDOMEN: Soft, nontender, nondistended, normoactive bowel sounds. No palpable organomegaly. MUSCULOSKELETAL: No joint swelling or deformity. EXTREMITIES: No cyanosis, clubbing, or pedal edema. NEUROLOGICAL: Gross neurological examination did not reveal any focal deficits. SKIN: No rashes. no petechiae. - Labs CBC & Chem 7: 04/21/23 13:04 04/21/23 14:30 Labs: Abnormal Lab Results - Last 24 Hours (Table) 04/20/23 04/20/23 04/20/23 Range/Units 15:22 15:22 15:22 Sodium 160 H (137-145) mmol/L POC Glucose (mg/dL) (70-110) mg/dL Troponin I 0.035 H* (0.000-0.034) ng/mL Procalcitonin 0.20 H (0.02-0.09) ng/mL 04/20/23 04/20/23 04/21/23 Range/Units 16:50 19:24 06:09 Sodium (137-145) mmol/L POC Glucose (mg/dL) 195 H 220 H 326 H (70-110) mg/dL Troponin I (0.000-0.034) ng/mL Procalcitonin (0.02-0.09) ng/mL 04/21/23 Range/Units 11:38 Sodium (137-145) mmol/L POC Glucose (mg/dL) 260 H (70-110) mg/dL Troponin I (0.000-0.034) ng/mL Procalcitonin (0.02-0.09) ng/mL Assessment and Plan Assessment: Assessment and plan Severe hypernatremia: Hypovolemic hypernatremia currently being treated with dextrose 5% in water and will increase to 100 mls/hr and consult nephrology repeat labs in AM -Diabetes mellitus type 2 with hyperglycemia levemir will be increased and pt continues on sliding scale insulin. Continue accuchecks ACHS -Macrocytosis with normal B12 levels -Acute renal failure is secondary to dehydration and intravascular depletion prerenal azotemia, IV fluids as mentioned above, renal function improving.R/O urinary retention bladder scan ordered. -Lactic acidosis secondary to dehydration -Transaminitis nonspecific elevation secondary to severe dehydration and volume depletion improving and will repeat CMP. -Lactic acidosis urine culture pending procalcitonin will be checked. -Acute metabolic acidosis due to hyperchloremia -Abnormal urine: Patient doesn't have any fever and doesn't appear to be septic if patient becomes febrile will consider starting on antibiotics although patient is not a reliable historian to get UTI symptoms patient doesn't have any suprapubic tenderness her confusion is mostly secondary to hyponatremia and dehydration -Mild troponin elevation: Secondary to acute renal failure and dehydration -Advanced dementia mostly vascular, supportive care will use Seroquel as needed at nighttime if she has any agitation episodes which are expected -Do Not Resuscitate Do Not Intubate
[2023-04-21] MEDS: SODIUM CHLORIDE 0.45% 1,000 ML IV SCH (17:44)
[2023-04-21] MEDS ORDERED: SODIUM CHLORIDE 0.9% 1,000 ML IV SCH (17:45)
[2023-04-21] MEDS: ATORVASTATIN 20 MG TAB PO SCH (19:35)
[2023-04-21] MEDS: ASPIRIN 81 MG PO SCH (19:35)
[2023-04-21 20:41] LABS: Glucose,Whole Blood 154 mg/dL (70-110)
[2023-04-22] MEDS: INSULIN ASPART (NovoLOG) 100 UNIT/ML VIAL SQ SCH ×4 (06:08→20:37)
[2023-04-22] MEDS: TAMSULOSIN 0.4 MG CAP.ER.24H PO SCH (06:08)
[2023-04-22 06:09] LABS: Glucose,Whole Blood 141 mg/dL (70-110)
[2023-04-22] MEDS: INSULIN DETEMIR (LEVEMIR) 100 UNIT/ML SYR SQ SCH (06:11)
[2023-04-22] MEDS: CLOPIDOGREL 75 MG TAB PO SCH (06:11)
[2023-04-22] MEDS: ACETAMINOPHEN TAB 500 MG TAB PO SCH ×3 (06:11→18:25)
[2023-04-22] MEDS: CITALOPRAM HYDROBROMIDE 10 MG TAB PO SCH (06:11)
[2023-04-22] MEDS: FAMOTIDINE 20 MG TAB PO SCH (08:07)
[2023-04-22] MEDS: CHOLECALCIFEROL 25 MCG (1000 IU) TABLET PO SCH (08:07)
[2023-04-22] MEDS: SODIUM CHLORIDE 0.45% 1,000 ML IV SCH ×2 (08:10→20:37)
[2023-04-22] MEDS: HEPARIN SODIUM,PORCINE 5,000 UNIT/ML 1 ML VIAL SQ SCH ×2 (08:10→20:36)
--- NOTE | 2023-04-22 11:08 | P.PN ---
Subjective Patient is seen for follow-up for hyeronatremia. She has underlying dementia. Patient was initially maintained on D5W and it was discontinued to half-normal saline yesterday. Sodium is pending from today. No significant complaints. Mentation may be slightly better than on admission. Objective - Vital Signs Vital signs: Vital Signs Temp 97.6 F 04/22/23 08:05 Pulse 52 L 04/22/23 08:05 Resp 16 04/22/23 08:05 BP 137/83 04/22/23 08:05 Pulse Ox 99 04/22/23 08:05 FiO2 Intake & Output 04/21/23 04/22/23 04/22/23 18:59 06:59 18:59 Intake Total 0 Output Total 350 300 Balance -350 -300 Weight 90.718 kg Intake: Oral 0 Output: Urine 350 300 Other: Voiding Method External Catheter External Catheter External Catheter # Voids 1 1 # Bowel Movements 1 - Exam Patient is awake, comfortable, no acute distress. Response to verbal stimuli but does not communicate much. Examination of the heart S1 and S2 Examination of the lungs bilateral breath sounds are heard Abdomen is soft nontender Examination of the lower extremities shows no edema. - Labs CBC & Chem 7: 04/21/23 13:04 04/21/23 22:34 Labs: Abnormal Lab Results - Last 24 Hours (Table) 04/21/23 04/21/23 04/21/23 Range/Units 11:38 13:04 14:30 Hct 47.5 H (34.0-46.0) % Plt Count 135 L (150-450) k/uL Sodium 154 H (137-145) mmol/L Potassium 3.2 L (3.5-5.1) mmol/L Chloride 121 H (98-107) mmol/L Carbon Dioxide 20 L (22-30) mmol/L BUN 49 H (7-17) mg/dL Creatinine 1.30 H (0.52-1.04) mg/dL Glucose 253 H (74-99) mg/dL POC Glucose (mg/dL) 260 H (70-110) mg/dL Magnesium 2.4 H (1.6-2.3) mg/dL AST 53 H (14-36) U/L ALT 95 H (4-34) U/L Alkaline Phosphatase 137 H (38-126) U/L Albumin 3.4 L (3.5-5.0) g/dL 04/21/23 04/21/23 04/21/23 Range/Units 16:22 20:40 22:34 Hct (34.0-46.0) % Plt Count (150-450) k/uL Sodium 152 H (137-145) mmol/L Potassium (3.5-5.1) mmol/L Chloride (98-107) mmol/L Carbon Dioxide (22-30) mmol/L BUN (7-17) mg/dL Creatinine (0.52-1.04) mg/dL Glucose (74-99) mg/dL POC Glucose (mg/dL) 202 H 154 H (70-110) mg/dL Magnesium (1.6-2.3) mg/dL AST (14-36) U/L ALT (4-34) U/L Alkaline Phosphatase (38-126) U/L Albumin (3.5-5.0) g/dL 04/22/23 Range/Units 06:08 Hct (34.0-46.0) % Plt Count (150-450) k/uL Sodium (137-145) mmol/L Potassium (3.5-5.1) mmol/L Chloride (98-107) mmol/L Carbon Dioxide (22-30) mmol/L BUN (7-17) mg/dL Creatinine (0.52-1.04) mg/dL Glucose (74-99) mg/dL POC Glucose (mg/dL) 141 H (70-110) mg/dL Magnesium (1.6-2.3) mg/dL AST (14-36) U/L ALT (4-34) U/L Alkaline Phosphatase (38-126) U/L Albumin (3.5-5.0) g/dL Assessment and Plan Assessment: 1. Acute kidney injury associated with volume depletion, currently improving 2. Severe hypernatremia slowly improving. Check sodium at least every 6-8 hours to avoid rapid correction 3. Dementia 4. Mental status changes associated with severe electrolyte disturbance Plan: continue half-normal saline Check sodium stat
[2023-04-22 11:49] LABS: Glucose,Whole Blood 133 mg/dL (70-110)
[2023-04-22 16:41] LABS: Glucose,Whole Blood 133 mg/dL (70-110)
[2023-04-22 20:01] LABS: Glucose,Whole Blood 122 mg/dL (70-110)
--- NOTE | 2023-04-22 20:24 | P.PN ---
Subjective 77-year-old female [facility] resident with advanced dementia was sent in here because of increased mental status changes and nonverbal. Patient usually is verbal and lately has become nonverbal patient doesn't have any fevers does have mild leukocytosis patient is found to have severe hyponatremia with serum sodium of 164 and clinically appears to be severely dehydrated due to poor by mouth intake. Patient also has lactic acidosis secondary to poor by mouth intake and patient blood sugars are very high. Unable to get any history from the patient. 04/20/2023 Patient is evaluated today in the ER pending a bed on the medical floor. Unable to gather history from the patient due to currently nonverbal. This is not usual for the patient. Sodium remains elevated at 165 and chloride elevated at 131. Continues on dextrose infusion and we will consult nephrology for further recommendations. Social work is also following. Patient does not appear to be in any distress or pain. 04/21/2023 Patient is still confused, she looks at me but she does not answer questions or follow commands She presents with severe hypernatremia 165 and placed on D5W, currently down to 154 Creatinine 1.6 down to 1.3 today Ativan, gabapentin and Januvia out on hold Patient continued on home dose of aspirin and Plavix Please Aric ya per protocol Case was discussed with bed side nurse 04/22/2023 Patient remains confused On half-normal saline Patient is not eating Urine culture is growing gram-negative bacilli started on Rocephin Infectious disease consult Objective - Vital Signs Vital signs: Vital Signs Temp 97.6 F 04/22/23 08:05 Pulse 59 L 04/22/23 11:10 Resp 16 04/22/23 11:10 BP 100/53 04/22/23 11:10 Pulse Ox 98 04/22/23 11:10 FiO2 Intake & Output 04/21/23 04/22/23 04/22/23 18:59 06:59 18:59 Intake Total 0 Output Total 350 300 300 Balance -350 -300 -300 Weight 90.718 kg Intake: Oral 0 Output: Urine 350 300 300 Other: Voiding Method External Catheter External Catheter External Catheter # Voids 1 1 # Bowel Movements 1 1 - Labs CBC & Chem 7: 04/21/23 13:04 04/22/23 11:14 Labs: Abnormal Lab Results - Last 24 Hours (Table) 04/21/23 04/21/2324 Range/Units 13:04 14:30 16:22 Hct 47.5 H (34.0-46.0) % Plt Count 135 L (150-450) k/uL Sodium 154 H (137-145) mmol/L Potassium 3.2 L (3.5-5.1) mmol/L Chloride 121 H (98-107) mmol/L Carbon Dioxide 20 L (22-30) mmol/L BUN 49 H (7-17) mg/dL Creatinine 1.30 H (0.52-1.04) mg/dL Glucose 253 H (74-99) mg/dL POC Glucose (mg/dL) 202 H (70-110) mg/dL Magnesium 2.4 H (1.6-2.3) mg/dL AST 53 H (14-36) U/L ALT 95 H (4-34) U/L Alkaline Phosphatase 137 H (38-126) U/L Albumin 3.4 L (3.5-5.0) g/dL 04/21/23 04/21/23 04/22/23 Range/Units 20:40 22:34 06:08 Hct (34.0-46.0) % Plt Count (150-450) k/uL Sodium 152 H (137-145) mmol/L Potassium (3.5-5.1) mmol/L Chloride (98-107) mmol/L Carbon Dioxide (22-30) mmol/L BUN (7-17) mg/dL Creatinine (0.52-1.04) mg/dL Glucose (74-99) mg/dL POC Glucose (mg/dL) 154 H 141 H (70-110) mg/dL Magnesium (1.6-2.3) mg/dL AST (14-36) U/L ALT (4-34) U/L Alkaline Phosphatase (38-126) U/L Albumin (3.5-5.0) g/dL 04/22/23 04/22/23 Range/Units 11:14 11:48 Hct (34.0-46.0) % Plt Count (150-450) k/uL Sodium 151 H (137-145) mmol/L Potassium (3.5-5.1) mmol/L Chloride (98-107) mmol/L Carbon Dioxide (22-30) mmol/L BUN (7-17) mg/dL Creatinine (0.52-1.04) mg/dL Glucose (74-99) mg/dL POC Glucose (mg/dL) 133 H (70-110) mg/dL Magnesium (1.6-2.3) mg/dL AST (14-36) U/L ALT (4-34) U/L Alkaline Phosphatase (38-126) U/L Albumin (3.5-5.0) g/dL Assessment and Plan Assessment: Assessment and plan Severe hypernatremia: Hypovolemic hypernatremia currently being treated with dextrose 5% in water and will increase to 100 mls/hr and consult nephrology repeat labs in AM -Diabetes mellitus type 2 with hyperglycemia levemir will be increased and pt continues on sliding scale insulin. Continue accuchecks ACHS -Macrocytosis with normal B12 levels -Acute renal failure is secondary to dehydration and intravascular depletion prerenal azotemia, IV fluids as mentioned above, renal function improving.R/O urinary retention bladder scan ordered. -Lactic acidosis secondary to dehydration -Transaminitis nonspecific elevation secondary to severe dehydration and volume depletion improving and will repeat CMP. -Lactic acidosis urine culture pending procalcitonin will be checked. -Acute metabolic acidosis due to hyperchloremia -Abnormal urine: Patient doesn't have any fever and doesn't appear to be septic if patient becomes febrile will consider starting on antibiotics although patient is not a reliable historian to get UTI symptoms patient doesn't have any suprapubic tenderness her confusion is mostly secondary to hyponatremia and dehydration -Mild troponin elevation: Secondary to acute renal failure and dehydration -Advanced dementia mostly vascular, supportive care will use Seroquel as needed at nighttime if she has any agitation episodes which are expected -Do Not Resuscitate Do Not Intubate - Acute tract infection, continue antibiotic. Infectious disease consult
[2023-04-22] MEDS: ASPIRIN 81 MG PO SCH (20:37)
[2023-04-22] MEDS: ATORVASTATIN 20 MG TAB PO SCH (20:37)
[2023-04-23 06:18] LABS: Glucose,Whole Blood 106 mg/dL (70-110)
[2023-04-23 06:33] LABS: Appearance,Urine Turbid (Clear); Bacteria,Urine Many /hpf; Bilirubin,Urine Negative (Negative); Blood,Urine Large (Negative); Color,Urine Light Orange; Glucose,Urine (UA) Negative (Negative); Ketones,Urine Negative (Negative); Leukocyte Esterase,Urine Large (Negative); Mucus,Urine Rare /hpf; Nitrite,Urine Positive (Negative); Protein,Urine 2+ (Negative); RBC,Urine >182 /hpf (0-5); Specific Gravity,Urine 1.014 (1.001-1.035); Squamous Epithelial Cell,Urine 1 /hpf (0-4); Uric Acid Crystals,Urine Moderate /hpf; Urobilinogen,Urine <2.0 mg/dL (<2.0); WBC,Urine >182 /hpf (0-5)
[2023-04-23] MEDS: ACETAMINOPHEN TAB 500 MG TAB PO SCH ×3 (06:57→18:22)
[2023-04-23] MEDS: CLOPIDOGREL 75 MG TAB PO SCH (06:57)
[2023-04-23] MEDS: INSULIN DETEMIR (LEVEMIR) 100 UNIT/ML SYR SQ SCH (06:57)
[2023-04-23] MEDS: CITALOPRAM HYDROBROMIDE 10 MG TAB PO SCH (06:57)
[2023-04-23] MEDS: TAMSULOSIN 0.4 MG CAP.ER.24H PO SCH (06:58)
[2023-04-23] MEDS: INSULIN ASPART (NovoLOG) 100 UNIT/ML VIAL SQ SCH ×4 (06:58→21:53)
[2023-04-23] MEDS: HEPARIN SODIUM,PORCINE 5,000 UNIT/ML 1 ML VIAL SQ SCH ×2 (09:52→21:52)
[2023-04-23] MEDS: FAMOTIDINE 20 MG TAB PO SCH (10:01)
[2023-04-23] MEDS: SODIUM CHLORIDE 0.45% 1,000 ML IV SCH (10:01)
[2023-04-23] MEDS: CHOLECALCIFEROL 25 MCG (1000 IU) TABLET PO SCH (10:02)
[2023-04-23 10:48] LABS: Basophils # (A) 0.1 k/uL (0-0.2); Basophils % (A) 2 %; Eosinophils # (A) 0.2 k/uL (0-0.7); Eosinophils % (A) 2 %; HCT 53.1 % (34.0-46.0); HGB 16.1 gm/dL (11.4-16.0); Hypochromasia Marked; Lymphocytes # (A) 1.6 k/uL (1.0-4.8); Lymphocytes % (A) 22 %; MCH 32.8 pg (25.0-35.0); MCHC 30.2 g/dL (31.0-37.0); MCV 108.4 fL (80.0-100.0); Macrocytosis Marked; Mean Platelet Volume 10.2; Monocytes # (A) 0.4 k/uL (0-1.0); Monocytes % (A) 5 %; Neutrophils # (A) 4.9 k/uL (1.3-7.7); Neutrophils % (A) 68 %; Platelet Count 134 k/uL (150-450); RDW 14.9 % (11.5-15.5); WBC 7.3 k/uL (3.8-10.6)
[2023-04-23 11:31] LABS: Glucose,Whole Blood 122 mg/dL (70-110)
[2023-04-23 13:11] LABS: African American GFR (CKD) 63 (>60 ml/min/1.73 sqM); Anion Gap 14 mmol/L; Blood Urea Nitrogen 33 mg/dL (7-17); Calcium 9.2 mg/dL (8.4-10.2); Carbon Dioxide 14 mmol/L (22-30); Chloride 127 mmol/L (98-107); Glucose 140 mg/dL (74-99); Non-African American GFR(CKD) 55 (>60 ml/min/1.73 sqM); Sodium 155 mmol/L (137-145)
[2023-04-23 13:12] LABS: Magnesium 2.3 mg/dL (1.6-2.3); Potassium 3.9 mmol/L (3.5-5.1)
--- NOTE | 2023-04-23 13:12 | P.PN ---
Subjective Patient is seen in follow-up for acute kidney injury and hypernatremia. Currently on half-normal saline. Poor historian. Vital signs are stable. General: No acute distress. HEENT: Head exam is unremarkable. LUNGS: No audible rhonchi or wheezes. HEART: Rate and Rhythm are regular. ABDOMEN: Nontender. EXTREMITITES: No edema. Objective - Vital Signs Vital signs: Vital Signs Temp 98.2 F 04/23/23 09:51 Pulse 51 L 04/23/23 11:34 Resp 15 04/23/23 11:34 BP 121/56 04/23/23 11:34 Pulse Ox 99 04/23/23 11:34 FiO2 Intake & Output 04/22/23 04/23/23 04/23/23 18:59 06:59 18:59 Intake Total 0 Output Total 400 400 200 Balance -400 -400 -200 Intake: Oral 0 Output: Urine 400 400 200 Other: Voiding Method External Catheter External Catheter External Catheter # Bowel Movements 1 - Labs CBC & Chem 7: 04/23/23 07:46 04/22/23 11:14 Labs: Abnormal Lab Results - Last 24 Hours (Table) 04/22/23 04/22/23 04/23/23 Range/Units 16:39 19:59 06:15 Hgb (11.4-16.0) gm/dL Hct (34.0-46.0) % MCV (80.0-100.0) fL MCHC (31.0-37.0) g/dL Plt Count (150-450) k/uL Macrocytosis POC Glucose (mg/dL) 133 H 122 H (70-110) mg/dL Urine Appearance Turbid H (Clear) Urine Protein 2+ H (Negative) Urine Blood Large H (Negative) Urine Nitrite Positive H (Negative) Ur Leukocyte Esterase Large H (Negative) Urine RBC >182 H (0-5) /hpf Urine WBC >182 H (0-5) /hpf Uric Acid Crystals Moderate H (None) /hpf Urine Bacteria Many H (None) /hpf Urine Mucus Rare H (None) /hpf 04/23/23 04/23/23 Range/Units 07:46 11:20 Hgb 16.1 H (11.4-16.0) gm/dL Hct 53.1 H (34.0-46.0) % MCV 108.4 H D (80.0-100.0) fL MCHC 30.2 L (31.0-37.0) g/dL Plt Count 134 L (150-450) k/uL Macrocytosis Marked A POC Glucose (mg/dL) 122 H (70-110) mg/dL Urine Appearance (Clear) Urine Protein (Negative) Urine Blood (Negative) Urine Nitrite (Negative) Ur Leukocyte Esterase (Negative) Urine RBC (0-5) /hpf Urine WBC (0-5) /hpf Uric Acid Crystals (None) /hpf Urine Bacteria (None) /hpf Urine Mucus (None) /hpf Microbiology - Last 24 Hours (Table) 04/20/23 15:49 Urine Culture - Final Urine,Clean Catch Proteus mirabilis Klebsiella pneumoniae Assessment and Plan Plan: Assessment: 1. Acute kidney injury secondary to vasomotor nephropathy from poor intake. Creatinine 1.69 on admission and is down to 1.3. 2. Hypernatremia from lack of oral water intake. Improving with D5W. 3. Hypokalemia from poor intake. On replacement protocol. 4. Diabetes mellitus. 5. Dementia. 6. Proteus and Klebsiella UTI on antibiotics. Plan: Maintain half-normal saline. Follow-up morning labs. Replace electrolytes as needed.
--- NOTE | 2023-04-23 14:04 | P.PN ---
Subjective 77-year-old female halfway resident with advanced dementia was sent in here because of increased mental status changes and nonverbal. Patient usually is verbal and lately has become nonverbal patient doesn't have any fevers does have mild leukocytosis patient is found to have severe hyponatremia with serum sodium of 164 and clinically appears to be severely dehydrated due to poor by mouth intake. Patient also has lactic acidosis secondary to poor by mouth intake and patient blood sugars are very high. Unable to get any history from the patient. 04/20/2023 Patient is evaluated today in the ER pending a bed on the medical floor. Unable to gather history from the patient due to currently nonverbal. This is not usual for the patient. Sodium remains elevated at 165 and chloride elevated at 131. Continues on dextrose infusion and we will consult nephrology for further recommendations. Social work is also following. Patient does not appear to be in any distress or pain. 04/21/2023 Patient is still confused, she looks at me but she does not answer questions or follow commands She presents with severe hypernatremia 165 and placed on D5W, currently down to 154 Creatinine 1.6 down to 1.3 today Ativan, gabapentin and Januvia out on hold Patient continued on home dose of aspirin and Plavix Please Aric ya per protocol Case was discussed with bed side nurse 04/22/2023 Patient remains confused On half-normal saline Patient is not eating Urine culture is growing gram-negative bacilli started on Rocephin Infectious disease consult 04/23/2023 Patient for the first time today trying to talk with one towards and she is t rying to follow simple commands although she does not accomplish perfectly. Her mentation start to improve for the first time over the last 2-3 days She remains on half-normal saline 75 mL/h. Sodium still elevated 155 creatinine back to the first range 0.9 Also her urine culture is positive for gram-negative bacilli 2, patient is started on Invanz. We will check a bladder scan Glucose is controlled Platelets slightly trended 188 down to 134 today. We'll keep monitoring while patient was subcu heparin Her Ativan gabapentin and Januvia are on hold and may be discontinued upon discharge Remains on aspirin 81 mg. Patient still not eating I discussed with bed side nurse to wait till tomorrow to do a swallow evaluation as her mentation start improving Objective - Vital Signs Vital signs: Vital Signs Temp 98.2 F 04/23/23 09:51 Pulse 51 L 04/23/23 11:34 Resp 15 04/23/23 11:34 BP 121/56 04/23/23 11:34 Pulse Ox 99 04/23/23 11:34 FiO2 Intake & Output 04/22/23 04/23/23 04/23/23 18:59 06:59 18:59 Intake Total 0 Output Total 400 400 200 Balance -400 -400 -200 Intake: Oral 0 Output: Urine 400 400 200 Other: Voiding Method External Catheter External Catheter External Catheter # Bowel Movements 1 - Exam -GENERAL: The patient is alert , confused, not in any acute distress. Well developed, well nourished. HEENT: Pupils are round and equally reacting to light. EOMI. No scleral icterus. No conjunctival pallor. Normocephalic, atraumatic. No pharyngeal erythema. No thyromegaly. CARDIOVASCULAR: S1 and S2 present. No murmurs, rubs, or gallops. PULMONARY: Chest is clear to auscultation, no wheezing , no crackles. ABDOMEN: Soft, nontender, nondistended, normoactive bowel sounds. No palpable or ganomegaly. MUSCULOSKELETAL: No joint swelling or deformity. EXTREMITIES: No cyanosis, clubbing, or pedal edema. NEUROLOGICAL: Gross neurological examination did not reveal any focal deficits. SKIN: No rashes. no petechiae. - Labs CBC & Chem 7: 04/23/23 07:46 04/23/23 12:22 Labs: Abnormal Lab Results - Last 24 Hours (Table) 04/22/23 04/22/23 04/23/23 Range/Units 16:39 19:59 06:15 Hgb (11.4-16.0) gm/dL Hct (34.0-46.0) % MCV (80.0-100.0) fL MCHC (31.0-37.0) g/dL Plt Count (150-450) k/uL Macrocytosis Sodium (137-145) mmol/L Chloride (98-107) mmol/L Carbon Dioxide (22-30) mmol/L BUN (7-17) mg/dL Glucose (74-99) mg/dL POC Glucose (mg/dL) 133 H 122 H (70-110) mg/dL Urine Appearance Turbid H (Clear) Urine Protein 2+ H (Negative) Urine Blood Large H (Negative) Urine Nitrite Positive H (Negative) Ur Leukocyte Esterase Large H (Negative) Urine RBC >182 H (0-5) /hpf Urine WBC >182 H (0-5) /hpf Uric Acid Crystals Moderate H (None) /hpf Urine Bacteria Many H (None) /hpf Urine Mucus Rare H (None) /hpf 04/23/23 04/23/23 04/23/23 Range/Units 07:46 11:20 12:22 Hgb 16.1 H (11.4-16.0) gm/dL Hct 53.1 H (34.0-46.0) % MCV 108.4 H D (80.0-100.0) fL MCHC 30.2 L (31.0-37.0) g/dL Plt Count 134 L (150-450) k/uL Macrocytosis Marked A Sodium 155 H (137-145) mmol/L Chloride 127 H (98-107) mmol/L Carbon Dioxide 14 L (22-30) mmol/L BUN 33 H (7-17) mg/dL Glucose 140 H (74-99) mg/dL POC Glucose (mg/dL) 122 H (70-110) mg/dL Urine Appearance (Clear) Urine Protein (Negative) Urine Blood (Negative) Urine Nitrite (Negative) Ur Leukocyte Esterase (Negative) Urine RBC (0-5) /hpf Urine WBC (0-5) /hpf Uric Acid Crystals (None) /hpf Urine Bacteria (None) /hpf Urine Mucus (None) /hpf Microbiology - Last 24 Hours (Table) 04/20/23 15:49 Urine Culture - Final Urine,Clean Catch Proteus mirabilis Klebsiella pneumoniae Assessment and Plan Assessment: Assessment and plan Severe hypernatremia: Hypovolemic hypernatremia currently being treated with half-normal saline at 75 mls/hr and consult nephrology repeat labs in AM -acute urinary tract infection on Invanz -Diabetes mellitus type 2 with hyperglycemia levemir will be increased and pt continues on sliding scale insulin. Continue accuchecks ACHS -Macrocytosis with normal B12 levels -Acute renal failure is secondary to dehydration and intravascular depletion prerenal azotemia, IV fluids as mentioned above, renal function improving.R/O urinary retention bladder scan ordered. -Lactic acidosis secondary to dehydration -Transaminitis nonspecific elevation secondary to severe dehydration and volume depletion improving and will repeat CMP. -Lactic acidosis urine culture pending procalcitonin will be checked. -Acute metabolic acidosis due to hyperchloremia -Abnormal urine: Patient doesn't have any fever and doesn't appear to be septic if patient becomes febrile will consider starting on antibiotics although patient is not a reliable historian to get UTI symptoms patient doesn't have any suprapubic tenderness her confusion is mostly secondary to hyponatremia and dehydration -Mild troponin elevation: Secondary to acute renal failure and dehydration -Advanced dementia mostly vascular, supportive care will use Seroquel as needed at nighttime if she has any agitation episodes which are expected -Do Not Resuscitate Do Not Intubate - Acute tract infection, continue antibiotic. Infectious disease consult
[2023-04-23] MEDS: ERTAPENEM 1 GM in SODIUM CHLORIDE 0.9% 50 ML IVPB SCH (14:15)
[2023-04-23] MEDS ORDERED: SODIUM BICARB 8.4% 50 ML SYR (1 MEQ/ML) IV STA (15:51)
[2023-04-23] MEDS: DEXTROSE 5% IN WATER 1,000 ML IV SCH ×2 (16:06→23:45)
[2023-04-23] MEDS ORDERED: SODIUM BICARB 8.4% 50 ML SYR (1 MEQ/ML) ONE (16:08)
[2023-04-23 16:13] LABS: Glucose,Whole Blood 138 mg/dL (70-110)
[2023-04-23 20:12] LABS: Glucose,Whole Blood 191 mg/dL (70-110)
[2023-04-23] MEDS: ATORVASTATIN 20 MG TAB PO SCH (21:56)
[2023-04-23] MEDS: ASPIRIN 81 MG PO SCH (21:56)
--- NOTE | 2023-04-23 22:03 | P.CONS ---
History of Present Illness - Reason for Consult Consult date: 04/23/23 UTI Requesting physician: Cruzito E Sheet - Chief Complaint Mental status changes x few days - History of Present Illness Patient is a 77-year-old female with a past medical history significant for diabetes mellitus hypertension hyperlipidemia dementia the patient also with history of recurrent UTI has been brought to the hospital about 5 days ago for evaluation of mental status changes and hyperglycemia and the patient was minimally responsive prior to leaving the alf on presentation to the hospital patient was afebrile and no fever has been recorded during this hospital stay patient was not hypotensive or hypoxic and no need for supplemental oxygen did have a white count of 11.1 admission subsequent normalized creatinine has been normal there was evidence of mild elevated procalcitonin 0.20 patient did have a positive UA and more than 1-2 WBC and large leukocyte Estrace patient has been treated with Rocephin with urine culture now showing ESBL Klebsiella that has prompted this infectious disease consultation patient is currently breathing comfortable on room air patient is awake however I do have underlying dementia so not a very good historian nonspecific denies any headache no chest pain or cough no abdominal pain and no diarrhea has been reported Review of Systems Positive points has been mentioned in HPI complete review could not be obtained because of his underlying mental status Past Medical History Past Medical History: Dementia, Diabetes Mellitus, Hyperlipidemia, Hypertension, Respiratory Disorder Additional Past Medical History / Comment(s): Sarcoidosis, hx of and current kidney stones, chronic UTI's, bladder and bowel incontinence. History of Any Multi-Drug Resistant Organisms: ESBL, MRSA Year Discovered:: 04/25/21 ESBL Klebsiella; 12/17/08 MRSA MDRO Source:: ESBL-Urine aspirated-renal pelvis; MRSA-unkonwn Past Surgical History: Cholecystectomy Additional Past Surgical History / Comment(s): Surgery for kidney stones. Past Anesthesia/Blood Transfusion Reactions: No Reported Reaction Additional Psychological History / Comment(s): DEMENTIA. Smoking Status: Former smoker Past Alcohol Use History: None Reported Additional Past Alcohol Use History / Comment(s): Quit smoking in the 1970's. Past Drug Use History: None Reported - Past Family History Mother History Unknown: Yes Family Medical History: No Reported History Father History Unknown: Yes Medications and Allergies Home Medications Medication Instructions Recorded Confirmed Type Atorvastatin [Lipitor] 20 mg PO HS@199904/23/20 04/19/23 History Clopidogrel Bisulfate [Plavix] 75 mg PO DAILY@69904/23/20 04/19/23 History sitaGLIPtin PHOSPHATE [Januvia] 100 mg PO DAILY@69904/23/20 04/19/23 History Cholecalciferol [Vitamin D3 (25 50 mcg PO DAILY@69908/12/20 04/19/23 History Mcg = 1000 Iu)] Acetaminophen [Tylenol Extra 500 mg PO TID@0700,1300,1900 05/11/21 04/19/23 History Strength] Aspirin 81 mg PO HS@199905/11/21 04/19/23 History Tamsulosin [Flomax] 0.4 mg PO DAILY@69912/28/21 04/19/23 History Citalopram Hydrobromide [CeleXA] 10 mg PO DAILY@69904/19/23 04/19/23 History Empagliflozin [Jardiance] 10 mg PO DAILY@69904/19/23 04/19/23 History QUEtiapine [SEROquel] 12.5 mg PO HS@199904/19/23 04/19/23 History Allergies Allergy/AdvReac Type Severity Reaction Status Date / Time No Known Allergies Allergy Verified 04/19/23 06:28 Physical Exam Vitals: Vital Signs Temp Pulse Resp BP Pulse Ox 04/23/23 10:07 58 L 04/23/23 09:51 98.2 F 58 L 15 144/62 99 04/23/23 04:00 71 16 122/69 99 04/23/23 02:00 59 L 16 04/23/23 00:00 59 L 16 128/56 98 04/22/23 20:00 98.3 F 55 L 14 119/72 98 04/22/23 15:41 97.4 F L 57 L 16 122/76 97 04/22/23 13:22 59 L 04/22/23 11:10 59 L 16 100/53 98 Intake and Output 04/22/23 04/23/23 04/23/23 22:59 06:59 14:59 Output Total 100 400 Balance -100 -400 Output: Urine 100 400 Other: Voiding Method External Catheter External Catheter External Catheter GENERAL DESCRIPTION: Elderly female lying in bed, no distress. No tachypnea or accessory muscle of respiration use. HEENT: Shows Pallor , no scleral icterus. Oral mucous membrane is dry. NECK: Trachea central, no thyromegaly. LUNGS: Unlabored breathing. Clear to auscultation anteriorly. No wheeze or crackle. HEART: S1, S2, regular rate and rhythm. No loud murmur ABDOMEN: Soft, no tenderness , EXTREMITIES: No edema of feet. SKIN: No rash, no masses palpable. NEUROLOGICAL: The patient is awake, but nonverbal orientation could not determine Results CBC & Chem 7: 04/23/23 07:46 04/25/23 08:19 Labs: Abnormal Lab Results - Last 24 Hours (Table) 04/22/23 04/22/23 04/22/23 Range/Units 11:14 11:48 16:39 Sodium 151 H (137-145) mmol/L POC Glucose (mg/dL) 133 H 133 H (70-110) mg/dL Urine Appearance (Clear) Urine Protein (Negative) Urine Blood (Negative) Urine Nitrite (Negative) Ur Leukocyte Esterase (Negative) Urine RBC (0-5) /hpf Urine WBC (0-5) /hpf Uric Acid Crystals (None) /hpf Urine Bacteria (None) /hpf Urine Mucus (None) /hpf 04/22/23 04/23/23 Range/Units 19:59 06:15 Sodium (137-145) mmol/L POC Glucose (mg/dL) 122 H (70-110) mg/dL Urine Appearance Turbid H (Clear) Urine Protein 2+ H (Negative) Urine Blood Large H (Negative) Urine Nitrite Positive H (Negative) Ur Leukocyte Esterase Large H (Negative) Urine RBC >182 H (0-5) /hpf Urine WBC >182 H (0-5) /hpf Uric Acid Crystals Moderate H (None) /hpf Urine Bacteria Many H (None) /hpf Urine Mucus Rare H (None) /hpf Microbiology - Last 24 Hours (Table) 04/20/23 15:49 Urine Culture - Preliminary Urine,Clean Catch Gram Neg Bacilli Gram Neg Bacilli#2 Assessment and Plan (1) Infection with ESBL Klebsiella oxytoca Status: Acute Code(s): A49.8 - OTHER BACTERIAL INFECTIONS OF UNSPECIFIED SITE; Z16.12 - EXTENDED SPECTRUM BETA LACTAMASE (ESBL) RESISTANCE SNOMED Code(s): 6959242268 (2) UTI (urinary tract infection) Status: Acute Code(s): N39.0 - URINARY TRACT INFECTION, SITE NOT SPECIFIED SNOMED Code(s): 31293295 Plan: 1patient presented to hospital with weakness mental status changes in this patient noted to have significantly positive UA with urine culture now finalized with ESBL Klebsiella 2-discontinue Rocephin 3-start the patient on Invanz 1 g daily We will follow on clinical condition and cultures to further adjust medication if needed Thank you for this consultation we will follow the patient along with you Dictation was produced using [employer] dictation software. please excuse any grammatical, word or spelling errors. Time with Patient: Greater than 30
[2023-04-24 05:52] LABS: Glucose,Whole Blood 184 mg/dL (70-110)
[2023-04-24] MEDS: CITALOPRAM HYDROBROMIDE 10 MG TAB PO SCH (05:58)
[2023-04-24] MEDS: ACETAMINOPHEN TAB 500 MG TAB PO SCH ×3 (05:58→18:46)
[2023-04-24] MEDS: CLOPIDOGREL 75 MG TAB PO SCH (05:58)
[2023-04-24] MEDS: INSULIN DETEMIR (LEVEMIR) 100 UNIT/ML SYR SQ SCH (05:59)
[2023-04-24] MEDS: TAMSULOSIN 0.4 MG CAP.ER.24H PO SCH (05:59)
[2023-04-24] MEDS: INSULIN ASPART (NovoLOG) 100 UNIT/ML VIAL SQ SCH ×4 (06:38→21:33)
[2023-04-24] MEDS: HEPARIN SODIUM,PORCINE 5,000 UNIT/ML 1 ML VIAL SQ SCH ×2 (07:51→21:34)
[2023-04-24] MEDS: CHOLECALCIFEROL 25 MCG (1000 IU) TABLET PO SCH (07:54)
[2023-04-24] MEDS: FAMOTIDINE 20 MG TAB PO SCH (07:54)
[2023-04-24 09:53] LABS: African American GFR (CKD) 65 (>60 ml/min/1.73 sqM); Anion Gap 6 mmol/L; Blood Urea Nitrogen 25 mg/dL (7-17); Calcium 8.8 mg/dL (8.4-10.2); Carbon Dioxide 29 mmol/L (22-30); Chloride 114 mmol/L (98-107); Glucose 240 mg/dL (74-99); Magnesium 2.2 mg/dL (1.6-2.3); Non-African American GFR(CKD) 57 (>60 ml/min/1.73 sqM); Potassium 2.8 mmol/L (3.5-5.1); Sodium 149 mmol/L (137-145)
[2023-04-24] MEDS ORDERED: Potassium Replacement Protocol 1 EACH MISC MISCELLANE PRN (10:07)
[2023-04-24] MEDS: POTASSIUM CHLORIDE 10 MEQ in WATER FOR INJECTION 1 100ML.BAG IVPB SCH ×7 (10:31→23:13)
[2023-04-24 11:34] LABS: Glucose,Whole Blood 197 mg/dL (70-110)
--- NOTE | 2023-04-24 11:47 | P.PN ---
Subjective Patient is seen in follow-up for acute kidney injury and hypernatremia. Currently on D5W. Sodium level 149 this morning. Oral intake poor. Poor h istorian. Vital signs are stable. General: No acute distress. HEENT: Head exam is unremarkable. LUNGS: No audible rhonchi or wheezes. HEART: Rate and Rhythm are regular. ABDOMEN: Nontender. EXTREMITITES: No edema. Objective - Vital Signs Vital signs: Vital Signs Temp 97.4 F L 04/24/23 07:34 Pulse 62 04/24/23 07:34 Resp 16 04/24/23 07:34 BP 131/62 04/24/23 07:34 Pulse Ox 98 04/24/23 07:34 FiO2 Intake & Output 04/23/23 04/24/23 04/24/23 18:59 06:59 18:59 Intake Total 110 Output Total 1000 450 Balance -890 -450 Intake: Oral 110 Output: Urine 1000 450 Other: Voiding Method Indwelling Catheter Indwelling Catheter Indwelling Catheter # Bowel Movements 1 - Labs CBC & Chem 7: 04/23/23 07:46 04/24/23 08:53 Labs: Abnormal Lab Results - Last 24 Hours (Table) 04/23/23 04/23/23 04/23/23 Range/Units 12:22 16:08 20:10 Sodium 155 H (137-145) mmol/L Potassium (3.5-5.1) mmol/L Chloride 127 H (98-107) mmol/L Carbon Dioxide 14 L (22-30) mmol/L BUN 33 H (7-17) mg/dL Glucose 140 H (74-99) mg/dL POC Glucose (mg/dL) 138 H 191 H (70-110) mg/dL 04/23/23 04/24/23 04/24/23 Range/Units 20:29 05:51 08:53 Sodium 151 H 149 H (137-145) mmol/L Potassium 2.8 L (3.5-5.1) mmol/L Chloride 114 H (98-107) mmol/L Carbon Dioxide (22-30) mmol/L BUN 25 H (7-17) mg/dL Glucose 240 H (74-99) mg/dL POC Glucose (mg/dL) 184 H (70-110) mg/dL 04/24/23 Range/Units 11:32 Sodium (137-145) mmol/L Potassium (3.5-5.1) mmol/L Chloride (98-107) mmol/L Carbon Dioxide (22-30) mmol/L BUN (7-17) mg/dL Glucose (74-99) mg/dL POC Glucose (mg/dL) 197 H (70-110) mg/dL Microbiology - Last 24 Hours (Table) 04/23/23 06:15 Urine Culture - Final Urine,Voided 04/20/23 15:49 Urine Culture - Final Urine,Clean Catch Proteus mirabilis Klebsiella pneumoniae Assessment and Plan Plan: Assessment: 1. Acute kidney injury secondary to vasomotor nephropathy from poor intake. Creatinine 1.69 on admission and is down to 0.96. 2. Hypernatremia from lack of oral water intake. Improving with D5W. 3. Hypokalemia from poor intake. On replacement protocol. 4. Diabetes mellitus. 5. Dementia. 6. Proteus and Klebsiella UTI on antibiotics. Plan: Maintain D5W. Repeat labs in the morning. Replace electrolytes as needed.
[2023-04-24] MEDS: DEXTROSE 5% IN WATER 1,000 ML IV SCH (11:51)
[2023-04-24] MEDS: ERTAPENEM 1 GM in SODIUM CHLORIDE 0.9% 50 ML IVPB SCH (13:59)
--- NOTE | 2023-04-24 15:47 | P.PN ---
Subjective Progress Note Date: 04/24/23 Principal diagnosis: Reason for follow-up with ESBL Klebsiella UTI Patient is a 78-year-old male with a past medical history significant for atrial fibrillation atrial flutter hypertension hyperlipidemia sleep apnea patient for evaluation of mental status changes diagnosed with the UTI treated with Rocephin subsequently urine cultures came back positive with ESBL Kle bsiella prompted this consultation. On today's evaluation that is 04/24/2023, the patient remains to be afebrile, the patient is breathing comfortably on room air, the patient is sleepy but arousable however nonverbal unable to provide any history no vomiting or diarrhea has been reported. Patient did have white count of 7.3 as of yesterday, creatinine 0.96, repeat UA is positive Objective - Vital Signs Vital signs: Vital Signs Temp 97.4 F L 04/24/23 07:34 Pulse 94 04/24/23 12:21 Resp 15 04/24/23 12:21 BP 128/59 04/24/23 12:21 Pulse Ox 98 04/24/23 12:21 FiO2 Intake & Output 04/23/23 04/24/23 04/24/23 18:59 06:59 18:59 Intake Total 110 Output Total 1000 450 400 Balance -890 -450 -400 Weight 90.718 kg Intake: Oral 110 Output: Urine 1000 450 400 Other: Voiding Method Indwelling Catheter Indwelling Catheter Indwelling Catheter # Bowel Movements 1 - Exam GENERAL DESCRIPTION: An elderly female lying in bed in no distress RESPIRATORY SYSTEM: Unlabored breathing , decreased breath sounds at bases HEART: S1 S2 regular rate and rhythm , ABDOMEN: Soft , no tenderness EXTREMITIES: No edema feet - Labs CBC & Chem 7: 04/23/23 07:46 04/24/23 08:53 Labs: Abnormal Lab Results - Last 24 Hours (Table) 04/23/23 04/23/23 04/23/23 Range/Units 16:08 20:10 20:29 Sodium 151 H (137-145) mmol/L Potassium (3.5-5.1) mmol/L Chloride (98-107) mmol/L BUN (7-17) mg/dL Glucose (74-99) mg/dL POC Glucose (mg/dL) 138 H 191 H (70-110) mg/dL 01/16/24 01/16/24 01/16/24 Range/Units 05:51 08:53 11:32 Sodium 149 H (137-145) mmol/L Potassium 2.8 L (3.5-5.1) mmol/L Chloride 114 H (98-107) mmol/L BUN 25 H (7-17) mg/dL Glucose 240 H (74-99) mg/dL POC Glucose (mg/dL) 184 H 197 H (70-110) mg/dL Microbiology - Last 24 Hours (Table) 04/23/23 06:15 Urine Culture - Final Urine,Voided 04/20/23 15:49 Urine Culture - Final Urine,Clean Catch Proteus mirabilis Klebsiella pneumoniae Assessment and Plan (1) Infection with ESBL Klebsiella oxytoca Current Visit: Yes Status: Acute Code(s): A49.8 - OTHER BACTERIAL INFECTIONS OF UNSPECIFIED SITE; Z16.12 - EXTENDED SPECTRUM BETA LACTAMASE (ESBL) RESISTANCE SNOMED Code(s): 6891364193 (2) UTI (urinary tract infection) Current Visit: No Status: Acute Code(s): N39.0 - URINARY TRACT INFECTION, SITE NOT SPECIFIED SNOMED Code(s): 52531231 Plan: 1patient presented to hospital with weakness mental status changes in this patient noted to have significantly positive UA with urine culture now finalized with ESBL Klebsiella 2-patient repeat UA still positive patient will continue with Invanz 1 g daily and monitor clinical course closely Dictation was produced using [employer] dictation software. please excuse any grammatical, word or spelling errors. Time with Patient: Less than 30
[2023-04-24 16:47] LABS: Glucose,Whole Blood 151 mg/dL (70-110)
[2023-04-24 19:43] LABS: Glucose,Whole Blood 138 mg/dL (70-110)
[2023-04-24] MEDS: ATORVASTATIN 20 MG TAB PO SCH (21:33)
[2023-04-24] MEDS: ASPIRIN 81 MG PO SCH (21:33)
[2023-04-25] MEDS: POTASSIUM CHLORIDE 10 MEQ in WATER FOR INJECTION 1 100ML.BAG IVPB SCH ×3 (00:12→02:15)
[2023-04-25] MEDS: DEXTROSE 5% IN WATER 1,000 ML IV SCH ×2 (04:38→13:02)
--- NOTE | 2023-04-25 05:17 | P.PN ---
Subjective Progress Note Date: 04/24/23 77-year-old female correction resident with advanced dementia was sent in here because of increased mental status changes and nonverbal. Patient usually is verbal and lately has become nonverbal patient doesn't have any fevers does have mild leukocytosis patient is found to have severe hyponatremia with serum sodium of 164 and clinically appears to be severely dehydrated due to poor by mouth intake. Patient also has lactic acidosis secondary to poor by mouth intake and patient blood sugars are very high. Unable to get any history from the patient. 04/20/2023 Patient is evaluated today in the ER pending a bed on the medical floor. Unable to gather history from the patient due to currently nonverbal. This is not usual for the patient. Sodium remains elevated at 165 and chloride elevated at 131. Continues on dextrose infusion and we will consult nephrology for further recommendations. Social work is also following. Patient does not appear to be in any distress or pain. 04/21/2023 Patient is still confused, she looks at me but she does not answer questions or follow commands She presents with severe hypernatremia 165 and placed on D5W, currently down to 154 Creatinine 1.6 down to 1.3 today Ativan, gabapentin and Januvia out on hold Patient continued on home dose of aspirin and Plavix Please Aric ya per protocol Case was discussed with bed side nurse 04/22/2023 Patient remains confused On half-normal saline Patient is not eating Urine culture is growing gram-negative bacilli started on Rocephin Infectious disease consult 04/23/2023 Patient for the first time today trying to talk with one towards and she is trying to follow simple commands although she does not accomplish perfectly. Her mentation start to improve for the first time over the last 2-3 days She remains on half-normal saline 75 mL/h. Sodium still elevated 155 creatinine back to the first range 0.9 Also her urine culture is positive for gram-negative bacilli 2, patient is started on Invanz. We will check a bladder scan Glucose is controlled Platelets slightly trended 188 down to 134 today. We'll keep monitoring while patient was subcu heparin Her Ativan gabapentin and Januvia are on hold and may be discontinued upon discharge Remains on aspirin 81 mg. Patient still not eating I discussed with bed side nurse to wait till tomorrow to do a swallow evaluation as her mentation start improving 04/24/2023 She was seen in follow-up today with infectious disease and nephrology following. Patient is awake until continues to be confused does not appear in any distress. Per nursing staff patient is not eating having continued clinical decline with no real quality of life. Patient is a resident at [facility] but plans on returning there on discharge. Patient is no code and will discuss further with family regarding treatment plan moving forward versus possible hospice. Patient is continued on IV antibiotics in the form of Invanz with infectious disease following this patient has Proteus and Klebsiella with ESBL in the urine. Patient is continued on D5 in water with nephrology following and sodium is slightly improved at 149 today. Review of systems: Unable to completely assess this patient is confused Physical exam: GENERAL: The patient is alert , confused, not in any acute distress. Well developed, ill-appearing, elderly appearing, obese HEENT: Pupils are round and equally reacting to light. EOMI. No scleral icterus. No conjunctival pallor. Normocephalic, atraumatic. No pharyngeal erythema. No thyromegaly. CARDIOVASCULAR: S1 and S2 present. No murmurs, rubs, or gallops. PULMONARY: Diminished breath sounds bilaterally Chest is clear to auscultation, no wheezing , wet cough noted that was weak ABDOMEN: Soft, nontender, nondistended, normoactive bowel sounds. No palpable organomegaly. MUSCULOSKELETAL: No joint swelling or deformity. EXTREMITIES: No cyanosis, clubbing, or pedal edema. NEUROLOGICAL: Gross neurological examination did not reveal any focal deficits. Diffusely weak SKIN: No rashes. no petechiae. Assessment: Severe hypernatremia: Hypovolemic hypernatremia currently being treated with D5 in water, sodium is 149 today -acute urinary tract infection, present on admission with cultures showing Proteus and Klebsiella with ESBL, continued on Invanz with infectious disease following -Diabetes mellitus type 2 , uncontrolled with hyperglycemia; continue Accu- Cheks before meals and at bedtime along with sliding scale and long-acting and adjust accordingly -Macrocytosis with normal B12 levels -Acute renal failure is secondary to dehydration and intravascular depletion prerenal azotemia, IV fluids as mentioned above, renal function improving. -Lactic acidosis secondary to dehydration, improved -Transaminitis nonspecific elevation secondary to severe dehydration and volume depletion improving and will repeat CMP. -Acute metabolic acidosis due to hyperchloremia , improving -Mild troponin elevation: Secondary to acute renal failure and dehydration, ACS ruled out -Advanced dementia mostly vascular, supportive care will use Seroquel as needed at nighttime if she has any agitation episodes which are expected -Do Not Resuscitate Do Not Intubate Plan: Patient to continue with IV Invanz with infectious disease following his repeat urinalysis continues to be positive. Per nursing staff patient is not eating and continues to be confused at her baseline Patient was advanced dementia will discuss further with family on treatment plan moving forward as patient is no code and will discuss possible hospice If mentation improves, repeat evaluation from speech Will follow-up on repeat labs to monitor kidney functions and replace electrolytes per protocol Plan was for patient to return to [facility] where she resides once stabilized and discharged The impression and plan of care has been dictated by Esthela Boyer, Nurse Practitioner as directed. Dr. Fernando MD I have performed a history and examination and MDM of this patient, discussed the same with the dictator, and agree with the dictator's assessment and plan as written ,documented as a scribe. Based on total visit time, I have performed more than 50% of the visit. Objective - Vital Signs Vital signs: Vital Signs Temp 97.4 F L 04/24/23 07:34 Pulse 62 04/24/23 07:34 Resp 16 04/24/23 07:34 BP 131/62 04/24/23 07:34 Pulse Ox 98 04/24/23 07:34 FiO2 Intake & Output 04/23/23 04/24/23 04/24/23 18:59 06:59 18:59 Intake Total 110 Output Total 1000 450 Balance -890 -450 Intake: Oral 110 Output: Urine 1000 450 Other: Voiding Method Indwelling Catheter Indwelling Catheter Indwelling Catheter # Bowel Movements 1 - Labs CBC & Chem 7: 04/23/23 07:46 04/24/23 20:35 Labs: Abnormal Lab Results - Last 24 Hours (Table) 04/23/23 04/23/23 04/23/23 Range/Units 07:46 11:20 12:22 Hgb 16.1 H (11.4-16.0) gm/dL Hct 53.1 H (34.0-46.0) % MCV 108.4 H D (80.0-100.0) fL MCHC 30.2 L (31.0-37.0) g/dL Plt Count 134 L (150-450) k/uL Macrocytosis Marked A Sodium 155 H (137-145) mmol/L Potassium (3.5-5.1) mmol/L Chloride 127 H (98-107) mmol/L Carbon Dioxide 14 L (22-30) mmol/L BUN 33 H (7-17) mg/dL Glucose 140 H (74-99) mg/dL POC Glucose (mg/dL) 122 H (70-110) mg/dL 04/23/23 04/23/23 04/23/23 Range/Units 16:08 20:10 20:29 Hgb (11.4-16.0) gm/dL Hct (34.0-46.0) % MCV (80.0-100.0) fL MCHC (31.0-37.0) g/dL Plt Count (150-450) k/uL Macrocytosis Sodium 151 H (137-145) mmol/L Potassium (3.5-5.1) mmol/L Chloride (98-107) mmol/L Carbon Dioxide (22-30) mmol/L BUN (7-17) mg/dL Glucose (74-99) mg/dL POC Glucose (mg/dL) 138 H 191 H (70-110) mg/dL 04/24/23 04/24/23 Range/Units 05:51 08:53 Hgb (11.4-16.0) gm/dL Hct (34.0-46.0) % MCV (80.0-100.0) fL MCHC (31.0-37.0) g/dL Plt Count (150-450) k/uL Macrocytosis Sodium 149 H (137-145) mmol/L Potassium 2.8 L (3.5-5.1) mmol/L Chloride 114 H (98-107) mmol/L Carbon Dioxide (22-30) mmol/L BUN 25 H (7-17) mg/dL Glucose 240 H (74-99) mg/dL POC Glucose (mg/dL) 184 H (70-110) mg/dL Microbiology - Last 24 Hours (Table) 04/20/23 15:49 Urine Culture - Final Urine,Clean Catch Proteus mirabilis Klebsiella pneumoniae
[2023-04-25] MEDS: TAMSULOSIN 0.4 MG CAP.ER.24H PO SCH (05:56)
[2023-04-25] MEDS: INSULIN DETEMIR (LEVEMIR) 100 UNIT/ML SYR SQ SCH (05:56)
[2023-04-25] MEDS: INSULIN ASPART (NovoLOG) 100 UNIT/ML VIAL SQ SCH ×3 (05:56→16:41)
[2023-04-25 05:57] LABS: Glucose,Whole Blood 156 mg/dL (70-110)
[2023-04-25] MEDS: ACETAMINOPHEN TAB 500 MG TAB PO SCH ×2 (05:57→12:51)
[2023-04-25] MEDS: CITALOPRAM HYDROBROMIDE 10 MG TAB PO SCH (05:57)
[2023-04-25] MEDS: CLOPIDOGREL 75 MG TAB PO SCH (05:57)
[2023-04-25 09:42] LABS: African American GFR (CKD) 76 (>60 ml/min/1.73 sqM); Anion Gap 4 mmol/L; Blood Urea Nitrogen 16 mg/dL (7-17); Calcium 8.5 mg/dL (8.4-10.2); Carbon Dioxide 24 mmol/L (22-30); Chloride 115 mmol/L (98-107); Glucose 180 mg/dL (74-99); Magnesium 2.1 mg/dL (1.6-2.3); Non-African American GFR(CKD) 66 (>60 ml/min/1.73 sqM); Potassium 3.8 mmol/L (3.5-5.1); Sodium 143 mmol/L (137-145)
[2023-04-25] MEDS: FAMOTIDINE 20 MG TAB PO SCH (09:55)
[2023-04-25] MEDS: CHOLECALCIFEROL 25 MCG (1000 IU) TABLET PO SCH (09:55)
[2023-04-25] MEDS: HEPARIN SODIUM,PORCINE 5,000 UNIT/ML 1 ML VIAL SQ SCH (09:55)
--- NOTE | 2023-04-25 11:14 | P.PN ---
Subjective Patient is seen in follow-up for acute kidney injury and hypernatremia. Currently on D5W. Sodium level 143 this morning. Oral intake poor. Poor h istorian. Son present at bedside. Vital signs are stable. General: No acute distress. HEENT: Head exam is unremarkable. LUNGS: No audible rhonchi or wheezes. HEART: Rate and Rhythm are regular. ABDOMEN: Nontender. EXTREMITITES: No edema. Objective - Vital Signs Vital signs: Vital Signs Temp 97.8 F 04/24/23 23:16 Pulse 61 04/25/23 04:35 Resp 18 04/25/23 04:35 BP 163/70 04/25/23 04:35 Pulse Ox 97 04/25/23 04:35 FiO2 Intake & Output 04/24/23 04/25/23 04/25/23 18:59 06:59 18:59 Output Total 400 700 Balance -400 -700 Weight 90.718 kg Output: Urine 400 700 Other: Voiding Method Indwelling Catheter Indwelling Catheter # Bowel Movements 1 1 - Labs CBC & Chem 7: 04/23/23 07:46 04/25/23 08:19 Labs: Abnormal Lab Results - Last 24 Hours (Table) 04/24/23 04/24/23 04/24/23 Range/Units 11:32 16:46 19:42 Potassium (3.5-5.1) mmol/L Chloride (98-107) mmol/L Glucose (74-99) mg/dL POC Glucose (mg/dL) 197 H 151 H 138 H (70-110) mg/dL 04/24/23 04/25/23 04/25/23 Range/Units 20:35 05:56 08:19 Potassium 3.2 L (3.5-5.1) mmol/L Chloride 115 H (98-107) mmol/L Glucose 180 H (74-99) mg/dL POC Glucose (mg/dL) 156 H (70-110) mg/dL Microbiology - Last 24 Hours (Table) 04/23/23 06:15 Urine Culture - Final Urine,Voided Assessment and Plan Plan: Assessment: 1. Acute kidney injury secondary to vasomotor nephropathy from poor intake. Cr eatinine 1.69 on admission and is down to 0.84. 2. Hypernatremia from lack of oral water intake. Improving with D5W. 3. Hypokalemia from poor intake. On replacement protocol. 4. Diabetes mellitus. 5. Dementia. 6. Proteus and Klebsiella UTI on antibiotics. Plan: Maintain D5W - decreased rate to 50 mL an hour. Replace electrolytes as needed. Hospice being considered.
[2023-04-25 11:54] LABS: Glucose,Whole Blood 170 mg/dL (70-110)
--- NOTE | 2023-04-25 12:18 | P.PN ---
Subjective Progress Note Date: 04/25/23 Principal diagnosis: Reason for follow-up with ESBL Klebsiella UTI Patient is a 78-year-old male with a past medical history significant for atrial fibrillation atrial flutter hypertension hyperlipidemia sleep apnea patient for evaluation of mental status changes diagnosed with the UTI treated with Rocephin subsequently urine cultures came back positive with ESBL Kle bsiella prompted this consultation. On today's evaluation that is 04/25/2023, the patient continues to be afebrile, the patient is breathing comfortably on room air, the patient is sleepy but arousable however did not answer any question, no vomiting or diarrhea has been reported. Oral intake remains to be poor Patient did have white count of 7.3 as of and 2023, creatinine is 0.84, repeat UA is positive Objective - Vital Signs Vital signs: Vital Signs Temp 97.8 F 04/24/23 23:16 Pulse 61 04/25/23 04:35 Resp 18 04/25/23 04:35 BP 163/70 04/25/23 04:35 Pulse Ox 97 04/25/23 04:35 FiO2 Intake & Output 04/24/23 04/25/23 04/25/23 18:59 06:59 18:59 Output Total 400 700 Balance -400 -700 Weight 90.718 kg Output: Urine 400 700 Other: Voiding Method Indwelling Catheter Indwelling Catheter # Bowel Movements 1 1 - Exam GENERAL DESCRIPTION: An elderly female lying in bed in no distress RESPIRATORY SYSTEM: Unlabored breathing , decreased breath sounds at bases HEART: S1 S2 regular rate and rhythm , ABDOMEN: Soft , no tenderness EXTREMITIES: No edema feet - Labs CBC & Chem 7: 04/23/23 07:46 04/25/23 08:19 Labs: Abnormal Lab Results - Last 24 Hours (Table) 04/24/23 04/24/23 04/24/23 Range/Units 16:46 19:42 20:35 Potassium 3.2 L (3.5-5.1) mmol/L Chloride (98-107) mmol/L Glucose (74-99) mg/dL POC Glucose (mg/dL) 151 H 138 H (70-110) mg/dL 04/25/23 04/25/23 04/25/23 Range/Units 05:56 08:19 11:52 Potassium (3.5-5.1) mmol/L Chloride 115 H (98-107) mmol/L Glucose 180 H (74-99) mg/dL POC Glucose (mg/dL) 156 H 170 H (70-110) mg/dL Microbiology - Last 24 Hours (Table) 04/23/23 06:15 Urine Culture - Final Urine,Voided Assessment and Plan (1) Infection with ESBL Klebsiella oxytoca Current Visit: Yes Status: Acute Code(s): A49.8 - OTHER BACTERIAL INFECTIONS OF UNSPECIFIED SITE; Z16.12 - EXTENDED SPECTRUM BETA LACTAMASE (ESBL) RESISTANCE SNOMED Code(s): 8415970652 (2) UTI (urinary tract infection) Current Visit: No Status: Acute Code(s): N39.0 - URINARY TRACT INFECTION, SITE NOT SPECIFIED SNOMED Code(s): 88217500 Plan: 1patient presented to hospital with weakness mental status changes in this patient noted to have significantly positive UA with urine culture now finalized with ESBL Klebsiella 2-patient repeat UA still positive patient will continue with Invanz 1 g daily, with a possible plan for hospice if that is the case antibiotics can be safely discontinued Son at the bedside questions were answered Dictation was produced using [employer] dictation software. please excuse any grammatical, word or spelling errors. Time with Patient: Less than 30
[2023-04-25] MEDS: ERTAPENEM 1 GM in SODIUM CHLORIDE 0.9% 50 ML IVPB SCH (14:47)
[2023-04-25 14:59] VITALS: RESP 16
--- NOTE | 2023-04-25 15:21 | P.DS ---
Providers Date of admission: 04/19/23 04:28 Expected date of discharge: 04/25/23 Attending physician: Kartik Horta Consults: 04/20/23 11:46 Consult Physician Routine Consulting Provider: Rosalina Mandujano Consult Reason/Comments: hypernatremia Do you want consulting provider notified?: Yes 04/22/23 20:22 Consult Physician Urgent Consulting Provider: Anthony Champion Consult Reason/Comments: uti Do you want consulting provider notified?: Yes Primary care physician: Physician Nonstaff Hospital Course: Final diagnosis -Severe hypernatremia: Hypovolemic hypernatremia, improved on D5 in water, sodium is 143 today -acute urinary tract infection, present on admission with cultures showing Proteus and Klebsiella with ESBL, continued on Invanz -Diabetes mellitus type 2 , uncontrolled with hyperglycemia -Macrocytosis with normal B12 levels -Acute renal failure is secondary to dehydration and intravascular depletion prerenal azotemia -Lactic acidosis secondary to dehydration, improved -Transaminitis nonspecific elevation secondary to severe dehydration and volume depletion -Acute metabolic acidosis due to hyperchloremia , improving -Mild troponin elevation: Secondary to acute renal failure and dehydration, ACS ruled out -Advanced dementia mostly vascular -Do Not Resuscitate Do Not Intubate Discharge disposition Patient is being discharged in a stable condition with guarded prognosis to [facility]. Patient will follow-up with primary care provider in the outpatient setting upon discharge. Patient is returning with [facility] hospice services on hospice care. Total time taken is greater than 35 minutes. Hospital course This is a 77-year-old female who was recently admitted with altered mental status and advanced dementia with concerns of severe hypernatremia with a sodium of 164 on admission and severely dehydrated patient also with lactic acidosis with concerns of UTI. Cultures finalized with Proteus as well as Klebsiella ESBL with infectious disease following maintained on IV Invanz. Patient has had significant clinical decline and per son has been declining over the last few months. Patient is not eating and is nonverbal with advancing dementia has discussed with hospice and is agreeable to [facility] hospice services. Patient will be returning to [facility] where she resides on hospice care. Overall prognosis is poor. Please refer to other consultation notes for further HPI. Physical exam: Gen: This is a 77-year-old female who is asleep, minimally arousable, alert and oriented 0-1, flat affect, ill-appearing, elderly appearing, obese HEENT: Head is atraumatic, normocephalic. Pupils equal, round. Sclerae is anicteric. NECK: Supple. No JVD. No lymphadenopathy. No thyromegaly. LUNGS Diminished breath sounds bilaterally with some scattered rhonchi And crackles noted. No intercostal retractions. HEART: Regular rate and rhythm. No murmur. ABDOMEN: Soft. obese. Bowel sounds are present. No masses. No tenderness. EXTREMITIES: No pedal edema. No calf tenderness. NEUROLOGICAL: Patient is awake, alert and oriented x0-1. mostly bedbound and diffusely weak Please refer to medication reconciliation sheet for a list of medications. The impression and plan of care has been dictated by Esthela Boyer, Nurse Practitioner as directed. Dr. Fernando MD I have performed a history and examination and MDM of this patient, discussed the same with the dictator, and agree with the dictator's assessment and plan as written ,documented as a scribe. Based on total visit time, I have performed more than 50% of the visit. Patient Condition at Discharge: Poor Plan - Discharge Summary Discharge Rx Participant: No New Discharge Prescriptions: Continue sitaGLIPtin PHOSPHATE [Januvia] 100 mg PO DAILY@0700 Clopidogrel Bisulfate [Plavix] 75 mg PO DAILY@0700 Atorvastatin [Lipitor] 20 mg PO HS@1999 Citalopram Hydrobromide [CeleXA] 10 mg PO DAILY@0700 Cholecalciferol [Vitamin D3 (25 Mcg = 1000 Iu)] 50 mcg PO DAILY@0700 Aspirin 81 mg PO HS@1999 Acetaminophen [Tylenol Extra Strength] 500 mg PO TID@0700,1300,1900 Tamsulosin [Flomax] 0.4 mg PO DAILY@0700 Empagliflozin [Jardiance] 10 mg PO DAILY@0700 QUEtiapine [SEROquel] 12.5 mg PO HS@1999 Discontinued LORazepam [Ativan] 0.5 mg PO TID@0700,1300,1900 Gabapentin [Neurontin] 100 mg PO TID@0700,1300,1900 Discharge Medication List Atorvastatin [Lipitor] 20 mg PO HS@199904/23/20 [History] Clopidogrel Bisulfate [Plavix] 75 mg PO DAILY@0700 04/23/20 [History] sitaGLIPtin PHOSPHATE [Januvia] 100 mg PO DAILY@0700 04/23/20 [History] Cholecalciferol [Vitamin D3 (25 Mcg = 1000 Iu)] 50 mcg PO DAILY@0708/12/20 [History] Acetaminophen [Tylenol Extra Strength] 500 mg PO TID@0700,1300,1900 05/11/21 [History] Aspirin 81 mg PO HS@199905/11/21 [History] Tamsulosin [Flomax] 0.4 mg PO DAILY@0712/28/21 [History] Citalopram Hydrobromide [CeleXA] 10 mg PO DAILY@69904/19/23 [History] Empagliflozin [Jardiance] 10 mg PO DAILY@69904/19/23 [History] QUEtiapine [SEROquel] 12.5 mg PO HS@199904/19/23 [History] Follow up Appointment(s)/Referral(s): Nonstaff,Physician [Primary Care Provider] - 1-2 days Activity/Diet/Wound Care/Special Instructions: [facility] on hospice Activity as tolerated Patient will continue with [facility] hospice services Discharge Disposition: HOME WITH HOSPICE
[2023-04-25 16:38] LABS: Glucose,Whole Blood 136 mg/dL (70-110)
[2023-04-25 18:19] VITALS: BP 141/63; PULSE 62; TEMP 98.1
== END 2023-04-25 20:34 | disposition hospice, inpatient (51) | DRG 640 ==
LOC: EC 22:28 → 3SCARD 04-19 04:28
PROVIDERS: ADMIT Hospitalist; ATTEND Hospitalist
DX: E86.0 Dehydration (principal); G93.41 Metabolic encephalopathy; N17.0 Acute kidney failure with tubular necrosis; F03.93 Unspecified dementia, unspecified severity, with mood disturbance; N39.0 Urinary tract infection, site not specified; F05 Delirium due to known physiological condition; Z16.12 Extended spectrum beta lactamase (ESBL) resistance; E87.0 Hyperosmolality and hypernatremia; E87.21 Acute metabolic acidosis; E87.1 Hypo-osmolality and hyponatremia; Z11.52 Encounter for screening for COVID-19; E78.5 Hyperlipidemia, unspecified; I10 Essential (primary) hypertension; E11.65 Type 2 diabetes mellitus with hyperglycemia; E53.8 Deficiency of other specified B group vitamins; F32.A Depression, unspecified; B96.4 Proteus (mirabilis) (morganii) as the cause of diseases classified elsewhere; Z87.891 Personal history of nicotine dependence; B96.1 Klebsiella pneumoniae [K. pneumoniae] as the cause of diseases classified elsewhere; D86.9 Sarcoidosis, unspecified; Z87.442 Personal history of urinary calculi; Z87.440 Personal history of urinary (tract) infections; Z86.14 Personal history of Methicillin resistant Staphylococcus aureus infection; E11.649 Type 2 diabetes mellitus with hypoglycemia without coma; E86.1 Hypovolemia; E87.6 Hypokalemia; E87.8 Other disorders of electrolyte and fluid balance, not elsewhere classified; I48.91 Unspecified atrial fibrillation; Z79.02 Long term (current) use of antithrombotics/antiplatelets; Z79.82 Long term (current) use of aspirin; Z79.84 Long term (current) use of oral hypoglycemic drugs; Z79.899 Other long term (current) drug therapy; Z66 Do not resuscitate; F01.50 Vascular dementia, unspecified severity, without behavioral disturbance, psychotic disturbance, mood disturbance, and anxiety; R74.01 Elevation of levels of liver transaminase levels; D75.89 Other specified diseases of blood and blood-forming organs
CPT/HCPCS: 36415; 71045; 80048; 80053; 81001; 82009; 82570; 82607; 83605; 83735; 83930; 83935; 84132; 84133; 84145; 84295; 84300; 84484; 85025; 85027; 87077; 87086; 87186; 87636; 96360; 96361; 96372; 99285